=== PATIENT | female | born 1995 | race Caucasian/White ===

== ENCOUNTER 2017-11-08 21:16 | Emergency (ER) | payer OTHER, MEDICAID, SELFPAY ==
[2017-11-08 21:18] VITALS: BP 125/63; PULSE 80; RESP 18; TEMP 36.6; O2SAT 98; BMI 30.2
--- NOTE | 2017-11-08 22:23 | NURSING ---
PATIENT UNABLE TO PROVIDE A URINE SAMPLE AT THIS TIME.
[2017-11-08] MEDS: Acetaminophen 500 MG Tablet 1000 MG PO (23:04)
[2017-11-08] MEDS: proMETHazine 25 MG Tablet PO (23:05)
--- NOTE | 2017-11-08 23:26 | ED.VISSUMM ---
- ER Visit Summary Date of Service: 11/08/17 Chief Complaint: Back pain History of Present Illness: The patient is a 22 F increasing lower back pain over the past 2 days. States pain goes down both legs. No loss of bowel or bladder control. Patient is 7 weeks 5 days . . Using Tylenol, last dose at noon, however states she vomited up. Complains of nausea. Saw OB on Friday with the official ultrasound. History of similar when she was younger, requiring therapy. Currently on vitamins. Symptoms started after cleaning her car thinks she tweaked something. Was told she had herniated disc in the past. No surgical intervention. In addition states she had a UTI from a culture started on Macrobid 2 days ago. Is taking her medications. Denies fever. Physical Examination: General: Alert and oriented ?3, uncomfortable s HEENT: Normocephalic, atraumatic. Moist mucosa membranes Neck: supple, nontender. Cardiovascular: Regular rate and rhythm, no murmurs Respiratory: Normal breath sounds, symmetric, no distress Back: Lower lumbar tenderness. Straight leg test was negative however did elicit pain in her back. 2+ patellar reflex bilaterally. Abdomen: Soft, nontender, nondistended Extremities: Nontender, no edema, pulses intact ?4 Neuro: no focal neurological deficits. Test Results: [] Emergency Department Course and Treatment: Bedside ultrasound performed heart tone was 128. Patient history exam concerns for high sciatica symptoms for possible herniation with her history. She had no cauda equina symptoms. Discussed with patient parents at bedside and significant other, with her , safe treatment would be continuing Tylenol. Discussed increasing pain medicines will have more risk for her fetus. They understand. With her nausea symptoms she is given Phenergan and was able to keep down that in her Tylenol. She will call her physicians on Friday for outpatient follow-up for further treatment. All questions were answered. Patient currently on treatment for UTI from a culture result. Therefore UA was canceled. Treatment Plan: [] Disposition: Discharge Impression: 1. Sciatica 2. First trimester This note was generated with Neprisation software. It may contain incorrect words, spelling, and punctuation that were not noted in review of the chart prior to signing ED Disposition - Plan for ED Patient: Disposition: Home or Assisted Living Chief Complaint: Back Diagnosis: Sciatica, First trimester Instructions: ED Sciatica Prescriptions: proMETHazine tablet [Phenergan] 25 mg PO Q6H PRN PRN #10 tablet PRN Reason: Nausea Referrals: Ernst Gottlieb MD [Primary Care Provider] - 2 Days
--- NOTE | 2017-11-08 23:30 | ED.DCSUM_ITS ---
- ER Visit Summary Date of Service: 11/08/17 Chief Complaint: Back pain History of Present Illness: The patient is a 22 F increasing lower back pain over the past 2 days. States pain goes down both legs. No loss of bowel or bladder control. Patient is 7 weeks 5 days . . Using Tylenol, last dose at noon, however states she vomited up. Complains of nausea. Saw OB on Friday with the official ultrasound. History of similar when she was younger , requiring therapy. Currently on vitamins. Symptoms started after cleaning her car thinks she tweaked something. Was told she had herniated disc in the past. No surgical intervention. In addition states she had a UTI from a culture started on Macrobid 2 days ago. Is taking her medications. Denies fever. Physical Examination: General: Alert and oriented ?3, uncomfortable s HEENT: Normocephalic, atraumatic. Moist mucosa membranes Neck: supple, nontender. Cardiovascular: Regular rate and rhythm, no murmurs Respiratory: Normal breath sounds, symmetric, no distress Back: Lower lumbar tenderness. Straight leg test was negative however did elicit pain in her back. 2+ patellar reflex bilaterally. Abdomen: Soft, nontender, nondistended Extremities: Nontender, no edema, pulses intact ?4 Neuro: no focal neurological deficits. Test Results: [] Emergency Department Course and Treatment: Bedside ultrasound performed heart tone was 128. Patient history exam concerns for high sciatica symptoms for possible herniation with her history. She had no cauda equina symptoms. Discussed with patient parents at bedside and significant other, with her , safe treatment would be continuing Tylenol. Discussed increasing pain medicines will have more risk for her fetus. They understand. With her nausea symptoms she is given Phenergan and was able to keep down that in her Tylenol. She will call her physicians on Friday for outpatient follow-up for further treatment. All questions were answered. Patient currently on treatment for UTI from a culture result. Therefore UA was canceled. Treatment Plan: [] Disposition: Discharge Impression: 1. Sciatica 2. First trimester This note was generated with TickTickTicketsation software. It may contain incorrect words, spelling, and punctuation that were not noted in review of the chart prior to signing ED Disposition - Plan for ED Patient: Disposition: Home or Assisted Living Chief Complaint: Back Diagnosis: Sciatica, First trimester Instructions: ED Sciatica Prescriptions: proMETHazine tablet [Phenergan] 25 mg PO Q6H PRN PRN #10 tablet PRN Reason: Nausea Referrals: Ernst Gottlieb MD [Primary Care Provider] - 2 Days
[2017-11-08 23:38] VITALS: BP 124/70; PULSE 66; O2SAT 97
== END 2017-11-08 23:47 | disposition home or self-care (01) ==
PROVIDERS: Emergency Provider Emergency Medicine; Family Provider Pediatrics; PCP Pediatrics
DX: O99.89 Other specified diseases and conditions complicating pregnancy, childbirth and the puerperium (principal); M54.41 Lumbago with sciatica, right side; M54.42 Lumbago with sciatica, left side; O23.41 Unspecified infection of urinary tract in pregnancy, first trimester; Z3A.01 Less than 8 weeks gestation of pregnancy
CPT/HCPCS: 99283

== ENCOUNTER 2018-03-15 14:59 | Emergency (ER) | payer MEDICAID, SELFPAY ==
[2018-03-15 15:00] VITALS: BP 108/65; PULSE 105; RESP 16; TEMP 37.4; O2SAT 98; BMI 29.9
--- NOTE | 2018-03-15 15:31 | RAD_ITS ---
STUDY: X-RAY CHEST REASON FOR EXAM: Female, 22 years old. Cough and fever. TECHNIQUE: Frontal and lateral views of the chest. COMPARISON: None. FINDINGS: The lungs are clear and expanded. There is no demonstrated pleural abnormality. Normal size heart. Normal mediastinum and alphonse. Normal visualized pulmonary arteries. Normal visualized aortic arch and descending thoracic aorta. Normal visualized thoracic spine. Normal visualized ribs, clavicles, and shoulders. There is no demonstrated abnormality of the visualized soft tissue structures of the upper abdomen. RAD/Chest PA and Lateral IMPRESSION: Normal x-ray examination of the chest. Electronically Signed: Oliver Verma MD at 16:04 EDT , Service support ,
--- NOTE | 2018-03-15 16:12 | ED.VISSUMM ---
- ER Visit Summary Date of Service: 03/15/18 Chief Complaint: Shortness of breath cough and fever History of Present Illness: The patient is a 22 F who is 26 weeks . She states that beginning yesterday she has had rhinorrhea cough without sputum production. She notes nausea tributes to coughing. She states her temperature has been 99.9 at its maximum. She sees the [facility] at [facility]. Physical Examination: Afebrile vital signs are stable Gen: Well-nourished well-developed Head: Normocephalic atraumatic Eyes: Perrl EOMI ENT: TMs clear rhinorrhea and turbinate edema moist mucous membranes Neck: Supple no lymphadenopathy no JVD nontender CVS: Regular rate rhythm no murmurs normal S1-S2 Respiratory: No distress clear to auscultation bilaterally chest nontender Abdomen: Soft nontender nondistended normal bowel sounds no masses Back: Nontender Extremity: Nontender no edema Skin: Normal color no rash Neuro: alert orientated ?3 CN II-XII intact normal strength sensation reflexes gait cerebellar Psych: Normal affect normal mood Test Results: Chest x-ray negative. Emergency Department Course and Treatment: Received IV fluids. Tylenol and Zofran. Urinalysis shows ketones. No white cells. It is contaminated with some epithelial cells. Patient be discharged home with supportive care. I will write for some Phenergan. Impression: 1. Sinusitis 2. Third trimester 3. Dehydration This note was generated with Wee[employer] dictation software. It may contain incorrect words, spelling, and punctuation that were not noted in review of the chart prior to signing ED Disposition - Plan for ED Patient: Disposition: Home or Assisted Living Chief Complaint: Shortness of Breath Instructions: ED Sinusitis No Abx Prescriptions: proMETHazine tablet [Phenergan] 25 mg PO Q6H PRN PRN #10 tab PRN Reason: Nausea Referrals: Ginny Wiseman CNM [Certified Nurse [employer] Farmworker] - As Needed
[2018-03-15] MEDS: 0.9% Normal Saline 1,000 ML 999 ML IV (16:14)
[2018-03-15] MEDS: Acetaminophen 500 MG Tablet 1000 MG PO (16:14)
[2018-03-15] MEDS: Ondansetron 4 MG/2 ML Vial IV (16:15)
[2018-03-15 16:44] LABS: Red Blood Cells-Urine 0 SEEN /hpf (0-5)
[2018-03-15 16:45] LABS: Color, Urine Yellow (Yellow); Glucose, Dipstick Normal (Normal); Ketone-Dipstick 150 mg/dl (Negative); Leukocyte Esterase-Dipstick 25 /ul (Negative); Nitrite-Dipstick Negative (Negative); Occult Blood-Urine Negative /ul (Negative); Protein-Dipstick 30 mg/dl (Negative); Urine Bilirubin Dipstick 1 mg/dL (Negative); Urine Clarity Clear (Clear); Urine Urobilinogen 4 mg/dl (Normal)
[2018-03-15 16:55] LABS: White Blood Cells 0-5 SEEN /hpf (0-5)
[2018-03-15 16:56] LABS: Bacteria 2+ /hpf (None Seen); Mucous, Urine 3+ /hpf (<or=2+); Squamous Epithelial Cells - UA 10-25 SEEN /hpf (5-10)
[2018-03-15 17:13] VITALS: BP 123/88; PULSE 84; RESP 16; O2SAT 98
--- NOTE | 2018-03-15 17:13 | ED.RN ---
REVIEWED D/C INSTRUCTIONS, FOLLOW UP CARE, PRESCRIPTION, AND S/S THAT WOULD WARRANT A RETURN TO THE ED WITH PT. PT VERBALIZED AN UNDERSTANDING AND DENIES FURTHER QUESTIONS FOR THIS RN. PT SKIN P/W/D, RESP EVEN AND UNLABORED, PT A&O X 3, NO DISTRESS NOTED. PT AMBULATED OUT OF ED, GAIT STEADY.
== END 2018-03-15 17:14 | disposition home or self-care (01) ==
PROVIDERS: Emergency Provider Emergency Medicine
DX: O99.89 Other specified diseases and conditions complicating pregnancy, childbirth and the puerperium (principal); J32.9 Chronic sinusitis, unspecified; E86.0 Dehydration; Z3A.26 26 weeks gestation of pregnancy
CPT/HCPCS: 71046; 81001; 96361; 96374; 99283; J7030; A4216; J2405

== ENCOUNTER 2018-06-21 18:20 | Outpatient (CLI) | payer MEDICAID, SELFPAY ==
[2018-06-21 18:51] VITALS: BMI 34.0
[2018-06-21 19:13] LABS: ROM Internal Control Test YES-OK TO RESULT pt. (Internal QC); ROM Patient Test Negative (Negative)
--- NOTE | 2018-06-26 19:43 | OB.TRI.NOTE ---
History of Present Illness Date of Service: 06/21/18 Was patient seen by the physician?: No Reason For Visit: RULE OUT LABOR Date of Service: 06/21/18 Final CHUCK: 06/21/18 Gestational age: 40 Weeks and 5 Days Allergies No Known Allergies Allergy (Verified 06/21/18 18:53) Laboratory Studies: Laboratory Tests 06/21/18 Range/Units 18:45 Vag Amniotic Fld Detect Negative (Negative) Impression/Plan High risk primigravida at 40 weeks gestation false labor
== END 2018-06-21 20:50 | disposition home or self-care (01) ==
LOC: WPOUT 18:39 → WP 18:43
PROVIDERS: Referring Provider Obstetrics & Gynecology; Visit Provider Obstetrics & Gynecology
DX: O47.1 False labor at or after 37 completed weeks of gestation (principal); O09.93 Supervision of high risk pregnancy, unspecified, third trimester; Z3A.40 40 weeks gestation of pregnancy
CPT/HCPCS: 59025; 59050; 84112; 99218; G0378

== ENCOUNTER 2018-06-22 22:25 | Inpatient (IN) | payer MEDICAID, SELFPAY ==
[2018-06-21 18:51] VITALS: BMI 34.0
[2018-06-22 21:53] VITALS: BMI 33.6
[2018-06-22 22:19] LABS: ROM Internal Control Test YES-OK TO RESULT pt. (Internal QC); ROM Patient Test POSITIVE (Negative)
[2018-06-22] MEDS: Lactated Ringers 1,000 ML 50 ML IV (22:50)
[2018-06-22 23:20] LABS: Hematocrit 33.5 % (37-47); Hemoglobin 10.8 g/dl (12.0-15.0); Mean Corp Hgb Conc 32.2 g/gl (32-36); Mean Corpuscular Hgb 25.9 pg (27.0-32.0); Mean Corpuscular Volume 80.3 fL (81-99); Mean Platelet Vol. 12.7 fl (6.2-12.0); Platelet Count 215 K/mm3 (150-450); RBC Distribution Width CV 13.8 % (11.6-14.6); RBC Distribution Width SD 40.6 fl (35.1-43.9); Red Blood Count 4.17 M/mm3 (4.2-5.4); White Blood Count 14.9 K/mm3 (4.4-11.0)
[2018-06-22 23:22] LABS: Scan Indicated on CBC? Y/N NO
[2018-06-22] MEDS: Nalbuphine 10 MG/ML Ampul IV (23:34)
[2018-06-23] VITALS (11 sets, daily range): BP systolic 124–153; BP diastolic 43–92; PULSE 63–100; RESP 16–18; TEMP 37–37.4; O2SAT 95–98
[2018-06-23] MEDS: Lactated Ringers 1,000 ML 50 ML IV ×4 (00:05→17:25)
[2018-06-23] MEDS: fentaNYL-bupivacaine (epidural) 100 ML BAG EPIDURAL ×4 (00:45→14:54)
[2018-06-23] MEDS: Acetaminophen 500 MG Tablet 1000 MG PO ×2 (03:08→11:16)
--- NOTE | 2018-06-23 06:30 | HP.PCM_ITS ---
- Problem List (1) PROM with onset of labor within 24 hours of rupture Status: Acute Qualifiers: PROM gestational age: full term Qualified Code(s): O42.02 - Full-term premature rupture of membranes, onset of labor within 24 hours of rupture History Date of Admission: 06/22/18 Final CHUCK: 06/22/18 Final CHUCK Source: US <20 weeks Gestational age: 40 Weeks and 1 Days History of this : This is a 22 year-old, G [], P [], at 40 weeks gestational age. Allergies No Known Allergies Allergy (Verified 06/21/18 18:53) Home Medications: Home Medications Vit No.130/Iron/FA [ Vitamins] 1 each PO DAILY 03/15/18 Smoking Status: Former smoker Alcohol: None Substance Use Type: Alcohol Number of Fetus(es): 1 Heart Tracing: Baseline 125, moderate variability, + accels, no decels TOCO Analysis: Ctx q 2-6 minutes, palpate strong History Past Pregnancies: Past Pregnancies Delivery Date Name GA/Weeks Outcome Route Weight Gender Labor Length Anesthesia Delivery Location Provider FOB Labs: O+ Abs Neg, H/H = 14.6/44.7 -->11.9/36.4, Rubella NON-IMM, GBS POSITIVE, GC/CT = Neg/Neg, 1 hour GCT = 101, Urine Culture = Negative, Syphilis = Negative, HepBsAg = Negative, Urine Tox = Negative Expected Delivery Method: Spontaneous Vaginal Describe any other labor & delivery plans:: Epidural Number of Visits: 14 Review of Systems Constitutional: Denies: Chills, Fever, Weight Change HEENT: Denies: Head Aches, Sinus Congestion, Sinus Drainage Cardiovascular: Denies: Chest Pain, Palpitations Respiratory: Denies: Cough, Shortness of breath at rest, Sputum production Gastrointestinal: Denies: Abdominal Pain, Nausea, Vomiting Genitourinary: Denies: Dysuria Gynecological: Reports: Vaginal discharge - Scant clear fluid - +ROM plus Musculoskeletal: Denies: Joint Pain, Joint Tenderness Skin: Denies: Rash, Wounds Neurological: Denies: Numbness, Tingling, Focal weakness Psychiatric: Denies: Anxiety, Depression, Homicidal Ideations, Suicidal Ideations Hematologic/ Lymphatic: Denies: Easy Bruising, Easy Bleeding Physical Exam Vitals: See nursing notes for vital signs General: Alert, Oriented x3, No apparent distress HEENT: Atraumatic, Normocephalic. Negative for: Thyromegaly, Lymphadenopathy Cardiovascular: Regular rate, Regular Rhythm Lungs: Normal air movement Abdomen: Soft, Non Tender, Non-Distended Neurological: Deep Tendon Reflexes 2+/4 and Symmetrical, Neuro grossly intact LIGHT ARMORED RECONNAISSANCE OFFICER: Normal external genitalia. Negative for: Vulvar lesions Estimated gestational size: Appropriate for gestational size Presentation: Cephalic Cervix Dilation (cm): 1 - Exam on admission by RN Station: -2 Effacement (%): 85 Assessment/Plan All Active Problems PROM with onset of labor within 24 hours of rupture (Acute) This is a 22 year-old, G [1], P [0], at 40 weeks gestational age, PROM, Category I FHT. 1) Admit Patient, Dr. Platt OB back-up notified of admission 2) Start IV, draw CBC and T+S, start PCN abx for GBS prophylaxis 3) Nubain 10mg IV push x 1 now 4) Epidural on demand after 3cm 5) Encourage position changes and PO hydration 6) Reassess for cervical change PRN Marilee Allison RADIO FREQUENCY ENGINEER-CNM
--- NOTE | 2018-06-23 06:36 | PCM.PN.BLA ---
Progress Note Addendum: Patient labored well throughout the night. Made spontaneous progression to 4-5cm and then 8cm/100/0 @ 0445. Category I FHT still noted at this time. Isolated elevated temperature noted by nursing after patient received epidural. Patient noted to have very concentrated urine also. Fluid bolus and 1 g Tylenol given and temperature retaken in 1 hour; last temp was 98.3F. No evidence of maternal or tachycardia noted. Will continue to monitor patient for signs/symptoms of fever and infection. Anticipate reassessment for cervical change by 0700. If minimal or no change, anticipate placement of FSE and IUPC with plans to start IV pitocin for labor augmentation. Marilee MARQUEZ
--- NOTE | 2018-06-23 06:58 | PCM.PN.OB ---
Patient Problems: Active and Suspected Problems PROM with onset of labor within 24 hours of rupture (Acute) Subjective: Patient comfortable sitting up in bed with epidural. Denies any other issues at this time. Reports some occasional pelvic pressure sensations during contractions. Decision made for repeat SVE at this time. Objective: FHT baseline 130, moderate variability, + accels, no decels noted Ctx q 2-6 minutes, palpating mild to moderately strong SVE = 8/100/0 unchanged, +caput. - Physical Exam General: Alert, Oriented x3, Cooperative HEENT: Atraumatic, Normocephalic Lungs: Normal air movement Abdomen: Non Tender, Gravid, - - Baby LOT by Chuckie's with EFW = 8# Extremities: No edema, Capillary Refill Less than 3 Seconds Skin: No rashes, No breakdown Musculoskeletal: No Tenderness to Palpation of Joints or Extremities Neurological: Cranial nerves II-XII grossly intact Psych/Mental Status: Normal Affect, Appropriate Weight: 215 lb Body Mass Index (BMI) 33.6 Laboratory Tests Past 24 Hrs 06/22/18 06/22/18 06/22/18 21:35 23:00 23:00 WBC 14.9 H RBC 4.17 L Hgb 10.8 L Hct 33.5 L MCV 80.3 L MCH 25.9 L MCHC 32.2 RDW 13.8 RDW Differential 40.6 Plt Count 215 MPV 12.7 H Vag Amniotic Fld Detect POSITIVE H Blood Type O POSITIVE Antibody Screen NEGATIVE Medical Necessity - Tobacco Use Smoking Status: Former smoker Assessment/Plan All Active Problems PROM with onset of labor within 24 hours of rupture (Acute) 22 y/o @ 40+1weeks, Category I FHT, PROM x 14 hours, GBS Postiive with adequate treatment, Protracted Transition Stage of Labor P: 1) IUPC and FSE placed 2) If inadequate ctx noted, start IV Pitocin for labor augmentation 3) Anticipate 4) Oncoming provider Dr. Cuellar updated on patient status Marilee MARQUEZ
[2018-06-23] MEDS: Oxytocin 30 units/NS 500 ml 30 UNITS/500 ML IV.SOLN IV (08:00)
--- NOTE | 2018-06-23 11:55 | PCM.PN.BLA ---
Progress Note pt seen at bedside, VE performed- AL/100/0 with Caput noted. Pt with second fever of 100.9F- no foul discharge noted but patient is warm to touch on exam. Pt received 1000mg Tylenol approx 11:15am- has had 4 doses PCN for +GBS. will Order Gentamycin 5mg/kg x 1 dose. Will get CBC with diff. continue Pitocin. FHR category 1 at this time. will continue to labor.
[2018-06-23] MEDS: Ondansetron 4 MG/2 ML Vial IV (12:33)
[2018-06-23] MEDS: 0.9% Saline Lock 10 ML Syringe IV ×2 (12:40→15:11)
[2018-06-23 12:48] LABS: Absolute Lymphocyte Count 1.09 X10^3/ul (0.83-4.51); Absolute Neutrophil Count 12.1 X10^3/uL (2.0-7.7); Basophil# 0.01 X10^3/uL; Basophil% 0.1 % (0-1); Eosinophil# 0.02 X10^3/uL; Eosinophils% 0.1 % (0-5); Hematocrit 32.8 % (37-47); Hemoglobin 10.5 g/dl (12.0-15.0); Lymphocyte # 1.09 X10^3/ul (4.0); Lymphocyte % 7.3 % (19-41); Mean Corpuscular Hgb 25.8 pg (27.0-32.0); Mean Corpuscular Volume 80.6 fL (81-99); Mean Platelet Vol. 12.2 fl (6.2-12.0); Monocyte# 1.63 X10^3/uL; Neutrophil # 12.09 X10^3/uL (2.7-7.7); Neutrophil % 81.4 % (47-70); Platelet Count 193 K/mm3 (150-450); RBC Distribution Width CV 14.1 % (11.6-14.6); RBC Distribution Width SD 41.1 fl (35.1-43.9); Red Blood Count 4.07 M/mm3 (4.2-5.4); White Blood Count 14.9 K/mm3 (4.4-11.0)
[2018-06-23 12:54] LABS: POSITIVE COUNT NO; POSITIVE DIFFERENTIAL NO; POSITIVE MORPHOLOGY NO
[2018-06-23 13:04] LABS: Differential Comment SCANNED
--- NOTE | 2018-06-23 16:37 | PCM.PN.BLA ---
Progress Note patient seen at bedside- was FD at approx 3:30pm- some debate about anterior lip previously by nursing staff. pt is now pushing- at this time not pushing effectively- head feels OP position. Will continue to push at this time.
--- NOTE | 2018-06-23 18:01 | PCM.PN.BLA ---
Progress Note pt still pushing- good maternal effort- minimal descent- caput present. head +1 station. Will continue for another 30min and no further progress will proceed with primary cs for arrest of descent.
--- NOTE | 2018-06-23 18:29 | PCM.PN.BLA ---
Progress Note pt seen at bedside, Examined- with good maternal effort with pushing head still 0/+1 with significant caput. decision made at this time to proceed with primary cs for arrest of descent. pt and partner was counseled on risks of surgery including but not limited to bleeding, infection, injury to pelvic structures and trauma with delivery. Pt and partner verbalized understanding and OR team was notified.
[2018-06-23] MEDS: Cefazolin 2 GM in 0.9% Normal Saline 100 ML IV (19:00)
[2018-06-23] MEDS: Oxytocin 30 units/NS 500 ml 30 UNITS/500 ML IV.SOLN 167 UNITS IV (19:07)
[2018-06-23] MEDS: Methylergonovine 0.2 MG/ML Ampul IM (19:10)
--- NOTE | 2018-06-23 19:42 | PCM.IMED.CSR ---
R-Imkzfuq-Epzksflmr PostOp Date of Procedure: 06/23/18 Primary Surgeon/Physician: Elsie Nunn mine environmental engineer: Tessa Araya Pre-op Diagnosis: Arrrest of Descent Post-Op Diagnosis: Arrrest of Descent Surgery/Procedure Performed: Primary low transverse Section Description of Surgical Findings:: Operative note: pt presented in spontaneous labor and progressed to 8cm- at this time labor progress slowed from approximately 0445 until complete at approximately 1530 - Pt was complete and pushing for approximately three hours with arrest of descent and caput. Decision made for primary c/s. After informed consent was obtained the patient was taken the operating room- epidural anesthesia was dosed- She was then placed in the supine position. She was prepped and draped in the normal sterile fashion. Anesthesia was found to be adequate. At this time a Pfannenstiel skin incision was made with a knife was carried down to the underlying layer of the fascia. The fascial incision was then extended laterally using curved De La Cruz scissor. Attention was then turned to the superior aspect of the fascial edge was grasped with 2 straight [place] clamps tented up and the rectus muscle dissected off sharply using curved De La Cruz scissor. Attention was then turned to the inferior aspect where again Beatrice clamps were placed in the rectus muscles were tented up and the fascia was dissected off sharply using the curved De La Cruz scissor. Rectus muscles were then in the midline and peritoneum was entered bluntly. Gentle opposing traction was placed. At this time the vesicouterine peritoneum was identified. Bladder flap was created and taken down digitally. Scalpel was used to make a uterine incision in a low transverse fashion. The uterus was then entered bluntly gentle opposing traction was placed to extend this incision. with a gentle push up from vagina to disengage fetus the Infant's head was brought to the uterine incision was delivered atraumatically. Cord was clamped and cut after approximately 60seconds - was handed to the waiting nursery team. The Placenta was removed from the uterus. The uterus was then removed from the abdominal cavity. The uterus was cleared of all clots and debris using a lap. At this time the uterine incision was reapproximated using #1 Vicryl in a running locked fashion. A second imbricating layer was placed using 1-0 vicryl. Hemostasis was appreciated but uterus demonstrated atony at this time methergine was given. Posterior cul-de-sac was then cleared of all clots and debris. Uterus firm at this time. Uterus was placed back in the abdominal cavity. Gutters were cleared of all clots and debris. Uterine incision was reevaluated and noted to be of excellent hemostasis. Ben placed. At this time the peritoneum was grasped with Kellys reapproximated using #2 Vicryl suture in a running fashion. Fascia was then reapproximated using #1 Vicryl in a running fashion. Subcu layer was reapproximated with #2 0 plain gut suture in an interrupted fashion. Subcu layer was closed using 4-0 Monocryl in a subcu fashion. Dry sterile dressing was applied. Instrument lap needle count correct ?2. Anticipated normal postoperative course. Estimated Blood Loss: 800 Specimens Removed: placenta Drain: Dubon to straight drain Type of Anesthesia: Epidural - Admit VTE Documentation VTE Present on Admission: Yes VTE Mechan Device Prophylaxis: SCD's VTE Pharm Prophylaxis ordered?: Yes
[2018-06-23] MEDS: Lactated Ringers 1,000 ML 100 ML IV (20:09)
[2018-06-24] VITALS (18 sets, daily range): BP systolic 112–133; BP diastolic 52–78; PULSE 72–114; RESP 16–20; TEMP 35.9–37.8; O2SAT 95–100
[2018-06-24] MEDS: Ketorolac 30 MG/ML Syringe IV ×3 (00:39→12:21)
[2018-06-24] MEDS: Enoxaparin 40 MG/0.4 ML Syringe SC (06:03)
[2018-06-24] MEDS: Lactated Ringers 1,000 ML 100 ML IV (06:04)
[2018-06-24 06:29] LABS: Hematocrit 26.6 % (37-47); Hemoglobin 8.4 g/dl (12.0-15.0); Mean Corp Hgb Conc 31.6 g/gl (32-36); Mean Corpuscular Hgb 25.9 pg (27.0-32.0); Mean Corpuscular Volume 82.1 fL (81-99); Mean Platelet Vol. 12.5 fl (6.2-12.0); Platelet Count 157 K/mm3 (150-450); RBC Distribution Width CV 14.1 % (11.6-14.6); RBC Distribution Width SD 40.9 fl (35.1-43.9); Red Blood Count 3.24 M/mm3 (4.2-5.4); White Blood Count 11.7 K/mm3 (4.4-11.0)
[2018-06-24 06:35] LABS: Scan Indicated on CBC? Y/N NO
--- NOTE | 2018-06-24 08:09 | PCM.PN.OB ---
Patient Problems: Active and Suspected Problems PROM with onset of labor within 24 hours of rupture (Acute) Subjective: pt seen at bedside, doing well. pt reports good pain control. lochia mild. Ness in place. tolerating regular diet. Denies CP, SOB, dizziness. some incision site pain. - Physical Exam General: Alert, Oriented x3 Abdomen: Soft, - - appropriately tender. Fundus firm. Incision dressing dry and intact Extremities: No Calf Tenderness Vital Signs Temp Pulse Resp BP Pulse Ox 99.8 F H 77 17 133/59 H 97 06/24/18 06:23 06/24/18 06:58 06/24/18 06:58 06/24/18 04:00 06/24/18 06:58 Oxygen Delivery Method Room Air Weight: 97.522 kg Body Mass Index (BMI) 33.6 Intake and Output for Last 24 Hours 06/22/18 06/23/18 06/24/18 23:59 23:59 23:59 Intake Total 7594 / 7594 900 / 900 Output Total 1250 / 1250 850 / 850 Balance 6344 / 6344 50 / 50 Microbiology Past 72 Hours 06/23/18 20:40 Influenza Types A,B Direct FA (VERONICA) - Final Mucosa - Nasopharyngeal Laboratory Tests Past 24 Hrs 06/23/18 06/24/18 12:20 06:00 WBC 14.9 H 11.7 H RBC 4.07 L 3.24 L Hgb 10.5 L 8.4 L Hct 32.8 L 26.6 L MCV 80.6 L 82.1 MCH 25.8 L 25.9 L MCHC 32.0 31.6 L RDW 14.1 14.1 RDW Differential 41.1 40.9 Plt Count 193 157 MPV 12.2 H 12.5 H Immature Gran % (Auto) 0.100 Neut % (Auto) 81.4 H Lymph % (Auto) 7.3 L Robeson % (Auto) 11.0 H Eos % (Auto) 0.1 Baso % (Auto) 0.1 Absolute Neuts (auto) 12.1 H Absolute Lymphs (auto) 1.09 Total Counted Not Reportable Differential Comment SCANNED Medical Necessity - Tobacco Use Smoking Status: Former smoker Assessment/Plan All Active Problems PROM with onset of labor within 24 hours of rupture (Acute) POD#1 doing well s/p Primary cs for arrest of descent 1) Pain mgmt 2) ambulation 3) dc ness 4) montior VS- afebrile at this time 5) routine care
[2018-06-24] MEDS: 0.9% Saline Lock 10 ML Syringe IV ×2 (12:21→18:13)
[2018-06-24] MEDS: Naproxen 250 MG Tablet PO (18:22)
[2018-06-25] MEDS: oxyCODONE 5 MG Tablet PO ×3 (02:18→23:04)
[2018-06-25 02:21] VITALS: BP 124/55; PULSE 83; RESP 20; TEMP 36.1; O2SAT 98
[2018-06-25] MEDS: Acetaminophen 500 MG Tablet 1000 MG PO ×2 (05:57→19:12)
[2018-06-25] MEDS: Enoxaparin 40 MG/0.4 ML Syringe SC (06:07)
[2018-06-25] MEDS: Senna/Docusate Sodium 1 Tablet PO (07:53)
--- NOTE | 2018-06-25 08:55 | PCM.PN.OB ---
Patient Problems: Active and Suspected Problems PROM with onset of labor within 24 hours of rupture (Acute) Subjective: Pain well controlled, average lochia, positive flatus, no bowel movement yet. Tolerating regular diet and oral pain medication. No new complaints. Denies any fevers, chills, chest pain or shortness of breath - Physical Exam General: Cooperative, No apparent distress Abdomen: Soft, Non-Distended, Tender - Appropriately Extremities: Edema - Trace Skin: Incision - Bandage covered by silver bandage. No surrounding erythema. The bandages clean dry and intact Vital Signs Temp Pulse Resp BP Pulse Ox 97.0 F L 83 20 H 124/55 H 98 06/25/18 02:21 06/25/18 02:21 06/25/18 02:21 06/25/18 02:21 06/25/18 02:21 Oxygen Delivery Method Room Air Weight: 97.522 kg Body Mass Index (BMI) 33.6 Intake and Output for Last 24 Hours 06/23/18 06/24/18 06/25/18 23:59 23:59 23:59 Intake Total 7594 / 7594 1570 / 1570 Output Total 1250 / 1250 1850 / 1850 Balance 6344 / 6344 -280 / -280 Microbiology Past 72 Hours 06/23/18 20:40 Influenza Types A,B Direct FA (VERONICA) - Final Mucosa - Nasopharyngeal Medical Necessity - Tobacco Use Smoking Status: Former smoker Assessment/Plan All Active Problems PROM with onset of labor within 24 hours of rupture (Acute) Postoperative day #2 status post primary section. Patient is doing well. Discharge home today with routine instructions if okay with pediatrics. She is to follow-up in the office in 1 week or as needed. Patient was educated about signs and symptoms of infection.
[2018-06-25 14:45] VITALS: BP 112/51; PULSE 79; TEMP 36.8; O2SAT 98
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
[2018-06-25 18:00] VITALS: BP 122/65; PULSE 84; RESP 16; TEMP 36.6; O2SAT 97
[2018-06-25 22:00] VITALS: BP 128/63; PULSE 76; RESP 18; TEMP 36.3; O2SAT 99
[2018-06-26 02:00] VITALS: BP 112/66; PULSE 70; RESP 18; TEMP 36.4
[2018-06-26] MEDS: Enoxaparin 40 MG/0.4 ML Syringe SC (06:24)
--- NOTE | 2018-06-26 08:42 | PCM.DCCSEC ---
Discharge Diet: No Restrictions Discharge Activity: May not drive while taking narcotic pain medications., May Shower May resume sexual activity in: 4-6 weeks Weight Bearing Status: Full weight bearing Lifting Restrictions: 20 pounds Call your doctor if your incision/area has: Continuous Slow Oozing, Sudden Increased Bleeding, Increased Pain/ Swelling, Increased Redness, Foul Smelling Discharge Call your doctor if you observe: Fever of 101 or Higher, Coldness, Increased Pain, Change in Color, Inability to urinate, Inability to have a bowel movement, Using more than one pad per hour, Shortness of breath, Chest pain, Increased palpitations (irregular heartbeat), Calf discomfort, Uncontrolled pain Suture Line Care: Avoid Pulling/Pushing Change Dressing in (Days):: 4 Cleanse incision/area with: Keep Dressing Clean & Dry Additional Instructions: If you experience any of the following, contact your healthcare provider. Bleeding that soaks a pad every hour for 2 hours Fever 100.4 or higher Unrelieved incision or abdominal pain Swelling, redness, discharge or bleeding from your incision or episiotomy site Your incision begins to separate Problems urinating (including inability to urinate or burning while urinating). Visual changes Severe headache Flu-like symptoms Pain or redness in one of both of your breasts Pain, warmth, tenderness or swelling in your legs, especially the calf area Frequent nausea and vomiting Symptoms of depression or anxiety If you experience any of the following, call 911 or go to the nearest Emergency Room. Chest pain Problems breathing Seizure activity Partial or complete paralysis of a body part, slurred speech, weakness or drooping of the face, or a sudden inability to walk or hold your balance Allergies/Adverse Reactions: Allergies No Known Allergies Allergy (Verified 06/21/18 18:53) Medications to take at Discharge Vit No.130/Iron/FA [ Vitamins] 1 each PO DAILY 03/15/18 Follow-Up: Call to make an appointment with your doctor for an incision check in 1-2 weeks. You will also need a 6 week post- follow up appointment. Test results from this visit will be discussed in further detail at your follow-up appointment, if applicable. Please Follow Up With: Elsie Nunn MD Primary Care Physician: Care Physician,No Primary [Primary Care Provider] -
--- NOTE | 2018-06-26 08:45 | DCINST_ITS ---
Discharge Diet: No Restrictions Discharge Activity: May not drive while taking narcotic pain medications., May Shower May resume sexual activity in: 4-6 weeks Weight Bearing Status: Full weight bearing Lifting Restrictions: 20 pounds Call your doctor if your incision/area has: Continuous Slow Oozing, Sudden Increased Bleeding, Increased Pain/ Swelling, Increased Redness, Foul Smelling Discharge Call your doctor if you observe: Fever of 101 or Higher, Coldness, Increased Pain, Change in Color, Inability to urinate, Inability to have a bowel movement, Using more than one pad per hour, Shortness of breath, Chest pain, Increased palpitations (irregular heartbeat), Calf discomfort, Uncontrolled pain Suture Line Care: Avoid Pulling/Pushing Change Dressing in (Days):: 4 Cleanse incision/area with: Keep Dressing Clean & Dry Additional Instructions: If you experience any of the following, contact your healthcare provider. * Bleeding that soaks a pad every hour for 2 hours * Fever 100.4 or higher * Unrelieved incision or abdominal pain * Swelling, redness, discharge or bleeding from your incision or episiotomy site * Your incision begins to separate * Problems urinating (including inability to urinate or burning while urinating). * Visual changes * Severe headache * Flu-like symptoms * Pain or redness in one of both of your breasts * Pain, warmth, tenderness or swelling in your legs, especially the calf area * Frequent nausea and vomiting * Symptoms of depression or anxiety If you experience any of the following, call 911 or go to the nearest Emergency Room. * Chest pain * Problems breathing * Seizure activity * Partial or complete paralysis of a body part, slurred speech, weakness or drooping of the face, or a sudden inability to walk or hold your balance Allergies/Adverse Reactions: Allergies No Known Allergies Allergy (Verified 06/21/18 18:53) Medications to take at Discharge Vit No.130/Iron/FA [ Vitamins] 1 each PO DAILY 03/15/18 Follow-Up: Call to make an appointment with your doctor for an incision check in 1-2 weeks. You will also need a 6 week post- follow up appointment. Test results from this visit will be discussed in further detail at your follow- up appointment, if applicable. Please Follow Up With: Elsie Nunn MD Primary Care Physician: Care Physician,No Primary [Primary Care Provider] -
--- NOTE | 2018-06-26 08:47 | PCM.DC.SUM ---
Discharge Date and Diagnosis - Problem List Patient Problems: Active and Suspected Problems PROM with onset of labor within 24 hours of rupture (Acute) Date of Admission: 06/22/18 Date of Discharge: 06/26/18 - Primary Discharge Diagnosis Active and Suspected Problems PROM with onset of labor within 24 hours of rupture (Acute) Hospital Course and Treatment Operations: - - Section Summary of Care Provided: The patient is a 22 year old F [] Patient Problems: Active and Suspected Problems PROM with onset of labor within 24 hours of rupture (Acute) - Physical Exam General: Alert, Oriented x3, Cooperative HEENT: Atraumatic, Normocephalic Lungs: Clear to auscultation, Normal air movement, No rhonchi, No wheeze Cardiovascular: Regular rate, Regular Rhythm, No murmurs Abdomen: Bowel Sounds Present, Soft, Non Tender, - - Fundus firm 2 below. Silver dressing intact and dry. No drainage. Extremities: No edema Psych/Mental Status: Normal Affect, Appropriate Vital Signs Temp Pulse Resp BP Pulse Ox 97.5 F L 70 18 112/66 99 06/26/18 02:00 06/26/18 02:00 06/26/18 02:00 06/26/18 02:00 06/25/18 22:00 Oxygen Delivery Method Room Air Weight: 215 lb Body Mass Index (BMI) 33.6 Intake and Output for Last 24 Hours 06/24/18 06/25/18 06/26/18 23:59 23:59 23:59 Intake Total 1570 / 1570 Output Total 1850 / 1850 Balance -280 / -280 Microbiology Past 72 Hours 06/23/18 20:40 Influenza Types A,B Direct FA (VERONICA) - Final Mucosa - Nasopharyngeal Discharge Diet: No Restrictions Discharge Activity: May not drive while taking narcotic pain medications., May Shower May resume sexual activity in: 4-6 weeks Weight Bearing Status: Full weight bearing Call your doctor if your incision/area has: Continuous Slow Oozing, Sudden Increased Bleeding, Increased Pain/ Swelling, Increased Redness, Foul Smelling Discharge Call your doctor if you observe: Fever of 101 or Higher, Coldness, Increased Pain, Change in Color, Inability to urinate, Inability to have a bowel movement, Using more than one pad per hour, Shortness of breath, Chest pain, Increased palpitations (irregular heartbeat), Calf discomfort, Uncontrolled pain Suture Line Care: Avoid Pulling/Pushing Change Dressing in (Days):: 4 Cleanse incision/area with: Keep Dressing Clean & Dry Home Medications: Medications to take at Discharge Vit No.130/Iron/FA [ Vitamins] 1 each PO DAILY 03/15/18 Primary Care Physician: Care Physician,No Primary [Primary Care Provider] - Please Follow Up With: Elsie Nunn MD Patient Instructions: After a , Discharge Instructions for Section (), at Home Disposition: Home Patient Condition:: Good Medical Necessity - Tobacco Use Smoking Status: Former smoker Meaningful Use Info Meaningful Use Diagnoses (Choose all that apply): None applicable
--- NOTE | 2018-06-26 08:52 | PCM.PROGNOTE ---
Patient Problems: Active and Suspected Problems PROM with onset of labor within 24 hours of rupture (Acute) Subjective: Doing well per patient and nursing staff. Ambulating and taking PO without difficulty. Voiding and passing flatus. Denies any headache, CP, SOB, increased vaginal bleeding or clots, no leg pain. Pain controlled. without difficulty. Planning D/C home today. - Physical Exam General: Alert, Oriented x3, Cooperative HEENT: Atraumatic, Normocephalic Lungs: Clear to auscultation, Normal air movement, No rhonchi, No wheeze Cardiovascular: Regular rate, Regular Rhythm, No murmurs Abdomen: Bowel Sounds Present, Soft, Non Tender, - - Fundus firm 2 below U. Silver dressing dry and intact, no drainage. Extremities: No edema, - - Morales's negative Psych/Mental Status: Normal Affect, Appropriate Vital Signs Temp Pulse Resp BP Pulse Ox 97.5 F L 70 18 112/66 99 06/26/18 02:00 06/26/18 02:00 06/26/18 02:00 06/26/18 02:00 06/25/18 22:00 Oxygen Delivery Method Room Air Weight: 215 lb Body Mass Index (BMI) 33.6 Intake and Output for Last 24 Hours 06/24/18 06/25/18 06/26/18 23:59 23:59 23:59 Intake Total 1570 / 1570 Output Total 1850 / 1850 Balance -280 / -280 Microbiology Past 72 Hours 06/23/18 20:40 Influenza Types A,B Direct FA (VERONICA) - Final Mucosa - Nasopharyngeal Medical Necessity - Tobacco Use Smoking Status: Former smoker Assessment/Plan All Active Problems PROM with onset of labor within 24 hours of rupture (Acute) A: POD #3 P: 1) Routine PP instructions given and instructions. 2) Routine postop care 3) D/C home today 4) Follow up in 1-2 weeks for incision check.
[2018-06-26 09:25] VITALS: BP 123/75; PULSE 79; RESP 16; TEMP 36.5
--- NOTE | 2018-06-26 11:30 | CASEMGMT ---
Social Work Labor and Delivery Unit Met with mother of baby (MOB) and father of baby (FOB) today. MOB up in room, moving around and greeted this engineering technical writer with a smile. Provided MOB with resources list for [facility], maternal home visiting programs in [facility], [facility] applications and contact numbers fr [facility], as well as depression packet with local mental health resources and online support programs. MOB accepting of information given and reports no issues with home going. [facility]G referral submitted via the [facility] secure's website today. No other services requested or indicated. -PRABHA Toledo, CEMENT BREAKER
--- OUTSIDE RECORDS SUMMARY | 2018-08-04 17:13 | XMS RPT_ITS ---
:1995 Author Organization OHIP Care Team Providers Name Role Phone FarrahRoderick Attending Unavailable Ernst Gottlieb Primary Care Unavailable Regis Khan Attending Unavailable Primay Care Physicia, No Primary Care Unavailable Jess Lund Attending Unavailable Jess Lund Referring Unavailable Primay Care Physicia, No Primary Care Unavailable Primay Care Physicia, No Primary Care Unavailable Elsie Nunn Attending Unavailable Elsie Nunn Admitting Unavailable Elsie Nunn Referring Unavailable MCKAYLA MONREAL (DEPLOYMENT SPECIALIST) Attending Unavailable MCKAYLA MONREAL (DEPLOYMENT SPECIALIST) Attending Unavailable MCKAYLA MONREAL (DEPLOYMENT SPECIALIST) Referring Unavailable ELSIE BATEMAN Attending Unavailable KARRIE MARTINEZ) Attending Unavailable NEYHART ARCHULETA, ELSIE Referring Unavailable MIKE, ANKIT (CNM) Attending Unavailable NEYHART ARCHULETA, ELSIE Referring Unavailable GARCÍA, ROOSEVELT A Attending Unavailable NEYHART ARCHULETA, ELSIE Referring Unavailable MIKE, ANKIT (CNM) Referring Unavailable WISEMAN, GINNY (CNM) Attending Unavailable GARCÍA, ROOSEVELT A Attending Unavailable WISEMAN, GINNY (CNM) Referring Unavailable GARCÍA, ROOSEVELT A Attending Unavailable MIKE, ANKIT (CNM) Referring Unavailable MIKE, ANKIT (CNM) Attending Unavailable WISEMAN, GINNY (CNM) Referring Unavailable WISEMAN, GINNY (CNM) Attending Unavailable WISEMAN, GINNY (CNM) Referring Unavailable JESS LUND Attending Unavailable MIKE, ANKIT (CNM) Attending Unavailable MIKE, ANKIT (CNM) Attending Unavailable MIKE, ANKIT (CNM) Attending Unavailable FLORY HERNANDEZ Attending Unavailable MIKE, ANKIT (CNM) Attending Unavailable MIKE, ANKIT (CNM) Attending Unavailable MIKE, ANKIT (CNM) Attending Unavailable MIKE, ANKIT (CNM) Attending Unavailable NEYHART ARCHULETA, ELSIE Attending Unavailable NEYHART ARCHULETA, ELSIE Referring Unavailable NEYHART ARCHULETA, ELSIE Attending Unavailable NEYHART ARCHULETA, ELSIE Referring Unavailable PROBLEMS PROBLEMS DATE TYPE CONDITION / CODE ATTENDING STATUS SOURCE 06/26/2018 Unknown O82 - Encounter for Neyhart-McInto Active [facility] delivery [facility] without indication / Hospital O82(ICD-10) Repository 03/18/2018 Active 26 weeks gestation NA Active [facility] of / Clinic Main Z3A.26(ICD-10) [place] Repository 03/27/2018 Unknown R06.02 - Regis Jarrell Active [facility] of breath / Community R06.02(ICD-10) Hospital Repository 12/08/2017 Active 12 weeks gestation NA Active [facility] of / Clinic Main Z3A.12(ICD-10) [place] Repository 12/08/2017 Active Encounter for NA Active [facility] screening, Clinic Main unspecified / [facility] Z36.9(ICD-10) Repository 12/05/2017 Admitting Unknown / NA Active [facility] Medical diagnosis UNK(Unknown) Center [place] Repository 11/06/2017 Active Other abnormal NA Active [facility] findings on Clinic Main microbiological [place] examination of urine Repository / R82.79(ICD-10) 11/17/2017 Active Encounter for NA Active [facility] supervision of Clinic Main normal first [place] , first Repository trimester / Z34.01(ICD-10) 05/19/2018 Unknown M54.9 - Dorsalgia, Le, Roderick Active [facility] unspecified / Community M54.9(ICD-10) Hospital Repository 09/17/2017 Active Unknown / MIRZA, MCKAYLA Active [facility] UNK(Unknown) (DEPLOYMENT SPECIALIST) Clinic Main [place] Repository PROCEDURES PROCEDURES No Procedure Records FoundRESULTS RESULTS PROGRESS Observed: 07/10/2018 Status: COMPLETED Source: [place] 9:34 AM [facility] REPOSITORY HNO ID: [id number] Author: Elsie Archuleta Service: (none) Author Type: Physician Type: Progress Notes Filed: 07/10/2018 9:57 AM Note Text: SUBJECTIVE: 22 year old female presents for 2 week post-op exam. Reports incision site improving- still with some drainage. Denies fever. Pt admits to PP depression- denies SI or HI. Reports does have help at home. Pt requesting medication at this time. OBJECTIVE: Incision: mild erythema and induration- improved since last visit. Scant drainage on right side of incision- no wound dehiscence noted. Abdomen: Soft, Non-tender and No palpable masses PLAN: RTO for 6 week check zoloft 50mg daily started- risks and common SE reviewed Counseling recommended - given card to counseling center - pt will call if symptoms get worse. I have reviewed and updated past medical and surgical history, medications and allergies. Elsie Nunn MD PROGRESS Observed: 07/06/2018 Status: COMPLETED Source: [place] 1:33 PM [facility] REPOSITORY HNO ID: [id number] Author: Elsie Archuleta Service: (none) Author Type: Physician Type: Progress Notes Filed: 07/06/2018 2:30 PM Note Text: Gideon Ball is a 22 year old female who presents for Nexplanon insertion. No LMP recorded. Also with complaints of C/S site drainage since Friday. No fevers. VITALS: There were no vitals taken for this visit. test: negative Nexplanon lot #: [id number] Exp date: 07/2020 UNIVERSAL PROTOCOL / SAFETY CHECKLIST Procedure to be performed: Nexplanon insertion Sign in Communication: Completed Time Out: Team Confirms the Correct Patient, Correct Procedure, Correct Site and Site Marking, Correct Position (if applicable), Prep and Dry Time (if applicable). Time: Affirmation of Time Out: YES Sign Out Discussion: Completed TECHNIQUE: Patient placed in supine position with left) bent at the elbow and placed over the head. Skin cleansed with betadine. 2.5mL of 1% lidocaine with 1:100,000 epi injected subQ along insertion site. Nexplanon marie inserted under sterile technique. The marie was palpable under the skin after insertion and the notch visible on the trochar after insertion. Steristrips and sterile pressure dressing applied. AANDP: Nexplanon inserted without complications. Patient user card was filled out and given to the patient. The patient was instructed to remove the dressing after 24 hours. Advised to use backup contraception for 7 days. Follow up in 5 days- C/S incision check- KEFLEX started Elsie Nunn MD SUBJECTIVE: 22 year old female presents for 2 week post-op exam. OBJECTIVE: Incision: Draining scan amt of purulent drainage, reddened induration on inferior aspect. Abdomen: Soft and Non-tender PLAN: Keflex ordered RTO Friday07/10/18 for wound check I have reviewed and updated past medical and surgical history, medications and allergies. Elsie Nunn MD DISCHARGE SUMMARY Observed: 06/26/2018 Status: F Source: [place] 8:52 AM [facility] REPOSITORY [facility] Medical Records Department [address] [place] [address] Discharge Summary 06/26/18 0847 MR#: [id number] Acct: [id number] Name: LIZZYGIDEON Morales Rep #: [id number] : 1995 22 From: Ginny Wiseman CNM PCP: Care Physician, No Primary Status: ADM IN Y [facility] Discharge Date and Diagnosis - Problem List Patient Problems: Active and Suspected Problems PROM with onset of labor within 24 hours of rupture (Acute) Date of Admission: 06/22/18 Date of Discharge: 06/26/18 - Primary Discharge Diagnosis Active and Suspected Problems PROM with onset of labor within 24 hours of rupture (Acute) Hospital Course and Treatment Operations: - - Section Summary of Care Provided: The patient is a 22 year old F [] Patient Problems: Active and Suspected Problems PROM with onset of labor within 24 hours of rupture (Acute) - Physical Exam General: Alert, Oriented x3, Cooperative HEENT: Atraumatic, Normocephalic Lungs: Clear to auscultation, Normal air movement, No rhonchi, No wheeze Cardiovascular: Regular rate, Regular Rhythm, No murmurs Abdomen: Bowel Sounds Present, Soft, Non Tender, - - Fundus firm 2 below. Silver dressing intact and dry. No drainage. Extremities: No edema Psych/Mental Status: Normal Affect, Appropriate Vital Signs Temp Pulse Resp BP Pulse Ox 97.5 F L 70 18 112/66 99 06/26/18 02:00 06/26/18 02:00 06/26/18 02:00 06/26/18 02:00 06/25/18 22:00 Oxygen Delivery Method Room Air Weight: 215 lb Body Mass Index (BMI) 33.6 Intake and Output for Last 24 Hours Intake Total 1570 / 1570 Output Total 1850 / 1850 Balance -280 / -280 Microbiology Past 72 Hours 06/23/18 20:40 Influenza Types A,B Direct FA (VERONICA) - Final Mucosa - Nasopharyngeal Discharge Diet: No Restrictions Discharge Activity: May not drive while taking narcotic pain medications., May Shower May resume sexual activity in: 4-6 weeks Weight Bearing Status: Full weight bearing Call your doctor if your incision/area has: Continuous Slow Oozing, Sudden Increased Bleeding, Increased Pain/ Swelling, Increased Redness, Foul Smelling Discharge Call your doctor if you observe: Fever of 101 or Higher, Coldness, Increased Pain, Change in Color, Inability to urinate, Inability to have a bowel movement, Using more than one pad per hour, Shortness of breath, Chest pain, Increased palpitations (irregular heartbeat), Calf discomfort, Uncontrolled pain Suture Line Care: Avoid Pulling/Pushing Change Dressing in (Days):: 4 Cleanse incision/area with: Keep Dressing Clean AND Dry Home Medications: Medications to take at Discharge Vit No.130/Iron/FA [ Vitamins] 1 each PO DAILY 03/15/18 Primary Care Physician: Care Physician,No Primary [Primary Care Provider] - Please Follow Up With: Elsie Nunn MD Patient Instructions: After a , Discharge Instructions for Section (), at Home Disposition: Home Patient Condition:: Good Medical Necessity - Tobacco Use Smoking Status: Former smoker Meaningful Use Info Meaningful Use Diagnoses (Choose all that apply): None applicable 06/26/1852 <Electronically signed by Ginny Wiseman CNM> Date Ginny Wiseman CNM Cosigner Signature (if applicable): Date CC: RICH Wiseman; No Primary Care Physician Signed DISCHARGE INSTRUCTION Observed: 06/26/2018 Status: F Source: [place] 8:45 AM [facility] REPOSITORY [facility] Medical Records Department [address] [place] [address] Instructions for Home/Discharge Instructions 06/26/1842 MR#: [id number] Acct: [id number] Name: GIDEON BALL Rep #: [id number] : 1995 22 From: Ginny Wiseman CNM PCP: Care Physician, No Primary Status: ADM IN Discharge Diet: No Restrictions Discharge Activity: May not drive while taking narcotic pain medications., May Shower May resume sexual activity in: 4-6 weeks Weight Bearing Status: Full weight bearing Lifting Restrictions: 20 pounds Call your doctor if your incision/area has: Continuous Slow Oozing, Sudden Increased Bleeding, Increased Pain/ Swelling, Increased Redness, Foul Smelling Discharge Call your doctor if you observe: Fever of 101 or Higher, Coldness, Increased Pain, Change in Color, Inability to urinate, Inability to have a bowel movement, Using more than one pad per hour, Shortness of breath, Chest pain, Increased palpitations (irregular heartbeat), Calf discomfort, Uncontrolled pain Suture Line Care: Avoid Pulling/Pushing Change Dressing in (Days):: 4 Cleanse incision/area with: Keep Dressing Clean AND Dry Additional Instructions: If you experience any of the following, contact your healthcare provider. * Bleeding that soaks a pad every hour for 2 hours * Fever 100.4 or higher * Unrelieved incision or abdominal pain * Swelling, redness, discharge or bleeding from your incision or episiotomy site * Your incision begins to separate * Problems urinating (including inability to urinate or burning while urinating). * Visual changes * Severe headache * Flu-like symptoms * Pain or redness in one of both of your breasts * Pain, warmth, tenderness or swelling in your legs, especially the calf area * Frequent nausea and vomiting * Symptoms of depression or anxiety If you experience any of the following, call 911 or go to the nearest Emergency Room. * Chest pain * Problems breathing * Seizure activity * Partial or complete paralysis of a body part, slurred speech, weakness or drooping of the face, or a sudden inability to walk or hold your balance Allergies/Adverse Reactions: Allergies No Known Allergies Allergy (Verified 06/21/18 18:53) Medications to take at Discharge Vit No.130/Iron/FA [ Vitamins] 1 each PO DAILY 03/15/18 Follow-Up: Call to make an appointment with your doctor for an incision check in 1-2 weeks. You will also need a 6 week post- follow up appointment. Test results from this visit will be discussed in further detail at your follow-up appointment, if applicable. Please Follow Up With: Elsie Nunn MD Primary Care Physician: Care Physician,No Primary [Primary Care Provider] - 06/26/18 0845 <Electronically signed by Ginny Wiseman CNM> Date Ginny Wiseman CNM CC: No Primary Care Physician PROGRESS Observed: 06/24/2018 Status: COMPLETED Source: [place] 2:16 PM [facility] REPOSITORY O ID: [id number] Author: Shantel Wilburn LPN Service: (none) Author Type: (none) Type: Progress Notes Filed: 06/24/2018 2:18 PM Note Text: Pt delivered via C/S at [facility] on 06/23/[address] Archuleta and EZRA. See OB Outcome note. Shantel Adelso HENRY CBC-COMPLETE BLOOD CNT Collected: 06/24/2018 Status: F Source: [place] NO DIFF 6:00 AM [facility] REPOSITORY Order Comment: Comments: Day #1 Reason for Laboratory Test TYPE CODE TESTS RESULT OUT OF RANGE REFERENCE UNITS LAB L100.1000 4.4-11.0 K/mm3 High WBC 11.7 LAB L100.1200 4.2-5.4 M/mm3 Low RBC 3.24 LAB L100.1300 12.0-15.0 g/dl Low HGB 8.4 LAB L100.1400 37-47 % Low HCT 26.6 LAB L100.1500 81-99 fL Normal MCV 82.1 LAB L100.1600 27.0-32.0 pg Low MCH 25.9 LAB L100.1700 32-36 g/gl Low MCHC 31.6 LAB L100.1810 11.6-14.6 % Normal RDW CV 14.1 LAB L100.1820 35.1-43.9 fl Normal RDW SD 40.9 LAB L100.1900 150-450 K/mm3 Normal PLT 157 LAB L100.2000 6.2-12.0 fl High MPV 12.5 Performed By: #### L100.0500 #### [facility] [place], [address] HOSP Observed: 06/24/2018 Status: COMPLETED Source: [place] 12:00 AM [facility] REPOSITORY Patient Update (WOOB) GIDEON BALL ([id number]) 1995 F [facility] Date Time Provider Department 06/24/18 NEELSIE KIMBROUGH During your visit today, we recorded the following information about you: Shantel Adelso HENRY 06/24/2018 2:18 PM Signed Pt delivered via C/S at [facility] on 06/23/[address] Archuleta and EZRA. See OB Outcome note. Shantel Adelso HENRY Allergies As of Date: 06/24/2018 Noted Allergy Reaction environmental [Other] 12/23/2006 NICKEL 05/13/2017 2 - Rash Date Reviewed: 06/22/2018 Reviewed by: Ankit RandolphAshley Allison - Fully Assessed Prescriptions as of 06/24/2018 Sig: RANITIDINE 150 MG TABLET TAKE 1 TABLET BY MOUTH TWICE * BREAST PUMP As directed PROMETHAZINE 25 MG TAB (PHENE* Take 25 mg by mouth every 6 h* ACETAMINOPHEN 325 MG TABLET Take 500 mg by mouth every 6 * CYCLOBENZAPRINE 5 MG TABLET Take 1 tablet by mouth three * VITAMIN,CALCIUM,MINE* Take 1 tablet by mouth. Problem List As Of Date 06/24/2018 Noted Resolved Closed fracture of one or more phalanges of makayla*INVALID FOR*07/22/2012 Irritated//Inflamed Seborrheic Keratosis [L82.0]INVALID FOR* Viral warts, unspecified [B07.9] INVALID FOR*07/22/2012 Melanocytic nevus of L upper extremity: L shoul*INVALID FOR* Acne [L70.9] INVALID FOR* Left-sided weakness [R53.1] INVALID FOR* Unplanned [Z34.90] INVALID FOR* More... Nausea/vomiting in [O21.9] INVALID FOR* More... History of alcohol abuse [Z87.898] INVALID FOR* More... Maternal tobacco use in first trimester [O99.33*INVALID FOR* More... Family history of congenital heart defect [Z82.*INVALID FOR* More... Patient requested diagnostic testing [Z01.89] INVALID FOR* More... Urine culture positive [R82.79] INVALID FOR* More... Rubella non-immune status, antepartum [O99.89, *INVALID FOR* More... Positive GBS test [B95.1] INVALID FOR* Encounter Status:Closed by SHANTEL WILBURN LPN on 06/24/18 Observed: 06/23/2018 Status: F Source: [place] INFLUENZA A+B (RAPID 8:40 PM [facility]) REPOSITORY FLU A/B Rapid Negative test results should be confirmed by culture. Order Rapid Viral Culture for Influenzae A+B ([id number]) if clinically indicated. Influenza Ag, Direct Presumptive NEGATIVE for Influenza A/B Antigen (See Note) Performed By: #### M101.0101 #### [facility] [place], [address] CBC W/DIFF, AUTOMATED Collected: 06/23/2018 Status: F Source: [place] 12:20 PM [facility] REPOSITORY TYPE CODE TESTS RESULT OUT OF RANGE REFERENCE UNITS LAB L100.1000 4.4-11.0 K/mm3 High WBC 14.9 LAB L100.1200 4.2-5.4 M/mm3 Low RBC 4.07 LAB L100.1300 12.0-15.0 g/dl Low HGB 10.5 LAB L100.1400 37-47 % Low HCT 32.8 LAB L100.1500 81-99 fL Low MCV 80.6 LAB L100.1600 27.0-32.0 pg Low MCH 25.8 LAB L100.1700 32-36 g/gl Normal MCHC 32.0 LAB L100.1810 11.6-14.6 % Normal RDW CV 14.1 LAB L100.1820 35.1-43.9 fl Normal RDW SD 41.1 LAB L100.1900 150-450 K/mm3 Normal PLT 193 LAB L100.2000 6.2-12.0 fl High MPV 12.2 LAB L100.2100 47-70 % High NEUT% 81.4 LAB L100.2200 19-41 % Low LY% 7.3 LAB L100.2300 0-10 % High MONO% 11.0 LAB L100.2400 0-5 % Normal EO% 0.1 LAB L100.2500 0-1 % Normal BASO% 0.1 LAB L100.2550 0.0-0.9 % Normal IM GRAN % 0.100 Result Comment: IG% - Immature Granulocytes (promyelocytes, myelocytes and metamyelocytes) > 1% indicates that a LEFT SHIFT is Present. LAB L100.2620 2.0-7.7 X10 3/uL High Absolute Neut 12.1 LAB L100.2720 0.83-4.51 X10 3/ul Normal Absolute Lymph 1.09 LAB L100.4500 Normal SMEAR COMMENT SCANNED Performed By: #### L100.0100 #### [facility] [address] [place], [address] HISTORY AND PHYSICAL Observed: 06/23/2018 Status: F Source: [place] EXAM 6:36 AM [facility] REPOSITORY [facility] Medical Records Department [address] [place] [address] History and Physical 06/23/18 0625 MR#: [id number] Acct: [id number] Name: GIDEON BALL Rep #: [id number] : 1995 22 From: Ankit Allison CNM PCP: Care Physician, No Primary Status: ADM IN Y Location: [place] [id number] - Problem List (1) PROM with onset of labor within 24 hours of rupture Status: Acute Qualifiers: PROM gestational age: full term Qualified Code(s): O42.02 - Full-term premature rupture of membranes, onset of labor within 24 hours of rupture History Date of Admission: 06/22/18 Final CHUCK: 06/22/18 Final CHUCK Source: US <20 weeks Gestational age: 40 Weeks and 1 Days History of this : This is a 22 year-old, G [], P [], at 40 weeks gestational age. Allergies No Known Allergies Allergy (Verified 06/21/18 18:53) Home Medications: Home Medications Vit No.130/Iron/FA [ Vitamins] 1 each PO DAILY 03/15/18 Smoking Status: Former smoker Alcohol: None Substance Use Type: Alcohol Number of Fetus(es): 1 Heart Tracing: Baseline 125, moderate variability, + accels, no decels TOCO Analysis: Ctx q 2-6 minutes, palpate strong History Past Pregnancies: Past Pregnancies Delivery Name GA/Weeks Outcome Route WeiInfant GeLabor LenAnesthesiDelivery Provider FOB Date [facility] Location Labs: O+ Abs Neg, H/H = 14.6/44.7 -->11.9/36.4, Rubella NON-IMM, GBS POSITIVE, GC/CT = Neg/Neg, 1 hour GCT = 101, Urine Culture = Negative, Syphilis = Negative, HepBsAg = Negative, Urine Tox = Negative Expected Delivery Method: Spontaneous Vaginal Describe any other labor AND delivery plans:: Epidural Number of Visits: 14 Review of Systems Constitutional: Denies: Chills, Fever, Weight Change HEENT: Denies: Head Aches, Sinus Congestion, Sinus Drainage Cardiovascular: Denies: Chest Pain, Palpitations Respiratory: Denies: Cough, Shortness of breath at rest, Sputum production Gastrointestinal: Denies: Abdominal Pain, Nausea, Vomiting Genitourinary: Denies: Dysuria Gynecological: Reports: Vaginal discharge - Scant clear fluid - +ROM plus Musculoskeletal: Denies: Joint Pain, Joint Tenderness Skin: Denies: Rash, Wounds Neurological: Denies: Numbness, Tingling, Focal weakness Psychiatric: Denies: Anxiety, Depression, Homicidal Ideations, Suicidal Ideations Hematologic/ Lymphatic: Denies: Easy Bruising, Easy Bleeding Physical Exam Vitals: See nursing notes for vital signs General: Alert, Oriented x3, No apparent distress HEENT: Atraumatic, Normocephalic. Negative for: Thyromegaly, Lymphadenopathy Cardiovascular: Regular rate, Regular Rhythm Lungs: Normal air movement Abdomen: Soft, Non Tender, Non-Distended Neurological: Deep Tendon Reflexes 2+/4 and Symmetrical, Neuro grossly intact CLINICAL PHARMACY COORDINATOR: Normal external genitalia. Negative for: Vulvar lesions Estimated gestational size: Appropriate for gestational size Presentation: Cephalic Cervix Dilation (cm): 1 - Exam on admission by RN Station: -2 Effacement (%): 85 Assessment/Plan All Active Problems PROM with onset of labor within 24 hours of rupture (Acute) This is a 22 year-old, G [1], P [0], at 40 weeks gestational age, PROM, Category I FHT. 1) Admit Patient, Dr. Platt OB back-up notified of admission 2) Start IV, draw CBC and T+S, start PCN abx for GBS prophylaxis 3) Nubain 10mg IV push x 1 now 4) Epidural on demand after 3cm 5) Encourage position changes and PO hydration 6) Reassess for cervical change PRN Ankit Allison APRN-RICH 06/23/18 0336 <Electronically signed by Ankit Allison CNM> Date Ankit Allison SANDROJoanna Cosigner Signature: Date (if applicable) CC: RICH Allison; No Primary Care Physician Signed CBC-COMPLETE BLOOD CNT Collected: 06/22/2018 Status: F Source: [place] NO DIFF 11:00 PM [facility] REPOSITORY TYPE CODE TESTS RESULT OUT OF RANGE REFERENCE UNITS LAB L100.1000 4.4-11.0 K/mm3 High WBC 14.9 LAB L100.1200 4.2-5.4 M/mm3 Low RBC 4.17 LAB L100.1300 12.0-15.0 g/dl Low HGB 10.8 LAB L100.1400 37-47 % Low HCT 33.5 LAB L100.1500 81-99 fL Low MCV 80.3 LAB L100.1600 27.0-32.0 pg Low MCH 25.9 LAB L100.1700 32-36 g/gl Normal MCHC 32.2 LAB L100.1810 11.6-14.6 % Normal RDW CV 13.8 LAB L100.1820 35.1-43.9 fl Normal RDW SD 40.6 LAB L100.1900 150-450 K/mm3 Normal PLT 215 LAB L100.2000 6.2-12.0 fl High MPV 12.7 Performed By: #### L100.0500 #### [facility] [address] [place], [address] TYPE AND SCREEN Collected: 06/22/2018 Status: F Source: [place] 11:00 PM [facility] REPOSITORY Order Comment: Reason for Type AND Screen/Red Cells: TYPE CODE TESTS RESULT OUT OF RANGE REFERENCE UNITS LAB B10.0800 O Normal BLOOD TYPE GEL POSITIVE LAB B100.4000 Normal Antibody NEGATIVE Screen Performed By: #### B101.7450 #### [facility] [address] [facility] [place], [address] (ROM) RUPTURE OF Collected: 06/22/2018 Status: F Source: [facility] 9:35 PM [facility] REPOSITORY TYPE CODE TESTS RESULT OUT OF REFERENCE UNITS RANGE LAB L205.1310 Negative High ROM POSITIVE Result Comment: Amniotic fluid present indicates rupture of Membranes. RESULTS CALLED TO [facility] 06/22/18 2219 Lorraine Mahoney. REPORT READ BACK BY SAME . Performed By: #### L205.1000 #### [facility] [address] [facility] [place], [address] (ROM) RUPTURE OF Collected: 06/21/2018 Status: F Source: [facility] 6:45 PM [facility] REPOSITORY TYPE CODE TESTS RESULT OUT OF RANGE REFERENCE UNITS LAB L205.1310 Negative Normal ROM Negative Result Comment: Amniotic fluid not present indicates No Rupture of Membranes at time of specimen collection. Performed By: #### L205.1000 #### [facility] [address] [place] [address]. [place], [address] GC/CHLAMYDIA AMPLIF Collected: 05/28/2018 Status: F Source: [place] 12:05 PM [facility] REPOSITORY TYPE CODE TESTS RESULT OUT OF REFERENCE UNITS RANGE LAB GCCTSR GC/Chlam Amp Vaginal Source LAB GCAMPL GC Negative Amplification for Neisseria gonorrhoeae by amplification. LAB CLAMPL Chlamydia Negative Amplif for Chlamydia trachomatis by amplification. Performed By: #### GCCT #### [facility] [place] [address] GROUP B STREP PCR Collected: 05/28/2018 Status: F Source: [place] 12:05 PM [facility] REPOSITORY TYPE CODE TESTS RESULT OUT OF RANGE REFERENCE UNITS LAB GBPCRT Positive for Abnormal Group B Alert GROUP B Streptococcus by STREP PCR PCR. If susceptibility testing is needed and was not requested with initial test order, call lab ([phone]) within 5 days to initiate workup. Performed By: #### GBPCR #### [facility] [place] [id number] PROGRESS Observed: 05/21/2018 Status: COMPLETED Source: [place] 11:10 [facility] REPOSITORY HNO ID: [id number] Author: Jacklyn Mason Service: (none) Author Type: Hull And De[employer] Remover Type: Progress Notes Filed: 05/21/2018 12:08 PM Note Text: Patient identified by name and date of . Gideon Ball presents today for a vaccination of Tdap. Patient denies an allergy to latex: yes Patient denies a severe (life-threatening) allergy to a previous dose of Tdap, DTP, DTaP, DT or Td vaccine. Yes Patient denies history of epilepsy or neurological problems: Yes Patient is afebrile and denies being moderately or severely ill: Yes Patient denies history of Guillain-Tuc[place] Syndrome (a severe paralytic illness): Yes Tdap Adacel injection was given without incident. See immunizations for details of immunizations administered today. VIS sheet provided: Yes Provider Ankit Allison CNM was present in office at time of injection. Jacklyn Mason MA PROGRESS Observed: 04/15/2018 Status: COMPLETED Source: [place] 9:49 AM [facility] REPOSITORY HNO ID: [id number] Author: Antonella Leary Ma Service: (none) Author Type: (none) Type: Progress Notes Filed: 04/15/2018 12:23 PM Note Text: 22 year old female here for INACTIVATED INFLUENZA VACCINE. 2371-7872 Season Patient is identified by name and date of : Yes [] CONTRAINDICATIONS color enhanced section Age less than 6 months? No Allergy to eggs, chicken, chicken feathers, or chicken dander? No Allergy to thimerosal (a preservative) or formaldehyde, gelatin? No History of severe reaction to any vaccine component or a previous dose of influenza vaccination? No History of Guillain-Tucson Syndrome within 6 weeks after a previous influenza vaccine? No Patient is not moderately or severely ill? No Current temperature greater or equal to 100.4F? No History of Bone Marrow Transplant prior 6 months or solid organ transplant in the past 3 months ? No History of fainting after a prior injection or medical procedure? No- ? If patient has fainted in the past, the CDC recommends sitting or lying down for 15 minutes after the vaccination. [] VERIFICATION color enhanced section Was the answer Yes for any of the above contraindications? No contraindications present. Acceptable to proceed with vaccine. Patient/guardian agrees the above answers are true to the best of their knowledge? Yes Flu vaccine information sheet given? Yes See immunization activity in [facility] for details of immunizations adminstered today. Patient age: [age] year old For The 3513-8053 Flu Season 6-35 months old: Fluzone 0.25 ml - IM (Preservative Free) 3 years of age: Fluzone 0.5 ml - IM (Preservative Free) 3 years and older: Fluzone 0.5 ml- IM-(with Preservatives) 65+ years old: 2-49 years old Fluzone High-Dose 0.5 ml - IM (Preservative Free) FLUMIST- intranasal REMEMBER: If patient is less than 9 years of age and this is the first vaccine of Influenza to be received in any flu season, they should receive a second dose in one months time. EMERGENCY DEPARTMENT Observed: 03/23/2018 Status: F Source: [place] SUMMARY 8:[address] [facility] Medical Records Department [address] [place] [address] Emergency Department Summary 03/15/18 1612 MR#: [id number] Acct: [id number] Name: GIDEON BALL Rep #: [id number] : 1995 22 From: Regis Khan DO PCP: Care Physician, No Primary Status: DEP ER - ER Visit Summary Date of Service: 03/15/18 Chief Complaint: Shortness of breath cough and fever History of Present Illness: The patient is a 22 F who is 26 weeks . She states that beginning yesterday she has had rhinorrhea cough without sputum production. She notes nausea tributes to coughing. She states her temperature has been 99.9 at its maximum. She sees the women's group at [facility]. Physical Examination: Afebrile vital signs are stable Gen: Well-nourished well-developed Head: Normocephalic atraumatic Eyes: Perrl EOMI ENT: TMs clear rhinorrhea and turbinate edema moist mucous membranes Neck: Supple no lymphadenopathy no JVD nontender CVS: Regular rate rhythm no murmurs normal S1-S2 Respiratory: No distress clear to auscultation bilaterally chest nontender Abdomen: Soft nontender nondistended normal bowel sounds no masses Back: Nontender Extremity: Nontender no edema Skin: Normal color no rash Neuro: alert orientated 3 CN II-XII intact normal strength sensation reflexes gait cerebellar Psych: Normal affect normal mood Test Results: Chest x-ray negative. Emergency Department Course and Treatment: Received IV fluids. Tylenol and Zofran. Urinalysis shows ketones. No white cells. It is contaminated with some epithelial cells. Patient be discharged home with supportive care. I will write for some Phenergan. Impression: 1. Sinusitis 2. Third trimester 3. Dehydration This note was generated with [employer] dictation software. It may contain incorrect words, spelling, and punctuation that were not noted in review of the chart prior to signing ED Disposition - Plan for ED Patient: Disposition: Home or Assisted Living Chief Complaint: Shortness of Breath Instructions: ED Sinusitis No Abx Prescriptions: proMETHazine tablet [Phenergan] 25 mg PO Q6H PRN PRN #10 tab PRN Reason: Nausea Referrals: Ginny Wiseman CNM [Certified Nurse Contact Lens Flashing Puncher] - As Needed What to do if you have Problems For any increased pain, shortness of breath, bleeding, nausea or vomiting, chest pain, or any unexpected problems, contact your Primary Care Provider. Call [facility] ([phone]) or report to the closest Emergency Room. Call 911 if necessary. 03/23/18 0804 <Electronically signed by Regis Khan DO> Date Regis Khan DO Cosigner Signature (If Indicated): Date CC: No Primary Care Physician CBC AND DIFFERENTIAL Collected: 03/18/2018 Status: F Source: [place] 10:20 AM [facility] [place] REPOSITORY TYPE CODE TESTS RESULT OUT OF REFERENCE UNITS RANGE LAB WBC 3.70-11.00 k/uL WBC 7.68 LAB RBC 3.90-5.20 m/uL RBC 3.92 LAB HGB 11.5-15.5 g/dL Hemoglobin 11.9 LAB HCT 36.0-46.0 % Hematocrit 36.4 LAB MCV 80.0-100.0 fL MCV 92.9 LAB MCH 26.0-34.0 pG MCH 30.4 LAB MCHC 30.5-36.0 g/dL MCHC 32.7 LAB RDWCV 11.5-15.0 % RDW-CV 13.2 LAB PLTCT 150-400 k/uL Platelet Count 181 LAB MPV 9.0-12.7 fL MPV High 12.9 LAB ANEUT % Neut% 72.3 LAB AANEUT 1.45-7.50 k/uL Abs Neut 5.55 LAB ALYMP % Lymph% 15.8 LAB AALYMP 1.00-4.00 k/uL Abs Lymph 1.21 LAB AMONO % Bureau% 7.8 LAB AAMONO <0.87 k/uL Abs Bureau 0.60 LAB AEOS % Eosin% 4.0 LAB AAEOS <0.46 k/uL Abs Eosin 0.31 LAB ABASO % Baso% 0.1 LAB AABASO <0.11 k/uL Abs Baso <0.03 LAB AUNRBC 0 /100 WBC NRBCs 0.0 LAB ABNRBC <0.01 k/uL Absolute nRBC <0.01 LAB DTYP DTYPE Auto Diff Performed By: #### CBCDIF #### [facility] [address] [place], [place] [address] 50G, 1HR GEST. Collected: 03/18/2018 Status: F Source: [place] GSCN 10:20 AM [facility] REPOSITORY TYPE CODE TESTS RESULT OUT OF REFERENCE UNITS RANGE LAB GLUP 74-134 mg/dL Glucose 101 Screen, Preg Result Comment: [place] [employer] and Gynec[employer] ([place]) guidelines state a gestational diabetes mellitus positive screen is made, in women not previously diagnosed with overt diabetes, when the 1 hr plasma glucose level is equal to or above 140 mg/dL. The [facility] Hvac Design Mechanical Engineer and [facility] [place] recommends a 135 mg/dL cutoff. Performed By: #### GLTGST #### [facility] [address] [place], [place] [address] Observed: 03/18/2018 Status: F Source: [place] URINE CULTURE 9:30 AM [facility] [place] REPOSITORY Sp. Request/Comment: - Specimen received in preservative Culture Result - <10,000 CFU/ml Lactose negative gram negative bacilli --> ABNORMAL ALERT Insignificant colony count. No further workup. --> ABNORMAL ALERT <10,000 CFU/ml Normal urogenital teresa Performed By: #### URCUL #### [facility] [address] [place], [place] [address] URINALYSIS, COMPLETE Collected: 03/15/2018 Status: F Source: [place] 4:34 PM [facility] REPOSITORY Order Comment: Order Date: 03/15/18 CRITICAL VALUE VERIFIED. CALLED TO LEDY 03/15/18 1050 Patricia Swanson. RESULTS READ BACK BY LEDY . How was Urine Obtained? CLEAN CATCH TYPE CODE TESTS RESULT OUT OF RANGE REFERENCE UNITS LAB L400.3000 Yellow COLOR Normal Yellow LAB L400.3050 Clear Normal CLARITY Clear LAB L400.3200 Normal mg/dl Normal GLUCOSE, UR Normal LAB L400.3300 Negative mg/dL High BILIRUBIN URINE 1 Result Comment: COLOR OF URINE MAY AFFECT DIPSTICK RESULTS. LAB L400.3400 Negative mg/dl High KETONE UR 150 Result Comment: CRITICAL VALUE *H LAB L400.3465 1.002-1.030 Normal SP.GR. DIPSTX 1.010 LAB L400.3550 5.0 - 8.0 pH Normal UR 7.0 LAB L400.3600 Negative mg/dl High 30 PROT DIPSTX LAB L400.3700 Normal mg/dl High 4 UROBILI LAB L400.3750 Negative Normal NITRITE UR Negative LAB L400.3780 Negative /ul Normal OCCULT Negative BLOOD-UR LAB L400.3800 Negative /ul High 25 LEUK ESTERASE LAB L400.4050 0-5 /hpf Normal WBC 0-5 SEEN LAB L400.4100 0-5 /hpf 0 Normal RBC-UA SEEN LAB L400.4150 5-10 /hpf Normal SQUAM EPI 10-25 SEEN LAB L400.4300 None Seen /hpf 2+ Normal BACTERIA LAB L400.4350 <or=2+ /hpf 3+ Normal MUCUS, URINE Performed By: #### L400.0001 #### [facility] [address] [facility] [place], [address] CHEST PA AND LATERAL Observed: 03/15/2018 Status: F Source: [place] 3:32 PM [facility] REPOSITORY [facility] Imaging Services [address] [place] [address] Chest PA and Lateral MR#: [id number] Acct: [id number] Name: GIDEON BALL Morales Rep #: [id number] : 1995 F 22 From: Oliver Verma MD PCP: Ernst Gottlieb MD Status: PRE ER Study: Chest PA and Lateral Date of Exam: 03/15/18 Exam# [id number] Ordering Dr: Regis Khan DO STUDY: X-RAY CHEST REASON FOR EXAM: Female, 22 years old. Cough and fever. TECHNIQUE: Frontal and lateral views of the chest. COMPARISON: None. FINDINGS: The lungs are clear and expanded. There is no demonstrated pleural abnormality. Normal size heart. Normal mediastinum and alphonse. Normal visualized pulmonary arteries. Normal visualized aortic arch and descending thoracic aorta. Normal visualized thoracic spine. Normal visualized ribs, clavicles, and shoulders. There is no demonstrated abnormality of the visualized soft tissue structures of the upper abdomen. RAD/Chest PA and Lateral IMPRESSION: Normal x-ray examination of the chest. Electronically Signed: Oliver Verma MD at 16:04 EDT , Service support , CC: Regis Khan DO; Ernst Gottlieb MD Publications Production Supervisor: Signed PROGRESS Observed: 02/16/2018 Status: COMPLETED Source: [place] 10:38 AM [facility] REPOSITORY HNO ID: [id number] Author: Roosevelt García Service: (none) Author Type: Physician Type: Progress Notes Filed: 02/16/2018 10:41 AM Note Text: A kirk intrauterine has been noted. The heart rate is regular without dysrhythmias and falls within the normal range for gestational age. Estimated Date of Delivery: 06/22/18 EGA = 22w0d The heart, profile, nose and lip have been visualized and appear normal There is no evidence of hydrops. The amniotic fluid volume is in the normal range. The placenta is fundal. The limitations of ultrasound in detecting malformations and chromosomal anomalies has been addressed. RECOMMENDATIONS: - Follow up ultrasound as clinically indicated PROGRESS Observed: 01/27/2018 Status: COMPLETED Source: [place] 9:37 AM [facility] REPOSITORY HNO ID: [id number] Author: Roosevelt García Service: (none) Author Type: Physician Type: Progress Notes Filed: 01/27/2018 9:39 AM Note Text: A kirk? fetus in utero with symmetric measurements Adequate growth (AGA). Estimated Date of Delivery: 06/22/18 EGA = 18w3d The heart and facial profile are not visualized The rest of the anatomy appears normal. There are no evident malformations and /or effusions. No genetic markers are noted. The amniotic fluid volume is within normal limits. The sensitivity of ultrasound in the detection of malformations overall is approximately 35%. RECOMMENDATIONS: - Follow up ultrasound after 2 weeks to visualize the face, profile, and heart SEQUENT SCRN SECOND Collected: 01/20/2018 Status: F Source: [facility] PATIENTS ONLY 10:36 AM [facility] [place] REPOSITORY TYPE CODE TESTS RESULT OUT OF REFERENCE UNITS RANGE LAB SE1PAP MoM 0.91 SE1 RIKKI A LAB SE2AFP MoM 0.97 SE2 AFP LAB SE2HCG MoM 0.67 SE2 hCG LAB SE2UE3 MoM 1.81 SE2 Unconj uE3 LAB SE2INH MoM 1.11 SE2 Dimrc Inhibin A LAB SE1HCG MoM 0.85 SE1 hCG LAB SE2INT Screen Negative SE2 Interp Screen Negative LAB SE2SDN SE2 Scrn Rsk <1:31717 Dn Synd LAB SE2ADN SE2 Age Rsk 1:1100 Dn Snyd LAB SE2STS SE2 Scr Rsk <1:89790 Trsmy 13 LAB SE2STR SE2 Scr Rsk <1:60830 Trsmy18 LAB SE2SON SE2 Scr Rsk 1:8100 ONTD LAB SE2RS View Seq Scrn results in Second Trim Scanned Documents link when available. LAB SEQLRV SEQ Staff Reviewed by Review Carrie Parker, Ph.D. Performed By: #### SEQL2 #### [facility] [address] [place], [place] [address] PROGRESS Observed: 12/08/2017 Status: COMPLETED Source: [place] 9:55 AM [facility] [place] REPOSITORY HNO ID: [id number] Author: Roosevelt García Service: (none) Author Type: Physician Type: Progress Notes Filed: 12/08/2017 9:56 AM Note Text: A single intrauterine gestational sac is noted with a regular outline. There is no decidual hemorrhage. The yolk sac is visualized and shows normal shape and echogenicity. A living single fetus is noted. The heart rate is within normal range. The CRL corresponds to the gestational age. Estimated Date of Delivery: 06/22/18 EGA = 12w0d Negative NT screen for Trisomy 21. The sensitivity of nuchal translucency measurement for Trisomy 21 is ~60%. The anatomy appears normal in the areas visualized. RECOMMENDATIONS: - The patient requested the sequential screening. The test has been ordered - Ultrasound examination at 18 to 20 weeks SEQUENT SCRN FIRST Collected: 12/08/2017 Status: F Source: [place] [facility] PATIENTS ONLY 9:54 AM [facility] REPOSITORY TYPE CODE TESTS RESULT OUT OF REFERENCE UNITS RANGE LAB SE1PAP MoM 0.95 SE1 RIKKI A LAB SE1HCG MoM 0.87 SE1 hCG LAB SE1INT Final result pending second Final trimester SE1 result pending sample Interp second trimester sample LAB SE1SDN SE1 Scrn <1:95389 Rsk Dn Synd LAB SE1ADN 1:830 SE1 Age Rsk Dn Synd LAB SE1STR SE1 Scr <1:77011 Rsk Trsmy18 LAB SE1ATR SE1 Age 1:2500 Rsk Trsmy18 LAB SE1RS View Seq Scrn results in First Trim Scanned Documents link when available. LAB SEQLRV SEQ Staff Reviewed by Review Tc Cloud MD, PhD ([id number]) Performed By: #### SEQL1 #### [facility] [address] [place], [place] [address] ED DOC Observed: 12/06/2017 Status: UNK Source: [facility] 1:02 AM [employer] This is a preliminary report only, as the practitioner review and authentication has not occurred. ED DOC Observed: 12/06/2017 Status: UNK Source: [facility] 1:02 AM [employer] REPOSITORY PHYSICIAN ASSESSMENT RECORDS : FlexChartData Event Time: 12/05/2017 23:35 Status: Signed [facility] Gdieon Ball [[id number]] Mid-Level Chart (V2b) 1995 Chart created at 12/05/2017 23:24 by Jj Goldstein Chart closed at 12/06/2017 00:33 Entry in Emergency Department at 12/05/2017 21:41, departure at 12/06/2017 01:02 Patient Name: Gideon Ball Record Number: [id number] Date: 12/05/2017 23:24 Entered Department at: 12/05/2017 21:41 Patient Seen at: 12/05/2017 23:17 Historian: Patient PCP: *None,. Chief Complaint:Epigastric pain and vomiting x4 days. Unable to keep anything down. 11 weeks . Nursing triage/initial assessment reviewed and confirmed and Initial Vital Signs reviewed. Temperature: 98.7 F (37.1 C). Pulse: 69. Respiratory Rate: 18. Blood-pressure: 133/68. Oxygen Saturation: 99%. History of Present Illness: Patients a 22-year-old female who presents today with some epigastric discomfort. Shes had this ongoing now for about a week and a half but worsening today. Shes had a lot of vomiting anything down. No fever. She is approximately 11 weeks but has no lower abdominal pain and no vaginal bleeding. She is followed by a clinic in [facility] and the patient has had an [facility] PATIENT NAME: GIDEON BALL [facility] [address] MEDICAL REC #: [id number] [place] [address] EMERGENCY DEPARTMENT CHART EMERGENCY DEPARTMENT PHYSICIAN ultrasound there already confirming intrauterine . She otherwise has no other complaints. Her main concern was that shes not able to keep anything down today. HPI Elements: Onset: 1.5 Weeks ago Associated symptoms: see HPI. Review of Systems. Constitutional: negative for Fever Eyes: negative for Eye Pain Ear/Nose/Throat: negative for Sore Throat Cardio-Vascular: negative for Chest Pain Respiratory: negative for Hemoptysis GI: positive for Abd. Pain, Diarrhea, Nausea and Vomiting : negative for Hematuria Musculo-Skeletal: negative for Back Pain Neurological: negative for Headache Hem/Endo: negative for Bleeding Immunology: negative for Joint Pain Past History, Medications, Allergies, Social History and Family History reviewed in nurses note. Medications: Reviewed RN Note. VITAMIN B6 50MG TABLET - PO BID, vitamins DAILY, VERIFIED WITH PT 12/05/2017 Allergies: Reviewed RN Note No Known Allergies Social History: Reviewed RN Note. Family History: Reviewed RN Note Physical Examination: General: Alert; alert, nontoxic HEENT: Normal ENT inspection. Eyes: Lids Normal; . Oropharynx / Throat: Normal Pharynx. Neck: No Lymphadenopathy, No Meningismus and Supple Respiratory: No Resp Distress and Normal Breath Sounds Cardio-Vascular: No murmur, No rub and RRR Abdomen: Soft; mild discomfort noted in the epigastric region. No lower abdominal pain Back: No CVA tenderness, No Midline Tenderness and Non-tender Extremity: No edema Neurological: Alert, Oriented X3 and No Gross Weakness Skin: No rash, No [facility] PATIENT NAME: GIDEON BALL [facility] [address] MEDICAL REC #: [id number] [place] [address] EMERGENCY DEPARTMENT CHART EMERGENCY DEPARTMENT PHYSICIAN Petechiae, Warm and Dry Psychological: Mood/Affect Normal and Normal Memory/Judgment BMP, information as of 12/05/2017, 11:41 pm 136 --------+--------+--------andlt; 80 Anion Gap = 10 3.9 BUN/CREA: 18; CALCIUM TOTAL: 10.3 Mg/Dl LIPASE, information as of 12/05/2017, 11:41 pm LIPASE: 186 U/L CBC W/DIFF, information as of 12/05/2017, 11:41 pm 86.6 / 15.3 / 14.4* andgt;------andlt; 230 / 45.1 / N:73.9 BASO ABS: 0.10 K/Cu Mm; BASOPHIL %: 0.4 %; EOS ABS: 0.20 K/Cu Mm; EOSINOPHIL %: 1.5 %; IMMATR GRAN ABS: 0.00 K/Cu Mm; IMMATURE GRAN %: 0.3 %; LYMPH %: 17.5 %; LYMPH ABS: 2.50 K/Cu Mm; MCHC: 33.9 Gm/Dl; MONO ABS: 0.90 K/Cu Mm; MONOCYTE %: 6.4 %; MPV: 11.9; NEUTROPHIL ABS: 10.70 K/Cu Mm; NRBC: 0.0 %; RBC: 5.21 M/Cu Mm; RDW: 14.3 LIVER, information as of 12/05/2017, 11:18 pm A/G RATIO: 1.0; ALBUMIN: 4.3 Gm/Dl; ALK PHOS: 114 U/L; BILI DIRECT: 0.18 Mg/Dl; BILI TOTAL: 0.6 Mg/Dl; GLOBULIN: 4.4 Gm/Dl; SGOT (AST): 14 U/L; SGPT (ALT): 29 Iu/L; TP: 8.7 Gm/Dl Medical Decision Making Patients a 22-year-old female that presents today with some epigastric discomfort. She also had vomiting. She is approximately 11 weeks . She has no vaginal bleeding or any lower abdominal pain. The patient was medicated here with Phenergan and fluids and she is feeling better. Labs as detailed above. She is a 14,000 leukocytosis or a suspect that this is D margination as shes been vomiting throughout today. She is feeling better and tolerating by mouth fluids. Im going to start her on some Zantac as well. 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 [facility] PATIENT NAME: GIDEON BALL [facility] [address] [address] MEDICAL REC #: [id number] [place] [address] EMERGENCY DEPARTMENT CHART EMERGENCY DEPARTMENT PHYSICIAN Additional Information: Discussed Results, Diagnosis and Follow-Up with Patient. Prescription given (Phenergan, Zantac). Clinical Impression: 1. acute vomiting during 2. acute epigastric discomfort secondary to vomiting Disposition: Discharged *Home. Condition: Good Direct patient care supervision and electronic documentation review by Lawrence Pérez on 12/08/2017 09:07. : Discharge Report Event Time: 12/06/2017 00:34 ===DISCHARGE REPORT=== : FlexChartData Event Time: 12/05/2017 23:35 : Discharge Report Event Time: 12/06/2017 00:34 Status: Draft Reasons to Return to the ER: You must return to the ER for any new, worsening or changing symptoms, or if you feel more ill or sick in any way. This is the most important thing to remember. Follow-up: The care you received in the ER was given on an emergency basis only, and it is often not possible to completely treat or diagnose a problem in a single ER visit. You must see your follow-up doctor for a recheck within a week unless you receive instructions with a different timeframe for follow-up. Please follow all your discharge instructions. [facility] PATIENT NAME: GIDEON BALL [address] [facility] [address] MEDICAL REC #: [id number] [place] [address] EMERGENCY DEPARTMENT CHART EMERGENCY DEPARTMENT PHYSICIAN Medications: Unless the ER doctor tells you differently, you should take all your regular medications and any new medications prescribed today. Because it is not possible for the ER doctor to review all of your medication side effects or interactions, you must review possible side effects and interactions with your pharmacist when you get your prescriptions filled. EKG and Radiology Results: A cuff runner or radiologist will review any EKG or radiology results provided by the ER doctor. We will contact you if the results in the final EKG or radiology reports require a change in treatment. Culture Results: Cultures may have been ordered during your ER visit. We will contact you if the culture results require a change in treatment. Referrals: Most referrals to specialists come from the on-call list You should make your regular doctor aware of any referrals before you schedule the appointment so that they are aware and can make suggestions DIAGNOSIS: acute vomiting during , acute epigastric discomfort secondary to vomiting INSTRUCTIONS: if any new or worsening symptoms or fever please return for further evaluation. Most cases of nausea, vomiting or diarrhea are caused by viruses. This type of infection is usually called a gastroenteritis, or stomach flu, and can also cause fever, cramping, bloating and headaches. An antibiotic may be prescribed, but only if the doctor thinks a bacteria is causing your symptoms. The most [facility] PATIENT NAME: GIDEON BALL [address] [facility] [address] MEDICAL REC #: [id number] [place] [address] EMERGENCY DEPARTMENT CHART EMERGENCY DEPARTMENT PHYSICIAN common complication is dehydration but the major concern is that the nausea, vomiting or diarrhea may be early warning signs of more serious problems that cannot be discovered during the ER evaluation. While you are sick you should try and rest, drink plenty of fluids, and avoid alcohol, tobacco, greasy or fried foods, milk or dairy products, or other foods that worsen your nausea, vomiting or diarrhea. Bmvr-vqo-gawbcij medications for diarrhea (like Immodium, Pepto-Bismol or Kaopectate) are usually safe to use unless you see blood in your diarrhea. Ibuprofen (if you are not ) or acetaminophen may be used for aches, pains and fever. You should avoid aspirin unless you are taking this medication for another reason. You must use all of your regular medications plus all the medications that were given to you today. UNLESS THE ER DOCTOR GIVES YOU OTHER INSTRUCTIONS, YOU MUST SEE YOUR FOLLOW-UP DOCTOR WITHIN 2 TO 3 DAYS FOR RECHECK. YOU MUST RETURN TO THE ER RIGHT AWAY FOR ANY OF THE FOLLOWING:Increasing painChange in the location of the painNew or increasing fever or chillsNew or increasing difficulty urinatingNew or increasing abdominal swelling or bloating Blood appears in the stool, vomit or urineIncreasing nausea, vomiting or diarrheaSigns of dehydration (dry mouth, excessive thirst, decreased urination, increasing weakness or dizziness) Early appendix infection is always a possibility and you must return if the pain moves to the lower right side of your abdomen REFERRAL Your regular doctor(s) Please call the above number to schedule a follow-up appointment. at [facility] 2-3 days MEDICATIONS [facility] PATIENT NAME: GIDEON BALL [address] [facility] [address] MEDICAL REC #: [id number] [place] [address] EMERGENCY DEPARTMENT CHART EMERGENCY DEPARTMENT PHYSICIAN We have given you these prescriptions that you must fill and start taking: Phenergan 12.5 mg tablet, count:12, Dose = 1, count:12, 3 days, count:12,every 6 hours, count:12, Number of Refills = 0, count:12 Zantac 150 mg tablet, count:14, Dose = 1, count:14, 7 days, count:14,twice a day, count:14, Number of Refills = 0, count:14 COMMENTS: Patient Satisfaction: Within the first few days after your visit, you will receive an email and/or phone call regarding your visit. We value your feedback, and would appreciate it if you would take the time to complete this short survey. If you receive a call, it will be between 6p and 8p. My signature below indicates that I have received and understand the oral instructions regarding my medical problem. I also acknowledge receipt of this written instruction sheet including a list of major tests and procedures ordered during my visit. I will arrange for follow-up care as indicated by these instructions and referrals. This signed original will be kept in my medical record. Your signature below indicates consent for Case Management to contact [facility] providers in an effort to meet your ongoing healthcare needs. This will allow forcontinuity of care once you leave the Emergency Department. This exchange of informationwill include, but not be limited to, disclosure of your patient information and possible release of records. 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 MEDICAL REC #: [id number] [place] [address] EMERGENCY DEPARTMENT CHART EMERGENCY DEPARTMENT PHYSICIAN Registration Date: 21:12/05/2017 Address: [address] Address: [place] [address] REGISTRATION ED Number: [id number] Marital Status: S Financial Class: [facility] TRIAGE Priority: 3 - Urgent Complaint: Epigastric Pain Complaint: Vomiting Stated Complaint: Epigastric pain and vomiting x4 days. Unable to keep anything down. 11 weeks . Arrival Date: 12/05/2017 21:41 Triage Date: 12/05/2017 21:48 Mode of Arrival: *Privately Owned Vehicle Transfer From: * Home WC: N Language: [place] Transport: Ambulatory/Walk In BED C26 In: 12/05/2017 22:16:14 12/05/2017 22:16:14 AG C26 (Removed From) Out: 12/06/2017 01:02:55 12/06/2017 01:02:55 SMWA PROVIDERS MITCH GONCALVES Provider Contact: 12/05/2017 22:27:35 SMWA End: ROBIN Goldstein Provider Contact: 12/05/2017 [facility] PATIENT NAME: LIZZYGIDEON Morales [address] [facility] [address] MEDICAL REC #: [id number] [place] [address] EMERGENCY DEPARTMENT CHART EMERGENCY DEPARTMENT PHYSICIAN 23:07:48 JRD End: MD Lawrence Pérez Provider Contact: 12/05/2017 23:17:16 BAM End: TRIAGE HISTORY ALLERGIES Allergic To: No Known Allergies 12/05/2017 21:51 JIF CURRENT MEDS Name: VITAMIN B6 50MG TABLET - PO BID 12/05/2017 22:51 SMWA Name: vitamins DAILY 12/05/2017 22:51 SMWA Name: VERIFIED WITH PT 12/05/2017 12/05/2017 22:51 SMWA ILLNESS Illness: *None 12/05/2017 21:51 JIF PAST SURGERY HIST Surgery: None 12/05/2017 21:51 JIF PAST SOCIAL HIST Social History: Communicates without difficulty 12/05/2017 21:51 JIF Social History: Lives with family or significant other 12/05/2017 21:51 JIF Social History: Alcohol - None 12/05/2017 21:51 JIF Social History: Smoker-None 12/05/2017 21:51 JIF Social History: Recreational Drugs - None 12/05/2017 21:51 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 MEDICAL REC #: [id number] [place] [address] EMERGENCY DEPARTMENT CHART EMERGENCY DEPARTMENT PHYSICIAN IMMUNIZATIONS Immunization: Flu Vaccine-no 12/05/2017 21:51 JIF NURSING ASSESSMENT ASSESSMENT NOTES 12/05/2017 22:40 Pt presents to the ED with c/c of upper abd pain /epigastric pain. Pt states for the past week she has not been able to keep anything down. Pt does conform that she is 11wks . Pt states that she has been having n/v/d. Bowel sounds are present. Pt is Aandamp;Ox4. Denies any SOB or chest pain 12/05/2017 22:42 SMWA TREATMENT 12/05/2017 22:39 Hourly Rounding - Rounding 12/05/2017 22:40 SMWA Elimination/Toileting N Pain 6 Position Comfortable Y Safe Environment Y Fall Risk Change N 12/05/2017 22:39 Patient Interaction - Call light placed within reach. 12/05/2017 22:40 SMWA 12/05/2017 22:39 Patient Interaction - Introduce self to Patient. 12/05/2017 22:40 SMWA 12/05/2017 22:39 Patient Interaction - Name Band on Pt 12/05/2017 22:40 SMWA 12/05/2017 22:39 Primary DOC Guide - A. 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 MEDICAL REC #: [id number] [place] [address] EMERGENCY DEPARTMENT CHART EMERGENCY DEPARTMENT PHYSICIAN processing plant No TB Screening All Negative Latex Allergy Screen All Negative Travel History - Traveled outside of the state in the last 30 days No Travel History - Had contact with a person who has traveled outside the state in the last 30 days No 12/05/2017 22:40 Primary DOC Guide - B. Fall Risk Assessment (Age andlt;65) 12/05/2017 22:40 SMWA History of Falling in last 3 months? No (0) Confusion or Disorientation? No (0) Intoxicated or Sedated? No (0) Impaired Gait? No (0) Mobility Assist Device Used? No (0) Altered Elimination? No (0) Fall Risk Score 1-2 Points = Low Risk. 3-4 Points = Moderate Risk. 5 or more points = High Risk. 0 Fall Score Greater andgt;= 3? No 12/05/2017 22:40 Primary DOC Guide - D. Psychosocial Assessment 12/05/2017 22:40 SMWA Over the Last 2 weeks, how often have you had little interest or pleasure in doing things (0) Not at All Is Psychosocial Assessment Score 3 or more? If score is 3 or more please consult ED Navigator! No Total Psychosocial Assessment Score 0 Over the last 2 weeks, how often have you been feeling down, depressed or hopeless (0) Not at All 12/05/2017 22:40 Primary DOC Guide - E. Family Violence Assessment 12/05/2017 22:40 SMWA Within the past year, has anyone ever pushed, shoved, slapped, choked, hit, punched or kicked you: No Within the past year, has anyone ever pressured or forced you to have sexual activities when you did not want to: No Do you feel safe and well cared for: Yes Is there a partner from a previous or current relationship that is making you feel unsafe now: No MEDICATIONS [facility] PATIENT NAME: GIDEON BALL [address] [facility] [address] MEDICAL REC #: [id number] [place] [address] EMERGENCY DEPARTMENT CHART EMERGENCY DEPARTMENT PHYSICIAN IV I AND O VITALS VS-ROUTINE Time: 12/05/2017 21:48 B/P: 133/68 - Left Upper Arm - Sitting - Machine Pulse: 69 - Card Mounter Resp: 18 Sa02: 99 Room Air Temp: 98.70 F - Oral 12/05/2017 21:51 JIF VS-Pain Time: 12/05/2017 21:48 Pain Level: 3 12/05/2017 21:51 JIF VS-GCS Time: 12/05/2017 21:48 Visual: 4 Verbal: 5 Motor: 6 GCS Total: 15 12/05/2017 21:51 JIF VS-HT/WT Time: 12/05/2017 21:48 Weight: 195 lbs Stated 12/05/2017 21:51 JIF VS-Visual Time: 12/05/2017 21:48 12/05/2017 21:51 JIF VS-FHT Time: 12/05/2017 21:48 12/05/2017 21:51 JIF VS-Notes Time: 12/05/2017 21:48 map 92 12/05/2017 21:51 JIF VS-ROUTINE Time: 12/05/2017 22:38 B/P: 128/73 - Right Upper Arm - Lying - Machine Pulse: 59 - Monitor Resp: 24 Sa02: 98 Room Air 12/05/2017 22:39 SMWA VS-Pain Time: 12/05/2017 22:38 Pain Level: 6 12/05/2017 22:39 SMWA VS-GCS Time: 12/05/2017 22:38 Visual: 4 Verbal: 5 Motor: 6 GCS Total: 15 12/05/2017 22:39 SMWA VS-HT/WT Time: 12/05/2017 22:38 12/05/2017 22:39 SMWA VS-Visual Time: 12/05/2017 22:38 12/05/2017 22:39 SMWA VS-FHT Time: 12/05/2017 22:38 12/05/2017 22:39 SMWA VS-Notes Time: 12/05/2017 22:38 MAP 95 12/05/2017 22:39 SMWA VS-ROUTINE Time: 12/06/2017 01:02 B/P: 126/61 - Right Upper Arm - Lying - Machine Pulse: 74 - Monitor Resp: 20 Sa02: 95 Room Air 12/06/2017 01:02 SMWA VS-Pain Time: 12/06/2017 01:02 Pain Level: 0 12/06/2017 01:02 SMWA [facility] PATIENT NAME: GDIEON BALL Morales [address] MEDICAL REC #: [id number] [place] [address] EMERGENCY DEPARTMENT CHART EMERGENCY DEPARTMENT PHYSICIAN VS-GCS Time: 12/06/2017 01:02 Visual: 4 Verbal: 5 Motor: 6 GCS Total: 15 12/06/2017 01:02 SMWA VS-HT/WT Time: 12/06/2017 01:02 12/06/2017 01:02 SMWA VS-Visual Time: 12/06/2017 01:02 12/06/2017 01:02 SMWA VS-FHT Time: 12/06/2017 01:02 12/06/2017 01:02 SMWA VS-Notes Time: 12/06/2017 01:02 MAP 86 12/06/2017 01:02 SMWA ORDERS Discharge patient 12/06/2017 00:46 N/A Ordered: 12/06/2017 00:33 By . Other Reviewed: 12/06/2017 00:46 By . Other PO fluids 12/06/2017 00:24 N/A Ordered: 12/06/2017 00:22 By Jj Goldstein Completed Time: 12/06/2017 00:24 By Jj Goldstein Noted Time: 12/06/2017 00:24 SMWA SOFTWARE SECURITY CONSULTANT ORDER: GFRP 12/06/2017 00:06 None Ordered: 12/06/2017 00:06 Completed Time: 12/06/2017 00:06 Results Time: 12/05/2017 00:05 Pepcid (IV)(20mg/2ml) DOSE: 20 mg IV 12/05/2017 23:51 N/A Ordered: 12/05/2017 23:30 By Jj Goldstein Completed Time: 12/05/2017 23:51 By Jj Goldstein Noted Time: 12/05/2017 23:32 SMWA Phenergan (IVPB)(12.5mg/50ml NS) DOSE: 12.5 mg IV 12/05/2017 23:51 N/A Ordered: 12/05/2017 23:17 By Jj Goldstein Completed Time: 12/05/2017 23:51 By Jj Goldstein Noted Time: 12/05/2017 23:32 SMWA IV NS bolus 1L over 30 min 12/06/2017 00:24 N/A Ordered: 12/05/2017 23:17 By Jj Goldstein [facility] PATIENT NAME: GIDEON BALL [facility] [address] MEDICAL REC #: [id number] [place] [address] EMERGENCY DEPARTMENT CHART EMERGENCY DEPARTMENT PHYSICIAN Completed Time: 12/06/2017 00:24 By Jj Goldstein Noted Time: 12/05/2017 23:32 SMWA Liver profile 12/06/2017 00:14 N/A Ordered: 12/05/2017 23:17 By Jj Goldstein Completed Time: 12/06/2017 00:14 By Jj Goldstein Noted Time: 12/05/2017 23:44 SMWA Results Time: 12/06/2017 00:14 CBC with diff 12/05/2017 23:58 N/A Ordered: 12/05/2017 23:17 By Jj Goldstein Completed Time: 12/05/2017 23:58 By Jj Goldstein Noted Time: 12/05/2017 23:44 SMWA Results Time: 12/05/2017 23:58 IV NS drip 100cc/hr 12/05/2017 23:32 N/A Ordered: 12/05/2017 23:17 By Jj Goldstein Noted Time: 12/05/2017 23:32 SMWA BMP 12/06/2017 00:06 N/A Ordered: 12/05/2017 23:17 By Jj Goldstein Completed Time: 12/06/2017 00:06 By Jj Goldstein Noted Time: 12/05/2017 23:44 SMWA Results Time: 12/05/2017 00:05 Lipase 12/06/2017 00:06 N/A Ordered: 12/05/2017 23:17 By Jj Goldstein Completed Time: 12/06/2017 00:06 By Jj Goldstein Noted Time: 12/05/2017 23:44 SMWA Results Time: 12/05/2017 00:05 DISCHARGE Diagnosis: acute vomiting during , acute epigastric discomfort secondary to vomiting 12/06/2017 00:34 Disposition: Time: 12/06/2017 00:33 Discharge Time: 12/06/2017 01:02 Type: Discharge Condition: Stable for admission/discharge/transfer [facility] PATIENT NAME: GIDEON BALL [address] [facility] [address] MEDICAL REC #: [id number] [place] [address] EMERGENCY DEPARTMENT CHART EMERGENCY DEPARTMENT PHYSICIAN after emergency evaluation/treatment Category: *NOT APPLICABLE Referral: 12/06/2017 00:34 Admit Physician: . Other PRESCRIPTIONS Phenergan 12.5 mg tablet 12/06/2017 00:34 SI q6h Nausea/ vomiting for 3 days Dispense: 12 / Refills: Zantac 150 mg tablet 12/06/2017 00:34 SI twice a day for 7 days Dispense: 14 / Refills: CHARGES SIGNATURE Lawrence CRAIG RNPCC AG JJ RITCHIE RN PADDY Goldstein DEPLOYMENT SPECIALIST JRD MITCH WADE SMWA [facility] PATIENT NAME: GIDEON BALL [address] [facility] [address] MEDICAL REC #: [id number] [place] [address] EMERGENCY DEPARTMENT CHART EMERGENCY DEPARTMENT PHYSICIAN BMP Collected: 12/05/2017 Status: F Source: [facility] 11:41 PM [facility] REPOSITORY Order Comment: Mead: TYPE CODE TESTS RESULT OUT OF RANGE REFERENCE UNITS LAB L500.13540 136-145 MMOL/L Normal NA 136 LAB L500.11355 3.5-5.1 MMOL/L Normal K 3.9 LAB L500.95359 98-107 MMOL/L Normal CL 103 LAB L500.46978 21-32 MMOL/L Normal CO2 23 LAB L500.78980 5-16 MMOL/L Normal AGAP 10 LAB L500.97253 70-100 MG/DL Normal GLU 80 Result Comment: 70-100- Normal Fasting; 100-125 Impaired Fasting; greater than 126 on more than one result- Diabetes. ADA guidelines. Results may be falsely elevated after the administration of Sulfapyridine. Results may be falsely depressed after the administration of Sulfasalazine. LAB L500.95379 7-26 MG/DL Normal BUN 11 LAB L500.66075 0.510-0.950 MG/DL Normal CREAT 0.602 Result Comment: Patients receiving either N-Acetylcysteine (NAC) or Metamizole prior to venipuncture, may have falsely depressed results. LAB L500.53839 15-24 Normal BUN/CREA 18 LAB L500.60984 8.5-10.1 MG/DL High CALCIUM TOTAL 10.3 Performed By: #### L500.96283, L500.44055, L500.82461 #### [facility] [address] [place] [address] GFR EST Collected: 12/05/2017 Status: F Source: [facility] 11:41 [facility] REPOSITORY Order Comment: Mead: M TYPE CODE TESTS RESULT OUT OF RANGE REFERENCE UNITS LAB L500.58740 ML/MIN Normal IF non-AFR Greater than AMER 60 LAB L500.28078 ML/MIN Normal IF Greater than AMER 60 Performed By: #### L500.93406, L500.91326, L500.33148 #### [facility] [address] [place] [address] LIPASE Collected: 12/05/2017 Status: F Source: [facility] 11:41 [facility] REPOSITORY Order Comment: Mead: M TYPE CODE TESTS RESULT OUT OF RANGE REFERENCE UNITS LAB L500.70624 73-393 U/L Normal LIPASE 186 Performed By: #### L500.22519, L500.80460, L500.95846 #### [facility] [address] [place] [address] CBC W/DIFF Collected: 12/05/2017 Status: F Source: [facility] 11:41 [facility] REPOSITORY Order Comment: Mead: M TYPE CODE TESTS RESULT OUT OF RANGE REFERENCE UNITS LAB L200.33247 4.5-11.0 K/CU MM High WBC 14.4 LAB L200.12899 3.90-5.30 M/CU MM RBC Normal 5.21 LAB L200.78316 11.5-15.5 G/DL HGB Normal 15.3 LAB L200.02650 35.0-47.0 % HCT Normal 45.1 LAB L200.02817 80.0-99.0 fl MCV Normal 86.6 LAB L200.68257 32.0-36.0 GM/DL MCHC Normal 33.9 LAB L200.28986 11-14.5 RDW Normal 14.3 LAB L200.54723 9.4-12.4 MPV Normal 11.9 LAB L200.18403 150-450 K/CU MM PLT Normal 230 LAB L200.24592 45-75 % NEUTROPHILS Normal % 73.9 LAB L200.46116 Less than 2 % IMMATURE Normal GRAN % 0.3 LAB L200.30718 20-40 % Low LYMPH % 17.5 LAB L200.47011 2-10 % MONOCYTE % Normal 6.4 LAB L200.69190 0-5 % EOSINOPHIL Normal % 1.5 LAB L200.70968 0-2 % BASOPHIL % Normal 0.4 LAB L200.84603 2.0-8.3 K/CU MM High NEUTROPHIL ABS 10.70 LAB L200.64119 Less than 2 K/CU MM IMMATR GRAN Normal ABS 0.00 LAB L200.16068 0.9-4.4 K/CU MM LYMPH ABS Normal 2.50 LAB L200.20801 0.1-1.1 K/CU MM MONO ABS Normal 0.90 LAB L200.11466 0-0.5 K/CU MM EOS ABS Normal 0.20 LAB L200.71001 0-0.2 K/CU MM BASO ABS Normal 0.10 LAB L200.35224 Less than 1 % NRBC Normal 0.0 Performed By: #### L200.33604 #### [facility] [address] [place] [address] LIVER Collected: 12/05/2017 Status: F Source: [facility] 11:41 PM [facility] REPOSITORY Order Comment: Mead: TYPE CODE TESTS RESULT OUT OF RANGE REFERENCE UNITS LAB L500.59573 6.0-8.5 GM/DL High TP 8.7 LAB L500.74734 3.2-5.0 GM/DL Normal ALBUMIN 4.3 LAB L500.65897 2.2-4.2 GM/DL High GLOBULIN 4.4 LAB L500.37016 0.8-2.0 Normal A/G RATIO 1.0 LAB L500.54458 0.2-1.0 MG/DL Normal BILI TOTAL 0.6 LAB L500.35545 0.00-0.20 MG/DL Normal BILI DIRECT 0.18 LAB L500.88335 8-34 U/L Normal SGOT (AST) 14 Result Comment: RESULTS MAY BE FALSELY DEPRESSED AFTER THE ADMINISTRATION OF SULFASALAZINE AND/OR SULFAPYRIDINE. LAB L500.13174 13-61 IU/L Normal SGPT (ALT) 29 Result Comment: RESULTS MAY BE FALSELY DEPRESSED AFTER THE ADMINISTRATION OF SULFASALAZINE AND/OR SULFAPYRIDINE. LAB L500.03795 45-117 U/L Normal ALK PHOS 114 Performed By: #### L500.99915 #### [facility] [place] [address] CBC Collected: 11/17/2017 Status: F Source: [facility] 3:10 PM [facility] REPOSITORY TYPE CODE TESTS RESULT OUT OF REFERENCE UNITS RANGE LAB WBC 3.70-11.00 k/uL WBC 10.97 LAB RBC 3.90-5.20 m/uL RBC 4.95 LAB HGB 11.5-15.5 g/dL Hemoglobin 14.6 LAB HCT 36.0-46.0 % Hematocrit 44.7 LAB MCV 80.0-100.0 fL MCV 90.3 LAB MCH 26.0-34.0 pG MCH 29.5 LAB MCHC 30.5-36.0 g/dL MCHC 32.7 LAB RDWCV 11.5-15.0 % RDW-CV 14.4 LAB PLTCT 150-400 k/uL Platelet Count 245 LAB MPV 9.0-12.7 fL MPV 12.3 LAB ABSNUC <0.01 k/uL Absolute nRBC <0.01 Performed By: #### CBC, SYPHGX, HBSAG, HIV12C, RUBIGG #### [place] [address] SYPHILIS IGG WITH Collected: 11/17/2017 Status: F Source: [facility] 3:10 PM [facility] REPOSITORY TYPE CODE TESTS RESULT OUT OF REFERENCE UNITS RANGE LAB SYPHQL Nonreactive Syphilis IgG, Nonreactive Qual Result Comment: In conjunction with this result, the immune status of the patient should be evaluated based on their clinical status, related risk factors, and other diagnostic test results. LAB SYPHLG AI Syphilis IgG <0.2 Result Comment: Antibody index is interpreted as follows: Non reactive SPECIMENS <=0.8 Weak reactive SPECIMENS 0.9 to 5.9 Reactive SPECIMENS >=6.0 Performed By: #### CBC, SYPHGX, HBSAG, HIV12C, RUBIGG #### [place] [id number] [place] [address] HEPATITIS B SURF. AG Collected: 11/17/2017 Status: F Source: [facility] 3:10 PM [facility] REPOSITORY TYPE CODE TESTS RESULT OUT OF REFERENCE UNITS RANGE LAB HBSAG Negative Hepatitis B Negative Surf. Ag Performed By: #### CBC, SYPHGX, HBSAG, HIV12C, RUBIGG #### [place] [id number] HIV 12 COMBO (AG/AB) Collected: 11/17/2017 Status: F Source: [facility] 3:10 PM [facility] REPOSITORY TYPE CODE TESTS RESULT OUT OF REFERENCE UNITS RANGE LAB HVAGAB Non Reactive HIV Non Reactive 12 Ag/Ab Result Comment: (NOTE) HIV Information: [place] Rev. Code 3701.243(E): This information has been disclosed to you from confidential records protected from disclosure by state law. You shall make no further disclosure of this information without the specific, written, and informed release of the individual to whom it pertains, or as otherwise permitted by state law. A general authorization for the release of medical or other information is not sufficient for the purpose of the release of HIV test results or diagnoses. Performed By: #### CBC, SYPHGX, HBSAG, HIV12C, RUBIGG #### [place] [address] RUBELLA IGG ANTIBODY Collected: 11/17/2017 Status: F Source: [facility] 3:10 PM [facility] REPOSITORY TYPE CODE TESTS RESULT OUT OF REFERENCE UNITS RANGE LAB RUBGQL Negative Rubella IgG Negative Ab, Qual Result Comment: Sample is considered negative for IgG antibodies to rubella virus. A negative result presumes that immunity has not been acquired. If exposure to rubella virus is suspected despite a neg ative finding, a second specimen should be collected and tested one to two weeksn later. Seroconversion from a negative specimen to a positive specimen is evidence of either recent infection, response to vaccination, or administration of immunoglobulins. LAB RUBQNT Index Value Rubella IgG Ab 0.41 Result Comment: Index values are interpreted as follows: Negative specimens <0.90 Equivocol specimens 0.90 to 0.99 Positive specimens >0.99 The magnitude of the measured result is not indicative of the amount of antibody present. Performed By: #### CBC, SYPHGX, HBSAG, HIV12C, RUBIGG #### [facility] [address] [place], [place] [address] TYPE AND SCR,PRENATL Collected: 11/17/2017 Status: F Source: [facility] 3:10 PM [facility] REPOSITORY TYPE CODE TESTS RESULT OUT OF REFERENCE UNITS RANGE LAB %ABR O ABO/RH(D) POSITIVE LAB % Antibody NEG Screen Performed By: #### TSPN #### [facility] [address] [place], [place] [address] Observed: 11/17/2017 Status: F Source: [facility] URINE CULTURE 3:10 PM [facility] REPOSITORY Sp. Request/Comment: - Specimen received in preservative Culture Result - <10,000 CFU/ml Gram negative bacilli --> ABNORMAL ALERT Insignificant colony count. No further workup. --> ABNORMAL ALERT <10,000 CFU/ml Normal urogenital teresa Performed By: #### URCUL #### [facility] [address] [place], [place] [address] PROGRESS Observed: 11/11/2017 Status: COMPLETED Source: [facility] 7:49 AM [facility] REPOSITORY HNO ID: [id number] Author: Karrie Martinez (Pa) Service: (none) Author Type: Physician Diesel Engine Mechanic Apprentice Type: Progress Notes Filed: 11/11/2017 8:26 AM Note Text: Chief Complaint Patient presents with: ED Follow-up HPI Gideon Ball is a 22 year old female who presents here today for Acute onset of Low back pain.. Patient was cleaning out her car on 11/06/17 and thinks she may have twisted wrong. That day had pain with just movement but then over the weekend pain worsened. Went to ER where they recommended tylenol for pain. Has had n/t into both legs. Pain radiates into legs as well. Hx of similar back pain. MRI in 2012 showed DDD. Past medical history, appointments, medications, allergies reviewed. Previous Medical History PAST MEDICAL HISTORY Diagnosis Date - Acne 02/20/2011 - Asthma childhood asthma - Fracture of metatarsal of right foot, closed fall fo 2008 resolved, right great toe - Irritated//Inflamed Seborrheic Keratosis 09/18/2010 - Melanocytic nevus of L upper extremity: L shoulder 09/18/2010 Previous Surgical History PAST SURGICAL HISTORY Procedure Laterality Date - NONE Family History FAMILY HISTORY Problem Relation Age of Onset - Alcohol/Drug Brother - Alcohol/Drug Sister - Genitourinary () Mother Kidney stones - Alcohol/Drug Mother - hepatitis c [OTHER] Mother - Alcohol/Drug Father - Heart Paternal Grandfather , CABG triple - Hypertension Paternal Grandfather - Coronary Artery Disease Paternal Grandmother stroke-68, carotid arteries - Hypertension Paternal Grandmother - Diabetes Maternal Grandfather - Breast Cancer Maternal Grandmother Patient Allergies ALLERGIES Allergen Reactions - Nickel Rash - Environmental [Othe* Current Medications Current Outpatient Prescriptions on File Prior to Visit: Mfrzzvfz-Bg-Yyu-Fe-FA ( VITAMIN) tab Take 1 tablet by mouth. etonogestrel (NEXPLANON) subdermal implant 68 mg 1 Each by SUBDERMAL route one time only for 1 dose. FEXOFENADINE HCL (PAMELLA ORAL) Take by mouth. diphenhydrAMINE (BENADRYL) 25 mg tablet Take 50 mg by mouth every 6 hours as needed for Itching/Rash or Cold/Allergy Symptoms. ibuprofen (MOTRIN) 200 mg tablet Take 200 mg by mouth every 6 hours as needed for Pain. No current facility-administered medications on file prior to visit. Social History Social History Marital status: Single Spouse name: Years of education: 14 Number of children: Occupational History Occupation Employer Comment unemployed Social History Main Topics Smoking status: Former Smoker Packs/day: 0.00 Years: 2.00 Smokeless status: Never Used Comment: quit due to Alcohol use: No Drug use: No Sexual activity: Yes Partners with: Male control/protection: Condom Review of Symptoms REVIEW OF SYSTEMS SEE HPI EXAM: BP 124/70 (BP Site: Left Arm, BP Position: Sitting, BP Cuff Size: Large Adult) Pulse 64 Wt 90 kg (198 lb 8 oz) LMP 09/06/2017 (Exact Date) BMI 32.04 kg/m2 General Appearance: Mild-moderate pain.. Musculoskeletal: Pain with palp of low back. SLR positive b/l for pain and n/t radiating into leg. Decreased ROM with flexion and extension. Full lateral flexion b/l Peripheral Pulses: Normal. Neurologic: Reflexes normal and symmetric. Sensation intact. Health Maintenance List ONE PNEUMOVAX PRIOR TO AGE 65 due on 11/09/2015 INFLUENZA(Season Ended) due on 03/28/2018 GC (GONORRHEA) SCREENING (18-24) due on 09/17/2018 CHLAMYDIA SCREENING (18-24) due on 09/17/2018 TETANUS due on 03/05/2020 PAP EVERY 3 YEARS (21-30 YEAR OLDS) due on 09/17/2020 HPV VACCINE Completed ASSESSMENT/PLAN: 1. Acute midline low back pain with bilateral sciatica - ICD9: 724.2, 724.3, ICD10: M54.42, M54.41 Sciatica Weighed pros and cons of medications and imaging Will Start low dose flexeril prn and consult to Physical Therapy Continue tylenol Follow up in 1 week as needed. - CYCLOBENZAPRINE 5 MG TABLET - CONSULT TO PHYSICAL THERAPY CRYSTAL PELAEZ CNOV Observed: 11/11/2017 Status: COMPLETED Source: [place] 7:40 AM [facility] REPOSITORY Office Visit (FAMPWS) LIZZYGIDEON ([id number]) 1995 [facility] Date Time Provider Department 11/11/17 7:40 AM KARRIE MARTINEZ) FAMPWS During your visit today, we recorded the following information about you: Pulse Blood pressure Weight 64/minute 124/70 90 kg CRYSTAL PELAEZ 11/11/2017 8:26 AM Signed Chief Complaint Patient presents with: ED Follow-up HPI Gideon Nielsen Lizzy is a 22 year old female who presents here today for Acute onset of Low back pain.. Patient was cleaning out her car on 11/06/17 and thinks she may have twisted wrong. That day had pain with just movement but then over the weekend pain worsened. Went to ER where they recommended tylenol for pain. Has had n/t into both legs. Pain radiates into legs as well. Hx of similar back pain. MRI in 2012 showed DDD. Past medical history, appointments, medications, allergies reviewed. Previous Medical History PAST MEDICAL HISTORY Diagnosis Date - Acne 02/20/2011 - Asthma childhood asthma - Fracture of metatarsal of right foot, closed fall fo 2009 resolved, right great toe - Irritated//Inflamed Seborrheic Keratosis 09/18/2010 - Melanocytic nevus of L upper extremity: L shoulder 09/18/2010 Previous Surgical History PAST SURGICAL HISTORY Procedure Laterality Date - NONE Family History FAMILY HISTORY Problem Relation Age of Onset - Alcohol/Drug Brother - Alcohol/Drug Sister - Genitourinary () Mother Kidney stones - Alcohol/Drug Mother - hepatitis c [OTHER] Mother - Alcohol/Drug Father - Heart Paternal Grandfather , CABG triple - Hypertension Paternal Grandfather - Coronary Artery Disease Paternal Grandmother stroke-68, carotid arteries - Hypertension Paternal Grandmother - Diabetes Maternal Grandfather - Breast Cancer Maternal Grandmother Patient Allergies ALLERGIES Allergen Reactions - Nickel Rash - Environmental [Othe* Current Medications Current Outpatient Prescriptions on File Prior to Visit: Njgstzly-Qs-Czx-Fe-FA ( VITAMIN) tab Take 1 tablet by mouth. etonogestrel (NEXPLANON) subdermal implant 68 mg 1 Each by SUBDERMAL route one time only for 1 dose. FEXOFENADINE HCL (PAMELLA ORAL) Take by mouth. diphenhydrAMINE (BENADRYL) 25 mg tablet Take 50 mg by mouth every 6 hours as needed for Itching/Rash or Cold/Allergy Symptoms. ibuprofen (MOTRIN) 200 mg tablet Take 200 mg by mouth every 6 hours as needed for Pain. No current facility-administered medications on file prior to visit. Social History Social History Marital status: Single Spouse name: Years of education: 14 Number of children: Occupational History Occupation Employer Comment unemployed Social History Main Topics Smoking status: Former Smoker Packs/day: 0.00 Years: 2.00 Smokeless status: Never Used Comment: quit due to Alcohol use: No Drug use: No Sexual activity: Yes Partners with: Male control/protection: Condom Review of Symptoms REVIEW OF SYSTEMS SEE HPI EXAM: BP 124/70 (BP Site: Left Arm, BP Position: Sitting, BP Cuff Size: Large Adult) Pulse 64 Wt 90 kg (198 lb 8 oz) LMP 09/06/2017 (Exact Date) BMI 32.04 kg/m2 General Appearance: Mild-moderate pain.. Musculoskeletal: Pain with palp of low back. SLR positive b/l for pain and n/t radiating into leg. Decreased ROM with flexion and extension. Full lateral flexion b/l Peripheral Pulses: Normal. Neurologic: Reflexes normal and symmetric. Sensation intact. Health Maintenance List ONE PNEUMOVAX PRIOR TO AGE 65 due on 11/09/2015 INFLUENZA(Season Ended) due on 03/28/2018 GC (GONORRHEA) SCREENING (18-24) due on 09/17/2018 CHLAMYDIA SCREENING (18-24) due on 09/17/2018 TETANUS due on 03/05/2020 PAP EVERY 3 YEARS (21-30 YEAR OLDS) due on 09/17/2020 HPV VACCINE Completed ASSESSMENT/PLAN: 1. Acute midline low back pain with bilateral sciatica - ICD9: 724.2, 724.3, ICD10: M54.42, M54.41 Sciatica Weighed pros and cons of medications and imaging Will Start low dose flexeril prn and consult to Physical Therapy Continue tylenol Follow up in 1 week as needed. - CYCLOBENZAPRINE 5 MG TABLET - CONSULT TO PHYSICAL THERAPY CRYSTAL PELAEZ Referring Provider: SELF [200] Allergies As of Date: 11/11/2017 Noted Allergy Reaction NICKEL 05/13/2017 2 - Rash environmental [Other] 12/23/2006 Date Reviewed: 11/11/2017 Reviewed by: Calli Gaona MA - Fully Assessed Reason for Visit: ED Follow-up [821] Primary Visit Diagnosis:Acute midline low back pain with bilateral sciatica [M54.42, M54.41] Order(s):cyclobenzaprine (FLEXERIL) 5 mg tabletTake 1 tablet by mouth three times daily as needed for Muscle Spasm.Disp: 30 tabletRfl: 0 CONSULT TO PHYSICAL THERAPY [9032] Order #: [id number]: 1 Prescriptions as of 11/11/2017 Sig: PROMETHAZINE 25 MG TAB (PHENE* Take 25 mg by mouth every 6 h* ACETAMINOPHEN 325 MG TABLET Take 500 mg by mouth every 6 * CYCLOBENZAPRINE 5 MG TABLET Take 1 tablet by mouth three * VITAMIN,CALCIUM,MINE* Take 1 tablet by mouth. ETONOGESTREL 68 MG SUBDERMAL * 1 Each by SUBDERMAL route one* PAMELLA ORAL Take by mouth. DIPHENHYDRAMINE 25 MG TABLET Take 50 mg by mouth every 6 h* IBUPROFEN 200 MG TABLET Take 200 mg by mouth every 6 * Medication notes this encounter IBUPROFEN 200 MG TABLET >> Calli Gaona MA 11/11/2017 7:42 AM >> THOMAS GAONA MAKATHIE Walden Nov 11, 2017 7:42 AM No longer taking Problem List As Of Date 11/11/2017 Noted Resolved Closed fracture of one or more phalanges of makayla*INVALID FOR*07/22/2012 Irritated//Inflamed Seborrheic Keratosis [L82.0]INVALID FOR* Viral warts, unspecified [B07.9] INVALID FOR*07/22/2012 Melanocytic nevus of L upper extremity: L shoul*INVALID FOR* Acne [L70.9] INVALID FOR* Left-sided weakness [R53.1] INVALID FOR* Unplanned [Z34.90] INVALID FOR* More... Nausea/vomiting in [O21.9] INVALID FOR* More... History of alcohol abuse [Z87.898] INVALID FOR* More... Maternal tobacco use in first trimester [O99.33*INVALID FOR* More... Family history of congenital heart defect [Z82.*INVALID FOR* More... Patient requested diagnostic testing [Z01.89] INVALID FOR* More... Urine culture positive [R82.79] INVALID FOR* More... Prescriptions ordered this encounter Disp Refills Start End CYCLOBENZAPRINE 5 MG TABLET 30 t* 0 11/11/2017 Route: ORAL Sig: Take 1 tablet by mouth three times daily as needed for Muscle Spasm. Disposition: Return if symptoms worsen or fail to improve. Follow-up and Disposition History Recorded Encounter Status:Closed by KARRIE MARTINEZ on 11/11/17 EMERGENCY DEPARTMENT Observed: 2017 Status: F Source: [place] SUMMARY 11:33 PM [facility] REPOSITORY [facility] Medical Records Department [address] [place] [address] Emergency Department Summary 11/08/17 2326 MR#: [id number] Acct: [id number] Name: GIDEON BALL Rep #: [id number] : 1995 22 From: Roderick Larsen PCP: Ernst Gottlieb MD Status: REG ER - ER Visit Summary Date of Service: 11/08/17 Chief Complaint: Back pain History of Present Illness: The patient is a 22 F increasing lower back pain over the past 2 days. States pain goes down both legs. No loss of bowel or bladder control. Patient is 7 weeks 5 days . . Using Tylenol, last dose at noon, however states she vomited up. Complains of nausea. Saw OB on Friday with the official ultrasound. History of similar when she was younger, requiring therapy. Currently on vitamins. Symptoms started after cleaning her car thinks she tweaked something. Was told she had herniated disc in the past. No surgical intervention. In addition states she had a UTI from a culture started on Macrobid 2 days ago. Is taking her medications. Denies fever. Physical Examination: General: Alert and oriented 3, uncomfortable s HEENT: Normocephalic, atraumatic. Moist mucosa membranes Neck: supple, nontender. Cardiovascular: Regular rate and rhythm, no murmurs Respiratory: Normal breath sounds, symmetric, no distress Back: Lower lumbar tenderness. Straight leg test was negative however did elicit pain in her back. 2+ patellar reflex bilaterally. Abdomen: Soft, nontender, nondistended Extremities: Nontender, no edema, pulses intact 4 Neuro: no focal neurological deficits. Test Results: [] Emergency Department Course and Treatment: Bedside ultrasound performed heart tone was 128. Patient history exam concerns for high sciatica symptoms for possible herniation with her history. She had no cauda equina symptoms. Discussed with patient parents at bedside and significant other, with her , safe treatment would be continuing Tylenol. Discussed increasing pain medicines will have more risk for her fetus. They understand. With her nausea symptoms she is given Phenergan and was able to keep down that in her Tylenol. She will call her physicians on Friday for outpatient follow-up for further treatment. All questions were answered. Patient currently on treatment for UTI from a culture result. Therefore UA was canceled. Treatment Plan: [] Disposition: Discharge Impression: 1. Sciatica 2. First trimester This note was generated with [employer] software. It may contain incorrect words, spelling, and punctuation that were not noted in review of the chart prior to signing ED Disposition - Plan for ED Patient: Disposition: Home or Assisted Living Chief Complaint: Back Diagnosis: Sciatica, First trimester Instructions: ED Sciatica Prescriptions: proMETHazine tablet [Phenergan] 25 mg PO Q6H PRN PRN #10 tablet PRN Reason: Nausea Referrals: Ernst Gottlieb MD [Primary Care Provider] - 2 Days What to do if you have Problems For any increased pain, shortness of breath, bleeding, nausea or vomiting, chest pain, or any unexpected problems, contact your Primary Care Provider. Call Doctors Registry ([phone]) or report to the closest Emergency Room. Call 911 if necessary. 11/08/17 2333 <Electronically signed by Roderick Larsen> Date Roderick Larsen Cosigner Signature (If Indicated): Date CC: Ernst Gottlieb MD TOXICOLOGY SCREEN,UR Collected: 11/03/2017 Status: F Source: [place] 2:50 PM [facility] REPOSITORY TYPE CODE TESTS RESULT OUT OF REFERENCE UNITS RANGE LAB UPCP2 Negative Negative Phencyclidin e, Urine Result Comment: Cutoff threshold at 25 ng/mL. LAB UBENZ2 Negative Benzodiazepines, Ur Negative Result Comment: Cutoff threshold at 200 ng/mL. LAB UCOC2 Negative Cocaine, Negative Urine Result Comment: Cutoff threshold at 300 ng/mL. LAB UAMPH2 Negative Amphetamines, Urine Negative Result Comment: Cutoff threshold at 1000 ng/mL. LAB UTHC2 Negative Cannabinoids, Urine Negative Result Comment: Cutoff threshold at 50 ng/mL. LAB UOPI2 Negative Opiates, Negative Urine Result Comment: Cutoff threshold at 300 ng/mL. LAB UBARB2 Negative Barbiturates, Urine Negative Result Comment: Cutoff threshold at 200 ng/mL. LAB UETOH <11 mg/dL <11 Ethanol, Urine LAB UOXYC Negative Oxycodone, Negative Urine Result Comment: Cutoff threshold at 100 ng/mL. Comment: Immunoassay screen only. Cross reactivity with other substances can occur with immunoassay screening. Detection of any drug(s) in this urine toxicology panel is presumptive only. These tests are for med ical purposes only and should not be used for compliance monitoring, legal, or forensic use. In clinical settings, confirmatory testing is at the practitioner's discretion [1]. If clinically indicated, confirmation by high specificity, quantitative methodology may be requested on the same speci men through Client Services ([phone]) if contacted within 48 hours of initial testing. [1]Substance Abuse and Mental Health Services Administration (2012). Clinical Drug Testing in Primary Care Technical Assistance Publication Series 32. Department of Health and Human Services, [place], p.10. These tests were developed and their performance characteristics determined by [facility]'s Mike Pratt [facility] Pathology and Laboratory Medicine [place] ([facility]). They have not been cleared or a pproved by the FDA. [facility] is regulated under CLIA as qualified to perform high complexity testing. These tests are used for clinical purposes. They should not be regarded as investigational or for research. Performed By: #### [email or web address] #### [facility] Open [email or web address] [address] [place] [id number] Observed: 11/03/2017 Status: F Source: [place] URINE CULTURE 2:50 PM [facility] REPOSITORY Culture Result - >=100,000 CFU/ml Escherichia coli --> ABNORMAL ALERT 50,000 - <100,000 CFU/ml Normal urogenital teresa ORGANISM: Escherichia coli METHOD: Minimum inhibitory concentration(Vitek) Antibiotic Interp VERONICA Status Ampicillin RESISTANT >=32 F Gentamicin SUSCEPTIBLE <=1 F Trimeth sulfameth SUSCEPTIBLE <=20 F Cefazolin SUSCEPTIBLE <=4 F CLSI breakpoints for therapy of uncomplicated UTI's due to E.coli, K.pneumoniae, and P.mirabilis were applied and may be used to predict the activity of oral agents(cefaclor, cefdinir, cefpodoxime, cefp rozil, cefuroxime, cephalexin, loracarbef). Ciprofloxacin SUSCEPTIBLE <=0.25 F Nitrofurantoin SUSCEPTIBLE <=16 F Cefepime SUSCEPTIBLE <=1 F Piperacillin/Tazobac SUSCEPTIBLE <=4 F Ampicillin Sulbact RESISTANT >=32 F Ceftriaxone SUSCEPTIBLE <=1 F Meropenem SUSCEPTIBLE <=0.25 F Ertapenem SUSCEPTIBLE <=0.5 F Performed By: #### URCUL #### [facility] [address] [place], [place] [address] PROGRESS Observed: 11/03/2017 Status: COMPLETED Source: [place] 10:22 AM [facility] REPOSITORY HNO ID: [id number] Author: Elsie Archuleta Service: (none) Author Type: Physician Type: Progress Notes Filed: 11/03/2017 10:51 AM Note Text: INITIAL OB ASSESSMENT OB Provider: Elsie Archuleta MD HPI: Gideon Ball is a 21 year old female here to establish Obstetrical Care. Patient's last menstrual period was 09/06/2017 (exact date). from OB Dating Form. Cycle length: 30 days Complaints: nausea without vomiting was unplanned but accepted. Obstetric History T0 L0 SAB0 TAB0 Ectopic0 Multiple0 Live Births0 Prior : never History of 4th degree laceration: No Patient's Risk Screening for delivery: History of abnormal pap: No Prior treatment for cervical dysplasia: none. History of STDs: None Tobacco use: Yes Caffeine use: No Drug use: No Alcohol use: No Multivitamin with Folic acid: Yes Occupation: not working Orthodoxy or heritage: No Would refuse blood transfusion if medically necessary: No No weight on file for this encounter. Patient BMI over 30? No Marital Status:Single Partner: Name: Alin Junior Age: 19 Occupation: Gender: male History of STDs: None PAST MEDICAL HISTORY Diagnosis Date - Acne 02/20/2011 - Asthma childhood asthma - Fracture of metatarsal of right foot, closed fall fo 2009 resolved, right great toe - Irritated//Inflamed Seborrheic Keratosis 09/18/2010 - Melanocytic nevus of L upper extremity: L shoulder 09/18/2010 PAST SURGICAL HISTORY Procedure Laterality Date - NONE Current Outpatient Prescriptions on File Prior to Visit: Kdseiicq-Sj-Kaa-Fe-FA ( VITAMIN) tab Take 1 tablet by mouth. etonogestrel (NEXPLANON) subdermal implant 68 mg 1 Each by SUBDERMAL route one time only for 1 dose. FEXOFENADINE HCL (PAMELLA ORAL) Take by mouth. diphenhydrAMINE (BENADRYL) 25 mg tablet Take 50 mg by mouth every 6 hours as needed for Itching/Rash or Cold/Allergy Symptoms. ibuprofen (MOTRIN) 200 mg tablet Take 200 mg by mouth every 6 hours as needed for Pain. No current facility-administered medications on file prior to visit. Review of Systems: GENERAL: Negative for: Fever or Chills HEENT: Negative for: Headache, Impaired Vision, Ringing in Ears, Nosebleeds NECK: Negative for: Swelling, Pain, Stiffness RESPIRATORY: Negative for: Cough, Shortness of breath, Wheezing GASTROINTESTINAL: Negative for: Heartburn, Constipation, Diarrhea, Blood in stool, Vomiting. ++ nausea MUSCULOSKELETAL: Negative for: Muscle or joint pain, stiffness, Joint swelling NEUROLOGIC/PSYCHIATRIC: Negative for: Weakness, Paralysis, Numbness, Tingling, Tremor, Anxiety, Depression, Memory loss SKIN: some rashes on occsaion- nickel allergey GENITOURINARY: Negative for: vaginal itching, vaginal discharge, hematuria or dysuria PHYSICAL EXAM: LMP 09/06/2017 GENERAL: pleasant female in no apparent distress DERMATOLOGY: Normal, without lesions, non-icteric and non-hirsute NECK: Supple, full range of motion, no adenopathy and thyroid normal BREAST: soft, non-tender, symmetric, no dominant mass, normal nipple-areolar complex, no lymphadenopathy and no nipple discharge ABDOMEN: soft, non-tender and no masses NEURO: alert and oriented x3,exam grossly non-focal PELVIS: External genitalia normal without lesions. Perineal body intact. Cervix closed. Uterus 7 week size. No adnexal masses or tenderness. Clinical Pelvimetry: Pelvimetry clinically assessed as adequate Limited OB ultrasound exam: single intrauterine and positive cardiac activity ASSESSMENT: 21 year old at 7.0 wks gestational age PLAN: 1) Patient oriented to practice. Discussed nutrition, folic acid supplementation, dietary guidelines, exercise, smoking, alcohol, caffeine, and drug use. Discussed routine OB labs including STD/HIV. Discussed aneuploidy screening options including serum screening and nuchal translucency. 2) NT ordered 3) pap and GC/Chlamydia were just done in 08/2017 Follow up in 4 weeks or sooner prn. Elsie Nunn MD CNNURSE Observed: 11/03/2017 Status: COMPLETED Source: [place] 9:30 AM [facility] REPOSITORY Nurse Visit (WOOB) GIDEON BALL Morales ([id number]) 1995 F [place] Date Time Provider Department 11/03/17 9:30 AM NURSE [facility] BEATA PATHAK During your visit today, we recorded the following information about you: Last Period 09/06/17 Artur Guerrero RN 11/03/2017 10:01 AM Signed SEQUENTIAL SCREENINGS The [facility] offers sequential screenings for women who are interested in screenings for chromosomal abnormalities and certain defects during a . The sequential screen combines ultrasound and blood tests to determine the risk of chromosomal abnormalities, including Down's Syndrome (Trisomy 21) and Trisomy 18, as well as open neural tube defects including spina bifida. Ultrasound examination is performed between 11 weeks and 13 weeks gestational age. Blood tests are drawn after the ultrasound and again later in the between 15 and 21 weeks gestational age. Please let your physician know if you are interested in this testing. It will require an appointment with our power technician. This is not an ultrasound performed by a physician in our office during a routine visit. SIGNS AND SYMPTOMS OF LABOR 1. Contractions every 10 minutes or more often 2. Clear, pink, or brownish fluid (water) leaking from vagina 3. Feeling that baby is pushing down, pressure 4. Low, dull backache 5. Cramps that feel like a period 6. Cramps with or without diarrhea If you notice any of the above symptoms, contact our office at [phone] and ask to speak with a nurse. After hours, you can call doctors registry at [phone] OR call [facility] at [phone] and ask to have the doctor retail parts professional paged. If you consider this an emergency, dial [phone] or go to your nearest emergency department. Cord-Blood Banking Up until recently, the umbilical cord--along with the blood that remained in it after a baby was born and the cord cut--was simply discarded by the hospital. Then, in the late 1980s, researchers discovered that cord blood possessed unusual properties that made it useful in the treatment of patients with some cancers and other illnesses. While the actual process of collecting cord blood is straightforward, many parents are not even aware that this option now exists, much less familiar with all the issues involved. The case for saving your baby's cord blood The blood running back and forth between your baby and the placenta is full of immature cells called stem cells. Unlike embryonic stem cells, which have the ability to develop into any type of body cell, cord-blood stem cells already are locked into a certain, vital function: making all the different components of the blood, such as platelets, white blood cells, and red blood cells-serving, in effect, like bone marrow. When transfused into a patient whose own blood cells have faulty genetic coding or have been destroyed by chemotherapy or other cancer treatments, the cord-blood cells can implant themselves in the bone marrow and generate legions of new, healthy cells. These days, cord-blood transplants most commonly are used in cancer patients when a donor can't be found for a bone-marrow transplant. The treatment is particularly effective in young patients-the [facility] Cord Blood Bank reports a 70 percent success rate in children, but only 20 to 40 percent in adults. Researchers envision improving those odds and see many future applications as well, such as curing sickle cell disease and other blood-related genetic illnesses. So there is a possibility that your child, or someone else, may need these super-healthy and versatile cells one day. The drawbacks Aside from not knowing about this medical option, the main reason most people do not save their baby's stem cells is cost. In a private blood bank, the initial costs run from $275 to $1,500. Most also charge a yearly storage fee of $50 to $95. The advantage of using a private bank is that your sample is saved for only you to use. An alternative to private banking Public cord-blood jesus are an alternative. These cost no money to use, but your sample is not specifically saved for you. Another person with a more immediate need may use it. If the time should come that you need stem cells, yours may still be available, or you may use donations from other people without charge. You also can direct your sample to go to a relative with an immediate need if the blood type matches. Anyone else needing to use stem cells from a public bank who has not been a donor must pay for it, sometimes tens of thousands of dollars. Will my family benefit from saving stem cells? Right now, situations in which stem cells would be helpful are quite rare. As mentioned earlier, stem-cell transplants are most commonly used for rare genetic conditions and for some types of cancer, including leukemia and lymphoma. And even with these present uses, many questions remain. In cancer treatment, for example, some researchers are concerned about the wisdom of transplanting back into the child the same cells that already showed a propensity to become malignant. Doctors also aren't sure if the number of cells taken at the time of would be enough to treat a full-grown 16-year-old. It is also not completely clear how active the cells would be after years of being stored. The treatment is so new and rare, we just don't have the data yet to resolve these important issues. What do the experts say? The [employer] encourages philanthropic blood banking in public jesus, but only for families with a current or potential need. Blood-bank proponents encourage any kind of banking, pointing out that research is getting closer and closer to many diverse, live-saving applications. How do I decide? Each family must weigh the pros and cons for themselves. Some families say that any cost is worth their peace of mind. Others say that in the face of uncertainty about the effectiveness of the treatment, they will use their resources elsewhere. Some choose the middle ground of donating publicly, knowing that their sample might benefit another family, if not themselves. For more information, ask your doctor or nurse, and be sure to check out our article on the technical aspects of cord-blood banking. Technical Aspects of Cord-Blood Banking If you are interested in storing your baby's umbilical-cord blood because of its possible use in emerging medical treatments, you must make arrangements with a blood bank before your child is born. The collection procedure is quite simple: After delivery of the baby, the umbilical cord is clamped and cut in the usual way. The blood that remains in the umbilical-cord vessels is then collected in sterile containers. The blood may be removed from the cord with a large needle or allowed to flow freely, depending on the company's collection system. The containers may look like large test tubes or like the plastic bags used in a blood bank. It does not cause the mother or the baby any pain to collect the blood, and no blood is taken that the baby needs at the moment. The nurse, sales account representative, or physician will then label the samples, check them over with you, and package them for a special pickup arranged with a commercial carrier. When the blood arrives at the blood-bank facility, it is processed and the parents are notified. It is then kept in an advanced storage system for years. How do I know that my sample is safe? Power outages and bankruptcies potentially could threaten any organization, but so far none have been reported. It is to be hoped that the scientists in these jesus would arrange for safe transfer to another facility if the need arose. YOU MUST MAKE ARRANGEMENTS AHEAD OF TIME! Public cord-blood jesus--DONATION: [employer] [phone] [facility]'s Placental Blood Program, [facility] Umbilical Cord Blood Bank, Private cord-blood jesus--SAVING FOR YOUR OWN USE: [employer], (I think this is the least expensive) [employer] [phone] [employer], ([phone]) [employer] [place] [facility], [phone] Cells, [phone] [place] [facility], Cord Blood Registry, ([phone]) [employer], An Internet search may provide you with additional listings. Referring Provider: SELF [200] Allergies As of Date: 11/03/2017 Noted Allergy Reaction NICKEL 05/13/2017 2 - Rash environmental [Other] 12/23/2006 Date Reviewed: 11/03/2017 Reviewed by: Artur Guerrero RN - Fully Assessed Reason for Visit: Care [86] Cmt: Pre-New OB Primary Visit Diagnosis:Supervision of normal first , antepartum [Z34.00] Other Visit Diagnoses:Unplanned [Z34.90] Nausea/vomiting in [O21.9] History of alcohol abuse [Z87.898] Maternal tobacco use in first trimester [O99.331] Family history of congenital heart defect [Z82.79] Patient requested diagnostic testing [Z01.89] Order(s):NOEMI PT ED SPOOLING MACHINE OPERATOR [[id number]] Order #: [id number]: 1 FUTURE NOEMI PT ED ANESTHESIA [[id number]] Order #: [id number]: 1 FUTURE NOEMI PT ED SPOOLING MACHINE OPERATOR [] Order #: [id number]: 1 FUTURE NOEMI WHAT TO EXPECT DURING YOUR HOSPITAL STAY [] Order #: [id number]: 1 FUTURE NOEMI PT ED SPOOLING MACHINE OPERATOR [] Order #: [id number]: 1 FUTURE NOEMI PT ED SPOOLING MACHINE OPERATOR [] Order #: [id number]: 1 FUTURE NOEMI PT ED SPOOLING MACHINE OPERATOR [] Order #: [id number]: 1 FUTURE NOEMI PT ED SPOOLING MACHINE OPERATOR [] Order #: [id number]. #:[id number]: 1 NOEMI PT ED ANESTHESIA [[id number]] Order #: [id number]. #:[id number]: 1 NOEMI PT ED SPOOLING MACHINE OPERATOR [] Order #: [id number]. #:[id number]: 1 NOEMI WHAT TO EXPECT DURING YOUR HOSPITAL STAY [] Order #: [id number]. #:[id number]: 1 NOEMI PT ED SPOOLING MACHINE OPERATOR [] Order #: [id number]. #:[id number]: 1 NOEMI PT ED SPOOLING MACHINE OPERATOR [] Order #: [id number]. #:[id number]: 1 NOEMI PT ED SPOOLING MACHINE OPERATOR [] Order #: [id number]. #:[id number]: 1 Prescriptions as of 11/03/2017 Sig: VITAMIN,CALCIUM,MINE* Take 1 tablet by mouth. DIPHENHYDRAMINE 25 MG TABLET Take 50 mg by mouth every 6 h* ETONOGESTREL 68 MG SUBDERMAL * 1 Each by SUBDERMAL route one* PAMELLA ORAL Take by mouth. IBUPROFEN 200 MG TABLET Take 200 mg by mouth every 6 * Medication notes this encounter ETONOGESTREL 68 MG SUBDERMAL IMPLANT >> Artur Guerrero RN 11/03/2017 9:44 AM >> ARTUR GUERRERO RN FriNov 03, 2017 9:44 AM removed by PPH 10/11/2017 PAMELLA ORAL >> Artur Guerrero RN 11/03/2017 9:45 AM >> ARTUR GUERRERO RN FriNov 03, 2017 9:45 AM Pt no longer using Problem List As Of Date 11/03/2017 Noted Resolved Closed fracture of one or more phalanges of makayla*INVALID FOR*07/22/2012 Irritated//Inflamed Seborrheic Keratosis [L82.0]INVALID FOR* Viral warts, unspecified [B07.9] INVALID FOR*07/22/2012 Melanocytic nevus of L upper extremity: L shoul*INVALID FOR* Acne [L70.9] INVALID FOR* Left-sided weakness [R53.1] INVALID FOR* Unplanned [Z34.90] INVALID FOR* More... Nausea/vomiting in [O21.9] INVALID FOR* More... History of alcohol abuse [Z87.898] INVALID FOR* More... Maternal tobacco use in first trimester [O99.33*INVALID FOR* More... Family history of congenital heart defect [Z82.*INVALID FOR* More... Patient requested diagnostic testing [Z01.89] INVALID FOR* More... Other instructions from your clinician: SEQUENTIAL SCREENINGS The [facility] offers sequential screenings for women who are interested in screenings for chromosomal abnormalities and certain defects during a . The sequential screen combines ultrasound and blood tests to determine the risk of chromosomal abnormalities, including Down's Syndrome (Trisomy 21) and Trisomy 18, as well as open neural tube defects including spina bifida. Ultrasound examination is performed between 11 weeks and 13 weeks gestational age. Blood tests are drawn after the ultrasound and again later in the between 15 and 21 weeks gestational age. Please let your physician know if you are interested in this testing. It will require an appointment with our power technician. This is not an ultrasound performed by a physician in our office during a routine visit. SIGNS AND SYMPTOMS OF LABOR 1. Contractions every 10 minutes or more often 2. Clear, pink, or brownish fluid (water) leaking from vagina 3. Feeling that baby is pushing down, pressure 4. Low, dull backache 5. Cramps that feel like a period 6. Cramps with or without diarrhea If you notice any of the above symptoms, contact our office at [phone] and ask to speak with a nurse. After hours, you can call doctors registry at [phone] OR call [facility] at [phone] and ask to have the doctor retail parts professional paged. If you consider this an emergency, dial [phone]--1 or go to your nearest emergency department. Cord-Blood Banking Up until recently, the umbilical cord--along with the blood that remained in it after a baby was born and the cord cut--was simply discarded by the hospital. Then, in the late , researchers discovered that cord blood possessed unusual properties that made it useful in the treatment of patients with some cancers and other illnesses. While the actual process of collecting cord blood is straightforward, many parents are not even aware that this option now exists, much less familiar with all the issues involved. The case for saving your baby's cord blood The blood running back and forth between your baby and the placenta is full of immature cells called stem cells. Unlike embryonic stem cells, which have the ability to develop into any type of body cell, cord-blood stem cells already are locked into a certain, vital function: making all the different components of the blood, such as platelets, white blood cells, and red blood cells-serving, in effect, like bone marrow. When transfused into a patient whose own blood cells have faulty genetic coding or have been destroyed by chemotherapy or other cancer treatments, the cord-blood cells can implant themselves in the bone marrow and generate legions of new, healthy cells. These days, cord-blood transplants most commonly are used in cancer patients when a donor can't be found for a bone-marrow transplant. The treatment is particularly effective in young patients- the [facility] Cord Blood Bank reports a 70 percent success rate in children, but only 20 to 40 percent in adults. Researchers envision improving those odds and see many future applications as well, such as curing sickle cell disease and other blood-related genetic illnesses. So there is a possibility that your child, or someone else, may need these super-healthy and versatile cells one day. The drawbacks Aside from not knowing about this medical option, the main reason most people do not save their baby's stem cells is cost. In a private blood bank, the initial costs run from $275 to $1,500. Most also charge a yearly storage fee of $50 to $95. The advantage of using a private bank is that your sample is saved for only you to use. An alternative to private banking Public cord-blood jesus are an alternative. These cost no money to use, but your sample is not specifically saved for you. Another person with a more immediate need may use it. If the time should come that you need stem cells, yours may still be available, or you may use donations from other people without charge. You also can direct your sample to go to a relative with an immediate need if the blood type matches. Anyone else needing to use stem cells from a public bank who has not been a donor must pay for it, sometimes tens of thousands of dollars. Will my family benefit from saving stem cells? Right now, situations in which stem cells would be helpful are quite rare. As mentioned earlier, stem-cell transplants are most commonly used for rare genetic conditions and for some types of cancer, including leukemia and lymphoma. And even with these present uses, many questions remain. In cancer treatment, for example, some researchers are concerned about the wisdom of transplanting back into the child the same cells that already showed a propensity to become malignant. Doctors also aren't sure if the number of cells taken at the time of would be enough to treat a full-grown 16-year-old. It is also not completely clear how active the cells would be after years of being stored. The treatment is so new and rare, we just don't have the data yet to resolve these important issues. What do the experts say? The [employer] encourages philanthropic blood banking in public jesus, but only for families with a current or potential need. Blood-bank proponents encourage any kind of banking, pointing out that research is getting closer and closer to many diverse, live-saving applications. How do I decide? Each family must weigh the pros and cons for themselves. Some families say that any cost is worth their peace of mind. Others say that in the face of uncertainty about the effectiveness of the treatment, they will use their resources elsewhere. Some choose the middle ground of donating publicly, knowing that their sample might benefit another family, if not themselves. For more information, ask your doctor or nurse, and be sure to check out our article on the technical aspects of cord-blood banking. Technical Aspects of Cord-Blood Banking If you are interested in storing your baby's umbilical- cord blood because of its possible use in emerging medical treatments, you must make arrangements with a blood bank before your child is born. The collection procedure is quite simple: After delivery of the baby, the umbilical cord is clamped and cut in the usual way. The blood that remains in the umbilical-cord vessels is then collected in sterile containers. The blood may be removed from the cord with a large needle or allowed to flow freely, depending on the company's collection system. The containers may look like large test tubes or like the plastic bags used in a blood bank. It does not cause the mother or the baby any pain to collect the blood, and no blood is taken that the baby needs at the moment. The nurse, sales account representative, or physician will then label the samples, check them over with you, and package them for a special pickup arranged with a commercial carrier. When the blood arrives at the blood- bank facility, it is processed and the parents are notified. It is then kept in an advanced storage system for years. How do I know that my sample is safe? Power outages and bankruptcies potentially could threaten any organization, but so far none have been reported. It is to be hoped that the scientists in these jesus would arrange for safe transfer to another facility if the need arose. YOU MUST MAKE ARRANGEMENTS AHEAD OF TIME! Public cord-blood jesus--DONATION: [employer] [phone] [facility]'s Placental Blood Program, [facility] Umbilical Cord Blood Bank, Private cord-blood jesus--SAVING FOR YOUR OWN USE: [employer], (I think this is the least expensive) [employer] [phone] [employer], ([phone]) [employer] [place] [facility], [phone]-CORD Cells, [phone] [place] [facility], Cord Blood Registry, (165) [facility], An Internet search may provide you with additional listings. Disposition: Return for New OB with Dr Archuleta. Follow-up and Disposition History Recorded Letter Text Dear Gideon Ball: How to activate your [facility] [employer] Account 1. Visit the [employer] Signup page at [email or web address] 2. Identify yourself using your one-time use activation code: [email or web address] 3. Follow the on-screen prompts to choose your own secure username and password The following information will be necessary to access your account for the first time: Information needed for sign-up: Your custom activation code used one-time only for the initial account set-up. Your date of The last 4 digits of your social security number What to do next: Fill in the requested information on the Identify Yourself Form at [email or web address] , click Next. Create your login and password, choose a [employer] ID and password that will be easy for you to use, but impossible for anyone else to guess. Pick a security question that will assist you in the event you forget your password the next time you log-on. If you have difficulty activating your account, please call our [employer] helpline at [phone] or toll free at . We hope you enjoy using [employer]! Kindest Regards, [facility] [employer] Team Encounter Status:Closed by ARTUR GUERRERO RN on 11/03/17 PROGRESS Observed: 09/29/2017 Status: COMPLETED Source: [place] 2:08 PM [facility] REPOSITORY HNO ID: [id number] Author: Shantel Wheatley Psr Service: (none) Author Type: (none) Type: Progress Notes Filed: 09/29/2017 2:08 PM Note Text: pap logged, letter sent. Shantel Wheatley Psr PROGRESS Observed: 09/26/2017 Status: COMPLETED Source: [place] 2:08 PM [facility] REPOSITORY HNO ID: [id number] Author: Mckayla Monreal Service: (none) Author Type: Nurse Practitioner Type: Progress Notes Filed: 09/26/2017 2:34 PM Note Text: Gideon Ball is a 21 year old female who presents for Nexplanon insertion. Patient's last menstrual period was 09/06/2017. VITALS: LMP 09/06/2017 test: negative Nexplanon lot #: [id number] Exp date: 11/2019 UNIVERSAL PROTOCOL / SAFETY CHECKLIST Procedure to be performed: Nexplanon insertion Sign in Communication: Completed Time Out: Team Confirms the Correct Patient, Correct Procedure, Correct Site and Site Marking, Correct Position (if applicable), Prep and Dry Time (if applicable). Time: 1415 Affirmation of Time Out: YES Sign Out Discussion: Completed TECHNIQUE: Patient placed in supine position with left) bent at the elbow and placed over the head. Skin cleansed with betadine. 2mL of 1% lidocaine with 1:100,000 epi injected subQ along insertion site. Nexplanon marie inserted under sterile technique. The marie was palpable under the skin after insertion and the notch visible on the trochar after insertion. Steristrips and sterile pressure dressing applied. AANDP: Nexplanon inserted without complications. Patient user card was filled out and given to the patient. The patient was instructed to remove the dressing after 24 hours. Advised to use backup contraception for 7 days. Follow up in 1 year MCKAYLA MONREAL CNP CNOV Observed: 09/26/2017 Status: COMPLETED Source: [place] 2:00 PM [facility] REPOSITORY Office Visit (WOOB) GIDEON BALL ([id number]) 1995 F MONIKA Date Time Provider Department 09/26/17 2:00 PM MCKAYLA MONREAL) WOOB During your visit today, we recorded the following information about you: Blood pressure Weight 112/64 87.5 kg MCKAYLA MONREAL CNP 09/26/2017 2:34 PM Signed Gideon Ball is a 21 year old female who presents for Nexplanon insertion. Patient's last menstrual period was 09/06/2017. VITALS: LMP 09/06/2017 test: negative Nexplanon lot #: [id number] Exp date: 11/2019 UNIVERSAL PROTOCOL / SAFETY CHECKLIST Procedure to be performed: Nexplanon insertion Sign in Communication: Completed Time Out: Team Confirms the Correct Patient, Correct Procedure, Correct Site and Site Marking, Correct Position (if applicable), Prep and Dry Time (if applicable). Time: 1415 Affirmation of Time Out: YES Sign Out Discussion: Completed TECHNIQUE: Patient placed in supine position with left) bent at the elbow and placed over the head. Skin cleansed with betadine. 2mL of 1% lidocaine with 1:100,000 epi injected subQ along insertion site. Nexplanon marie inserted under sterile technique. The marie was palpable under the skin after insertion and the notch visible on the trochar after insertion. Steristrips and sterile pressure dressing applied. AANDamp;P: Nexplanon inserted without complications. Patient user card was filled out and given to the patient. The patient was instructed to remove the dressing after 24 hours. Advised to use backup contraception for 7 days. Follow up in 1 year ROBIN GONZALEZ Ma 09/26/2017 2:08 PM Signed NEXPLANON PATIENT EDUCATION You may remove dressing in 24 hours. Expect some bruising around insertion site. You may take over the counter pain medication (i.e. Tylenol, motrin, advil, etc) if you have discomfort. Call your provider with excessive bruising or pain. Continue to use condoms for STD prevention. You should use backup contraception for 7 days to prevent . Referring Provider: MCKAYLA MONREAL (ROBIN) [[id number]] Allergies As of Date: 09/26/2017 Noted Allergy Reaction NICKEL 05/13/2017 2 - Rash environmental [Other] 12/23/2006 Date Reviewed: 09/26/2017 Reviewed by: Mckayla Brody) Mirza - Fully Assessed Reason for Visit: Contraception [26] Primary Visit Diagnosis:Insertion of implantable subdermal contraceptive [Z30.017] Order(s):HCG QUAL UR B/O [[id number]] Order #: [id number] NEXPLANON INSERTION [[id number]] Order #: [id number] etonogestrel (NEXPLANON) subdermal implant 68 mg1 Each by SUBDERMAL route one time only for 1 dose.Disp: 1 EachRfl: 0 Prescriptions as of 09/26/2017 Sig: PAMELLA ORAL Take by mouth. ETONOGESTREL 68 MG SUBDERMAL * 1 Each by SUBDERMAL route one* DIPHENHYDRAMINE 25 MG TABLET Take 50 mg by mouth every 6 h* IBUPROFEN 200 MG TABLET Take 200 mg by mouth every 6 * Problem List As Of Date 09/26/2017 Noted Resolved Closed fracture of one or more phalanges of makayla*INVALID FOR*07/22/2012 Irritated//Inflamed Seborrheic Keratosis [L82.0]INVALID FOR* Viral warts, unspecified [B07.9] INVALID FOR*07/22/2012 Melanocytic nevus of L upper extremity: L shoul*INVALID FOR* Acne [L70.9] INVALID FOR* Left-sided weakness [R53.1] INVALID FOR* Other instructions from your clinician: NEXPLANON PATIENT EDUCATION You may remove dressing in 24 hours. Expect some bruising around insertion site. You may take over the counter pain medication (i.e. Tylenol, motrin, advil, etc) if you have discomfort. Call your provider with excessive bruising or pain. Continue to use condoms for STD prevention. You should use backup contraception for 7 days to prevent . Prescriptions ordered this encounter Disp Refills Start End ETONOGESTREL 68 MG SUBDERMAL IMPLANT 1 Ea* 0 09/26/2017 09/26/2017 Class: Back Office Route: SDRM Si Each by SUBDERMAL route one time only for 1 dose. Encounter Status:Closed by MCKAYLA MONREAL on 09/26/17 PROGRESS Observed: 09/17/2017 Status: COMPLETED Source: [place] 9:22 AM [facility] O ID: [id number] Author: Lavonne Marquez Ma Service: (none) Author Type: (none) Type: Progress Notes Filed: 09/17/2017 1:22 PM Note Text: Patient identified by name and date of . Gideon Ball is here for her HPV 9 vaccination, injection # three of the series. Patient ?No Gardasil injection was given without incident. See immunizations for details of immunizations administered today. VIS sheet provided: Yes Patient advised to follow up in Series completed Provider Mckayla Monreal CNP was present in office at time of injection. GC/CHLAMYDIA AMPLIF Collected: 09/17/2017 Status: F Source: [place] 9:06 AM [facility] REPOSITORY TYPE CODE TESTS RESULT OUT OF REFERENCE UNITS RANGE LAB GCCTSR GC/Chlam Amp [facility] Source LAB GCAMPL GC Negative Amplification for Neisseria gonorrhoeae by amplification. LAB CLAMPL Chlamydia Negative Amplif for Chlamydia trachomatis by amplification. Performed By: #### GCCT #### [facility] [address] [place], [place] [address] CYTOLOGY Observed: 09/17/2017 Status: F Source: [place] 9:06 AM [facility] REPOSITORY Specimen originated from [facility] Specimen #: [id number] Submitting Physician: MCKAYLA MONREAL SPECIMEN SUBMITTED A: CERVICAL, SCREENING, FLUID FINAL DIAGNOSIS A. CERVICAL, SCREENING, FLUID Satisfactory for interpretation. Negative for intraepithelial lesion or malignancy. This specimen has been analyzed by the ThinPrep Imaging System, an automated imaging and review system, which assists the laboratory in evaluating cells on ThinPrep Pap tests. Following automated imaging, selected saldviar from every slide are reviewed by a toolmaker helper. PATRICIA ORTEGA M.D. (Electronic Signature) CLINICAL DATA ROUTINE EXAM, HPV Testing: Yes, Reflex HPV for ASCUS Date of Last Menstrual Period: 09/06/17 Additional Testing: Reflex HPV testing for ASCUS STAINS A: CERVICAL, SCREENING, FLUID THIN PREP CLINICAL PHARMACY COORDINATOR Date of Report: 09/29/2017 Date of Procedure: 09/17/2017 Date of Receipt: 09/18/2017 Submitted by: MCKAYLA MONREAL Location: [facility] Diagnostic interpretation performed at [facility], [address], [facility] [address]. The Pap Smear is a screening test for cervical cancer. False negative results occur with all screening tests, emphasizing the need for rescreening at recommended intervals, and clinical correlation. CNOV Observed: 09/17/2017 Status: COMPLETED Source: [place] 8:45 AM [facility] REPOSITORY Office Visit (WOOB) LIZZYGIDEON Morales ([id number]) 1995 F MONIKA Date Time Provider Department 09/17/17 8:45 AM MCKAYLA MONREAL (ROBIN) WOOB During your visit today, we recorded the following information about you: Blood pressure Weight Height Last Period 120/78 86.7 kg 1.676 m 09/06/17 MCKAYLA MONREAL CNP 09/17/2017 1:22 PM Signed Gideon Nielsen Lizzy is a 21 year old No obstetric history on file. who presents for her annual gynecologic exam without complaints. Menses: cycles every 25-28 days and 4-5 days of flow. Contraception: condoms HPV vaccine: Yes 2 doses Last pap smear: never Sexually active: Yes Patient concerns for STD exposure: No. @OB(ANDlt;SYNTAXANDgt; error)@ PAST MEDICAL HISTORY Diagnosis Date - Acne 02/20/2011 - Fracture of metatarsal of right foot, closed fall fo 2008 resolved, right great toe - Irritated//Inflamed Seborrheic Keratosis 09/18/2010 - Melanocytic nevus of L upper extremity: L shoulder 09/18/2010 PAST SURGICAL HISTORY Procedure Laterality Date - NONE FAMILY HISTORY Problem Relation Age of Onset - Alcohol/Drug Brother - Alcohol/Drug Sister - Genitourinary () Mother Kidney stones - Alcohol/Drug Mother - hepatitis c [OTHER] Mother - Alcohol/Drug Father - Heart Paternal Grandfather , CABG triple - Hypertension Paternal Grandfather - Coronary Artery Disease Paternal Grandmother stroke-68, carotid arteries - Hypertension Paternal Grandmother - Diabetes Maternal Grandfather - Breast Cancer Maternal Grandmother SOCIAL HISTORY Social History Substance Use Topics - Smoking status: Current Every Day Smoker Packs/day: 0.50 - Smokeless tobacco: Never Used - Alcohol use No REVIEW OF SYSTEMS Abdomen: No bloating, early satiety, indigestion, or increased flatulence. No abdominal pain, nausea, vomiting, diarrhea, or constipation. Bladder: No dysuria, gross hematuria, urinary frequency, urinary urgency, or incontinence. Breast: No breast lumps, nipple d/c, overlying skin changes, redness or skin retraction. Allergies and current medication updated:Yes EXAM: There were no vitals taken for this visit. GENERAL: pleasant, female in no apparent distress HEENT: Normocephalic, atraumatic, mucus membranes moist and no lesions NECK: Supple, full range of motion, no adenopathy and thyroid normal DERMATOLOGY: Normal, without lesions, non-icteric and non-hirsute BREAST: soft, non-tender, symmetric, no dominant mass, normal nipple-areolar complex, no lymphadenopathy and no nipple discharge CHEST: Normal inspiratory effort ABDOMEN: soft, non-tender and no masses PELVIC: external genitalia normal, normal Bartholin's glands, urethra, Cayuga's glands, no vulvar lesions, no cervical lesions, good vaginal support, physiologic discharge present, normal appearing perineal body and perianal region, well estrogenized BIMANUAL: uterus normal size, shape and consistency, no adnexal masses, non-tender and no cervical motion tenderness NEURO: alert and oriented x3,exam grossly non-focal EXTREMITIES: normal ASSESSMENT/PLAN: 1) Health maintenance: Nutrition, exercise, and routine health maintenance exams reviewed. HPV vaccine Has recieved two doses. 2) Contraception: condoms. Contraceptive options reviewed and information provided. 3) STD screening: Accepted STD check for Gonorrhea and Chlamydia. 4) Follow up one year or sooner as needed. 5) Pt wanting a Nexplanon with submit to insurance ROBIN GONZALEZ Ma 09/17/2017 1:22 PM Signed Patient identified by name and date of . Gideon Ball is here for her HPV 9 vaccination, injection # three of the series. Patient ?No Gardasil injection was given without incident. See immunizations for details of immunizations administered today. VIS sheet provided: Yes Patient advised to follow up in Series completed Provider Mckayla Monreal CNP was present in office at time of injection. Lavonne Marquez Ma 09/17/2017 9:22 AM Signed Gardasil Gardasil is a vaccine to protect against Human Papillomavirus (HPV) types 6, 11, 16 and 18. These viruses cause cancer and precancerous lesions on the cervix (opening between vagina and uterus), in the vagina and on the vulva (skin around the outside of the vagina) as well as genital warts. The vaccine cannot cause these diseases and cannot treat them if already present. Gardasil works best if given before contact with HPV. Most people are exposed to HPV soon after starting sexual activity. The vaccine is recommended between the ages of 9 and 26. Gardasil does not protect against all strains of HPV. Women who receive the vaccine still need to have annual pelvic exams and cervical cancer screening with the pap smear. You should ask your doctor if Gardasil is right for you if you have a weakened immune system, a bleeding disorder, plan to become soon or have a current illness causing fever. Gardasil is not recommended for women. You should be sure your doctor is aware of any allergies you have and all medications and herbal supplements you take. Gardasil is given in 3 doses with the second dose 2 months after the first injection and the last dose 6 months after the first injection. Common side effects include pain, redness, itching and swelling at the injection site, nausea, fever, dizziness and fainting. Rare but potentially serious reactions have been reported. These include allergic reaction, swollen glands, joint and muscle pain, weakness and Guillain-Tucson syndrome. Shantel Wheatley Psr 09/29/2017 2:08 PM Signed pap logged, letter sent. Shantel Wheatley Psr Referring Provider: SELF [200] Allergies As of Date: 09/17/2017 Noted Allergy Reaction NICKEL 05/13/2017 2 - Rash environmental [Other] 12/23/2006 Date Reviewed: 09/17/2017 Reviewed by: Mckayla Brody) Mirza - Fully Assessed Reason for Visit: Yearly Exam [187] Gardasil Injection [1654] Reason For Visit History Recorded Primary Visit Diagnosis:Encounter for gynecological examination without abnormal finding [Z01.419] Other Visit Diagnoses:Screening for malignant neoplasm of cervix [Z12.4] Screen for STD (sexually transmitted disease) [Z11.3] Need for prophylactic vaccination/inoculation against viral disease [Z23] Order(s):PAP FLUID CERVICAL SCREENING [4153434] Order #: [id number]. #:[id number] GC/CHLAMYDIA DNA DET [SQGCCAMP] Order #: [id number]. #:[id number] THER/PROPH/DIAG INJ, SC/IM [03091RHT] Order #: [id number] HUMAN PAPILLOMAVIRUS 9-VALENT HPV IM [72513HWD] Order #: [id number] Prescriptions as of 09/17/2017 Sig: PAMELLA ORAL Take by mouth. DIPHENHYDRAMINE 25 MG TABLET Take 50 mg by mouth every 6 h* IBUPROFEN 200 MG TABLET Take 200 mg by mouth every 6 * Problem List As Of Date 09/17/2017 Noted Resolved Closed fracture of one or more phalanges of makayla*INVALID FOR*07/22/2012 Irritated//Inflamed Seborrheic Keratosis [L82.0]INVALID FOR* Viral warts, unspecified [B07.9] INVALID FOR*07/22/2012 Melanocytic nevus of L upper extremity: L shoul*INVALID FOR* Acne [L70.9] INVALID FOR* Left-sided weakness [R53.1] INVALID FOR* Other instructions from your clinician: Gardasil Gardasil is a vaccine to protect against Human Papillomavirus (HPV) types 6, 11, 16 and 18. These viruses cause cancer and precancerous lesions on the cervix (opening between vagina and uterus), in the vagina and on the vulva (skin around the outside of the vagina) as well as genital warts. The vaccine cannot cause these diseases and cannot treat them if already present. Gardasil works best if given before contact with HPV. Most people are exposed to HPV soon after starting sexual activity. The vaccine is recommended between the ages of 9 and 26. Gardasil does not protect against all strains of HPV. Women who receive the vaccine still need to have annual pelvic exams and cervical cancer screening with the pap smear. You should ask your doctor if Gardasil is right for you if you have a weakened immune system, a bleeding disorder, plan to become soon or have a current illness causing fever. Gardasil is not recommended for women. You should be sure your doctor is aware of any allergies you have and all medications and herbal supplements you take. Gardasil is given in 3 doses with the second dose 2 months after the first injection and the last dose 6 months after the first injection. Common side effects include pain, redness, itching and swelling at the injection site, nausea, fever, dizziness and fainting. Rare but potentially serious reactions have been reported. These include allergic reaction, swollen glands, joint and muscle pain, weakness and Guillain-Tucson syndrome. Medications Discontinued During This Encounter medroxyPROGESTERone (DEPO-PROVERA) 1* 1 Sy* 5 01/18/2015 09/17/2017 Route: INTRAMUSCULAR Sig: Inject 1 mL intramuscularly every 12 weeks. Disc: Reason for discontinue is not on file. Disposition: Return in about 1 year (around 09/17/2018) for Routine CLINICAL PHARMACY COORDINATOR exam. Follow-up and Disposition History Recorded Letter Text [facility] [address] [place] [phone] Gideon Ball [address] [place], [place] [address] 09/29/2017 [facility]: [id number] Dear Gideon, We are pleased to inform you that your recent Pap Test was within normal limits. Because Pap tests are so effective in the early detection of cervical cancer, you are encouraged to continue having the test at regular intervals. You will be due for a CLINICAL PHARMACY COORDINATOR annual exam after this date 09/17/2018. If you have any questions regarding the above information, do not hesitate to call our office at between the hours of 8:00 a.m. and 5:00 p.m. Sincerely, Mckayla Monreal CNP Encounter Status:Closed by MCKAYLA MONREAL on 09/17/17 PROGRESS Observed: 09/17/2017 Status: COMPLETED Source: [place] 8:44 AM [facility] REPOSITORY O ID: [id number] Author: Mckayla Monreal Service: (none) Author Type: Nurse Practitioner Type: Progress Notes Filed: 09/17/2017 1:22 PM Note Text: Gideon Ball is a 21 year old No obstetric history on file. who presents for her annual gynecologic exam without complaints. Menses: cycles every 25-28 days and 4-5 days of flow. Contraception: condoms HPV vaccine: Yes 2 doses Last pap smear: never Sexually active: Yes Patient concerns for STD exposure: No. @OB(<SYNTAX> error)@ PAST MEDICAL HISTORY Diagnosis Date - Acne 02/20/2011 - Fracture of metatarsal of right foot, closed fall fo 2009 resolved, right great toe - Irritated//Inflamed Seborrheic Keratosis 09/18/2010 - Melanocytic nevus of L upper extremity: L shoulder 09/18/2010 PAST SURGICAL HISTORY Procedure Laterality Date - NONE FAMILY HISTORY Problem Relation Age of Onset - Alcohol/Drug Brother - Alcohol/Drug Sister - Genitourinary () Mother Kidney stones - Alcohol/Drug Mother - hepatitis c [OTHER] Mother - Alcohol/Drug Father - Heart Paternal Grandfather , CABG triple - Hypertension Paternal Grandfather - Coronary Artery Disease Paternal Grandmother stroke-68, carotid arteries - Hypertension Paternal Grandmother - Diabetes Maternal Grandfather - Breast Cancer Maternal Grandmother SOCIAL HISTORY Social History Substance Use Topics - Smoking status: Current Every Day Smoker Packs/day: 0.50 - Smokeless tobacco: Never Used - Alcohol use No REVIEW OF SYSTEMS Abdomen: No bloating, early satiety, indigestion, or increased flatulence. No abdominal pain, nausea, vomiting, diarrhea, or constipation. Bladder: No dysuria, gross hematuria, urinary frequency, urinary urgency, or incontinence. Breast: No breast lumps, nipple d/c, overlying skin changes, redness or skin retraction. Allergies and current medication updated:Yes EXAM: There were no vitals taken for this visit. GENERAL: pleasant, female in no apparent distress HEENT: Normocephalic, atraumatic, mucus membranes moist and no lesions NECK: Supple, full range of motion, no adenopathy and thyroid normal DERMATOLOGY: Normal, without lesions, non-icteric and non-hirsute BREAST: soft, non-tender, symmetric, no dominant mass, normal nipple-areolar complex, no lymphadenopathy and no nipple discharge CHEST: Normal inspiratory effort ABDOMEN: soft, non-tender and no masses PELVIC: external genitalia normal, normal Bartholin's glands, urethra, Cayuga's glands, no vulvar lesions, no cervical lesions, good vaginal support, physiologic discharge present, normal appearing perineal body and perianal region, well estrogenized BIMANUAL: uterus normal size, shape and consistency, no adnexal masses, non-tender and no cervical motion tenderness NEURO: alert and oriented x3,exam grossly non-focal EXTREMITIES: normal ASSESSMENT/PLAN: 1) Health maintenance: Nutrition, exercise, and routine health maintenance exams reviewed. HPV vaccine Has recieved two doses. 2) Contraception: condoms. Contraceptive options reviewed and information provided. 3) STD screening: Accepted STD check for Gonorrhea and Chlamydia. 4) Follow up one year or sooner as needed. 5) Pt wanting a Nexplanon with submit to insurance MCKAYLA MONREAL CNP ALLERGIES ALLERGIES DATE TYPE / CODE NAME / CODE REACTION SEVERITY SOURCE 06/21/2018 Drug No Known Unknown Kelli Allergy/[id number]( Allergies/[address]) [id number]([facility]) Repository 05/13/2017 DRUG NICKEL RASH [facility] INGREDI/[id number]([facility] NOMED CT) Repository 12/23/2006 Miscellaneous OTHER [facility] Allergy/[id number]([facility] NOMED CT) Repository ENCOUNTERS ENCOUNTERS ADMIT/DISCHARGE ACCOUNT ADMITTING ENCOUNTER LOCATION SOURCE NUMBER CLASS 07/10/2018/07/14/20 [id number] Ambulatory [address] Repository 07/06/2018/07/07/20 [id number] Ambulatory [address] Repository 06/22/2018/06/26/20 [id number] [facility] Inpatient [facility] Girard [address], Elsie Encounter [facility] ing:WPRoom: Repository GI441Smm: 1 06/22/2018/06/23/20 [id number] Ambulatory [address] Repository 06/21/2018/06/21/20 [id number] Ambulatory [place] Kelli 18 [facility] ing:WPOUTRoom Repository : [id number] 06/17/2018/06/19/20 [id number] Ambulatory [address] Repository 06/12/2018/06/15/20 [id number] Ambulatory [address] Repository 06/04/2018/06/05/20 [id number] Ambulatory [address] Repository 05/28/2018/11/02 [id number] Ambulatory [facility] Repository 05/21/2018/05/22/20 [id number] Ambulatory [place] Repository 05/04/2018/05/05/20 [id number] Ambulatory [place] [facility] Repository 04/15/2018/04/16/20 [id number] Ambulatory [place] 18 [facility] Repository 04/01/2018/04/04/20 [id number] Ambulatory [place] 18 [facility] Repository 03/18/2018/03/18/20 [id number] Ambulatory [place] 18 [facility] Repository 03/18/2018/03/19/20 [id number] Ambulatory [place] 18 [facility] Repository 03/15/2018/03/15/20 [id number] Emergency [facility]ard Girard [address] [place] [address] ing:ED Repository 02/16/2018/02/18/20 [id number] Ambulatory [place] 18 [facility] [place] Repository 02/16/2018/02/18/20 [id number] Ambulatory [place] 18 [facility] Repository 01/22/2018/01/28/20 [id number] Ambulatory [place] 18 [facility] Repository 01/20/2018/01/22/20 [id number] Ambulatory [place] 18 [facility] Repository 12/08/2017/12/09/19 [id number] Ambulatory [place] 18 [facility] Repository 12/08/2017/12/10/19 [id number] Ambulatory [place] 18 [facility] Repository 12/08/2017/12/12/19 [id number] Ambulatory [place] 18 [facility] Repository 12/05/2017 [id number] Emergency [facility] [place] g:H.ED Repository 11/17/2017/11/19/19 [id number] Ambulatory [place] 18 [facility] Repository 11/11/2017/11/13/19 [id number] Ambulatory [place] 18 [facility] [place] Repository 11/08/2017/11/09/19 [id number] Emergency [facility] [address] [place] [address] ing:ED Repository 11/03/2017/11/06/19 [id number] Ambulatory [place] 18 [facility] [place] Repository 11/03/2017/11/04/19 [id number] Ambulatory [place] [facility] Repository 09/26/2017/10/01/[id number] Repository 09/17/2017/09/26/[id number] Repository PAYERS PAYERS ENCOUNTER GUARANTOR PAYER SUBSCRIBER SOURCE 06/22/2018 GIDEON A Primary GIDEON A Kelli [id number] Insurance:PIA DANGELO: [facility] [id number]: Repository [id number]: 330 [id number] (HP) Date:2222-54-06[address] [place], [place] [address]RICARDA HOROWITZ [address]RS: 06/22/2018 Secondary NOT GIVENUNK Kelli Insurance:SELF PAY [facility] Number: Effective Repository Date:2018-06-22 06/21/2018 GIDEON A Primary GIDEON A Girard [id number] Insurance:PIA BALLKIANA: [facility] [id number] HealthPolicy Number: Repository [id number]: 330 [id number] () Date:5534-49-48[address] [place], [place] [address]RICARDA HOROWITZ [address]SY: 06/21/2018 Secondary NOT GIVENUNK Kelli Insurance:SELF PAY [facility] Number: Effective Repository Date:2018-06-21 03/15/2018 GIDEON A Primary GIDEON A Girard [id number] Insurance:PIA BALLKIANA: [facility] [id number] HealthPolicy Number: Repository [id number]: 330 [id number] () Date:0919-02-31[address] [place], [place] [address]RICARDA KOCH [address]AG: 03/15/2018 Secondary NOT GIVENUNK Girard Insurance:SELF PAY [facility] Number: Effective Repository Date:2018-03-15 12/05/2017 GIDEON A Primary GIDEON A [facility] Medical [id number] Insurance:PIA DÍAZ [place] HEALTH PLANPolicy Repository [id number]: (330) Number: [phone] () [id number] Date:8858-70-81[address] [place] [address]KG: 2017 GIDEON A Primary YASH F Girard [id number] Insurance:Starla DANGELO: [facility] Number: [id number] [id number] Repository [address]Nvu: (330) Date:2186-63-87[phone] () [address] [place] [phone]: 2017 Secondary GIDEON A Girard Insurance:PIA DANGELOB: [facility] [id number] Number: Repository [id number] Date:1971-36-89[address] [place] [address] [place] [address]FS: 2017 Tertiary NOT GIVENUNK Girard Insurance:SELF PAY [facility] Number: Effective Repository Date:2017
== END 2018-06-26 11:15 | disposition home or self-care (01) | DRG 540 ==
LOC: WPOUT 22:26
PROVIDERS: Admitting Provider Obstetrics & Gynecology; Referring Provider Obstetrics & Gynecology; Visit Provider Obstetrics & Gynecology
DX: O64.8XX0 Obstructed labor due to other malposition and malpresentation, not applicable or unspecified (principal); Z3A.40 40 weeks gestation of pregnancy; Z37.0 Single live birth; O42.02 Full-term premature rupture of membranes, onset of labor within 24 hours of rupture; O99.824 Streptococcus B carrier state complicating childbirth; Z87.891 Personal history of nicotine dependence; O75.2 Pyrexia during labor, not elsewhere classified; O09.93 Supervision of high risk pregnancy, unspecified, third trimester
CPT/HCPCS: 59025; 59050; 84112; 85025; 85027; 86850; 86900; 87804; 99218; J7120; A4216; G0378; J2405

== ENCOUNTER 2020-03-25 20:14 | Emergency (ER) | payer MEDICAID, SELFPAY ==
[2020-03-25 20:15] VITALS: BP 145/96; PULSE 71; RESP 22; TEMP 36.3; O2SAT 94; BMI 32.9
--- NOTE | 2020-03-25 20:30 | RAD_ITS ---
STUDY: X-RAY CHEST REASON FOR EXAM: Female, 24 years old. Cough and wheezing. TECHNIQUE: 2 AP portable views COMPARISON: 2017 FINDINGS: The lungs are clear and expanded. There is no demonstrated pleural abnormality. Normal size heart. Normal mediastinum and alphonse. Normal visualized pulmonary arteries. Normal visualized aortic arch and descending thoracic aorta. Normal visualized thoracic spine. Normal visualized ribs, clavicles, and shoulders. There is no demonstrated abnormality of the visualized soft tissue structures of the upper abdomen. RAD/Chest 1 View (Portable) IMPRESSION: Normal x-ray examination of the chest. Electronically Signed: Tres Calero MD at 21:13 EDT , Service support ,
--- NOTE | 2020-03-25 20:32 | ED.DCSUM_ITS ---
- ER Visit Summary Date of Service: 03/25/20 Chief Complaint: Cough History of Present Illness: The patient is a 24 F presenting with cough, shortness of breath. Patient states this started yesterday. She has had a nonproductive cough. She complains of shortness of breath. She had a mild sore throat earlier with cough but this has improved. She complains of myalgias. She denies fever. No known exposure to COVID. She has not lost her sense of taste or smell. No other complaints. Physical Examination: Vitals are stable. Patient is afebrile. Alert no acute distress. HEENT exam pharynx is normal. Neck is supple. Lungs are wheezing bilaterally. Heart is regular rate and rhythm. Abdomen is soft nontender nondistended. Extremities are unremarkable. Skin is warm and dry. No focal neurologic deficit. Remainder of exam is unremarkable. Emergency Department Course and Treatment: Patient was given albuterol, Atrovent aerosols. Chest x-ray shows no acute process. On reevaluation, lung sounds are improved. Patient is feeling improved. Her pulse ox is 98% on room air. COVID test is sent and is pending. Advised to follow-up with primary care physician. Advised return to ED for worsening complaints. Disposition: Discharge home Impression: Viral illness This note was generated with All-Sc[employer] dictation software. It may contain incorrect words, spelling, and punctuation that were not noted in review of the chart prior to signing ED Disposition - Plan for ED Patient: Referrals: Care Physician,No Primary [Primary Care Provider] -
[2020-03-25 20:43] VITALS: PULSE 105; RESP 20; O2SAT 97
[2020-03-25] MEDS: Ipratropium/Albuterol Sulfate 3 ML AMPUL.NEB INHALATION (20:43)
[2020-03-25] MEDS: Albuterol 2.5 MG/3 ML VIAL.NEB. INHALATION ×3 (21:06)
[2020-03-25 21:36] VITALS: BP 153/66; PULSE 71; RESP 22; TEMP 36.3; O2SAT 95
--- NOTE | 2020-03-25 22:02 | CPS ---
x3 Albuterol given to pt. in ED as well
--- NOTE | 2020-03-25 22:09 | ED.DEP ---
ED Disposition - Plan for ED Patient: Instructions: ED Upper Resp Infec No Abx Tx Referrals: Max Carey MD [NON-STAFF] -
[2020-03-25 22:21] VITALS: BP 169/77
== END 2020-03-25 22:26 | disposition home or self-care (01) ==
LOC: ED 21:00
PROVIDERS: Emergency Provider Emergency Medicine
DX: B34.9 Viral infection, unspecified (principal); R05 Cough; R06.02 Shortness of breath; M79.10 Myalgia, unspecified site; J02.9 Acute pharyngitis, unspecified; Z72.0 Tobacco use
CPT/HCPCS: 71045; 87635; 94640; 94799; 99251; 99282; G0463; U0003

== ENCOUNTER 2021-02-15 07:48 | Day surgery (SDC) | payer MEDICAID, SELFPAY ==
[2021-02-15] VITALS (7 sets, daily range): BP systolic 98–132; BP diastolic 56–88; PULSE 55–84; RESP 16–17; TEMP 36.2–36.8; O2SAT 97–99; BMI 33.0
--- NOTE | 2021-02-15 08:16 | RAD_ITS ---
STUDY: X-RAY - ABDOMEN/PELVIS REASON FOR EXAM: Female, 25 years old. Rectal FB TECHNIQUE: COMPARISON: None. FINDINGS: There is an unremarkable bowel gas pattern. There is a 5.3 cm x 1.9 cm metallic foreign body in the proximal rectum. Normal soft tissue structures. Normal visualized osseous structures. RAD/Abdomen Single View IMPRESSION: Foreign body in the proximal portion of the rectum. Electronically Signed: Victoriano Juárez MD at 8:58 EDT , Service support ,
--- NOTE | 2021-02-15 08:17 | EX.ED.DYSGE1 ---
HPI History of Present Illness Chief Complaint: Foreign Body Narrative Narrative: Patient presents with a rectal foreign body, this is a vibrator that was vibrating up until about half an hour ago, the foreign body was inserted about 2-1/2 hours ago. Patient has no abdominal pain. PFSH PFSH Home Medications NK 02/15/21 [History Last Taken Unknown] Allergy/AdvReac Type Severity Reaction Status Date / Time No Known Allergies Allergy Verified 02/15/21 07:48 Social History Smoking Status: Current every day smoker ROS ROS ED ROS Narrative Past medical history: Reviewed, noncontributory Medications: Reviewed Social history: Noncontributory Review of systems: All systems negative except as indicated General: Last ate about 8 hours ago Cardiovascular: No chest pain Respiratory: No shortness of breath or cough Gastrointestinal: No abdominal pain Rectal: Rectal foreign body as in HPI Genitourinary: No dysuria Back: She feels some of the rectal foreign body pain in her back Skin: No rash Neurological: Negative Hematologic: No easy bleeding or easy bruising EXAM Physical Exam Narrative Exam Narrative: Physical exam General: Does not appear in any distress Head: Normocephalic, Atraumatic ENT: Moist membranes Cardiovascular: Regular rate, Regular rhythm Respiratory: No distress, CTA bilaterally Abdomen: Soft, Nontender, Nondistended Rectal: Barely palpated rectal foreign body deep in the rectum. Back: Nontender, Normal Inspection. Negative for: CVA tenderness Extremities: Nontender, No edema Skin: Normal color, No rash Neurological: Alert, Normal Strength, Normal Sensation Psychological: Normal affect Const Vital Signs: 02/15/21 07:49 Temperature 98.2 F Temperature Source Temporal Pulse Rate 84 Respiratory Rate 17 Blood Pressure 132/88 H Blood Pressure Mean 102 Pulse Ox 98 Oxygen Delivery Method Room Air MDM MDM MDM Narrative Medical decision making narrative: X-ray demonstrates the foreign body. I talked to Dr. Conner who will try endoscopy. Radiography Diagnostic Testing: KUB read by emergency doctor shows foreign body in the rectum. Discharge Plan Triage Chief Complaint: Foreign Body ED Provider: Shai Brown Dx/Rx/DC Orders Clinical Impression: FB anus/rectum Prescriptions: No Action NK RF: 0 Primary Care Provider: Care Physician,No Primary Referrals: Care Physician,No Primary [Primary Care Provider] -
--- NOTE | 2021-02-15 08:55 | EX.PCM.CON.S ---
Assessment & Plan Assessment/Plan (1) FB anus/rectum: PLAN: I have discussed the above with the patient. I have offered the patient colonoscopy for retrieval of foreign body. I have explained the risks/benefits of the procedure and described the procedure. I have discussed the risks with the patient, including but not limited to: infection, bleeding, perforation of the GI tract requiring emergency surgery, inability to complete the procedure, injury to any internal organs, complications of anesthesia, possibly need for surgery if unable to retrieve?do not expect etc. - the patient understands and agrees to proceed. I have answered all the patient's questions to the patient's satisfaction and the patient has no further questions. Coco Conner M.D. Pager: [phone] [facility] [address] [place] [address], [facility], [address] [place] [address] Office: [phone] HPI Consult Data Date of Consult: 02/15/21 HPI Narrative HPI Narrative: GIDEON TAYLOR, is a 25 F who presents presents to the ER due to foreign body/vibrator in her rectum. Patient states she was unable to retrieve the vibrator. This occurred about 4:56 AM, patient denies abdominal pain. KUB does show about a 5 cm vibrator that is in the rectum about 5 to 6 cm from the anus. [facility] Home Medications NK 02/15/21 [History Last Taken Unknown] Allergy/AdvReac Type Severity Reaction Status Date / Time No Known Allergies Allergy Verified 02/15/21 07:48 Social History Smoking Status: Current every day smoker tobacco type: cigarettes Physical Exam Const alert, oriented x3 and no apparent distress HEENT normocephalic and head/scalp atraumatic Resp normal respiratory effort Cardio regular rate GI soft to palpation and non-tender; Negative for non-distended Palpation: Negative for guarding Extremity no clubbing, cyanosis or edema Neuro CN's II-XII intact bilaterally Psych mental status grossly normal Charges/Coding Visit Charges Inpatient E&M: 75229 Subs Hosp L2
--- NOTE | 2021-02-15 09:03 | NURSING ---
ENDO ROBOTHAM COLONOSCOPY
[2021-02-15] MEDS: Lactated Ringers 1,000 ML 100 ML IV (09:28)
--- NOTE | 2021-02-15 10:06 | OP.CCLET_ITS ---
02/15/2021 No Primary Care Physician Re : Colonoscopy procedure for [facility] Junior [facility] Physician This procedure was performed on January. My impressions and recommendations are as follows: Impressions : - The rectum and recto-sigmoid colon are normal. - No specimens collected. Recommendations : - Discharge patient to home. - Resume previous diet. - Continue present medications. - Repeat colonoscopy at age 45/50 depending on if insurance has changed the screening age to 45 as [employer] did change it to 45. My findings are described in the full procedure note, which is enclosed. If I can be of further assistance, please feel free to contact me at Doctor phone number(s): , Work: . Sincerely, MD Coco Downey MD 02/15/2021 10:05:49 AM This report has been signed electronically.
--- NOTE | 2021-02-15 10:06 | OP.COLON_ITS ---
Patient Name: Daya Junior Procedure Date: 02/15/2021 9:12 AM Date of : 1995 Age: 25 Procedure: Colonoscopy Indications: Foreign body in the rectum, Abnormal abdominal x-ray of the GI tract Providers: Coco Conner MD Medicines: Monitored Anesthesia Care Patient Profile: This is a 25 year old female. Last Colonoscopy: none. The patient's first colonoscopy is today. Complications: No immediate complications. Procedure: Pre-Anesthesia Assessment: - Prior to the procedure, a History and Physical was performed, and patient medications and allergies were reviewed. The patient's tolerance of previous anesthesia was also reviewed. The risks and benefits of the procedure and the sedation options and risks were discussed with the patient. All questions were answered, and informed consent was obtained. Prior Anticoagulants: The patient has taken no previous anticoagulant or antiplatelet agents. ASA Grade Assessment: Per anesthesia. After reviewing the risks and benefits, the patient was deemed in satisfactory condition to undergo the procedure. After I obtained informed consent, the scope was passed under direct vision. Throughout the procedure, the patient's blood pressure, pulse, and oxygen saturations were monitored continuously. The Colonoscope was introduced through the anus and advanced to the sigmoid colon for evaluation. This was the intended extent. The colonoscopy was performed without difficulty. No bowel preparation was given prior to the procedure. The quality of visualization was adequate. Scope In: 9:52:38 AM Scope Out: 9:55:52 AM Total Procedure Duration Time 0 hours 3 minutes 14 seconds Findings: The perianal and digital rectal examinations were normal. The rectum and recto-sigmoid colon appeared normal. vibrator removed manually with ness catheter prior to scope Impression: - The rectum and recto-sigmoid colon are normal. - No specimens collected. Recommendation: - Discharge patient to home. - Resume previous diet. - Continue present medications. - Repeat colonoscopy at age 45/50 depending on if insurance has changed the screening age to 45 as [employer] [place] [employer] did change it to 45. Procedure Code(s): --- Professional --- 15074, 53, Colonoscopy, flexible; diagnostic, including collection of specimen(s) by brushing or washing, when performed (separate procedure) Diagnosis Code(s): --- Professional --- T18.5XXA, Foreign body in anus and rectum, initial encounter R93.3, Abnormal findings on diagnostic imaging of other parts of digestive tract CPT copyright 2017 [employer] [place] [employer]. All rights reserved. The codes documented in this report are preliminary and upon medical records coder review may be revised to meet current compliance requirements. MD Coco Downey MD 02/15/2021 10:05:49 AM This report has been signed electronically. Number of Addenda: 0 Note Initiated On: 02/15/2021 9:12 AM
== END 2021-02-15 10:45 | disposition home or self-care (01) ==
LOC: ED 08:49 → SDC 08:58 → AC 09:11
PROVIDERS: Emergency Provider Emergency Medicine; Visit Provider Surgery
PROC: 0DJD8ZZ Inspection of Lower Intestinal Tract, Via Natural or Artificial Opening Endoscopic (ICD-10-PCS; CPT 45378; principal; 2021-02-15 09:25)
DX: T18.5XXA Foreign body in anus and rectum, initial encounter (principal); X58.XXXA Exposure to other specified factors, initial encounter; Y93.9 Activity, unspecified; Y92.9 Unspecified place or not applicable; Y99.9 Unspecified external cause status; F17.210 Nicotine dependence, cigarettes, uncomplicated
CPT/HCPCS: 45332; 74018; 87426; J7120; A4216

== ENCOUNTER 2022-03-18 14:36 | Observation (INO) | payer MEDICAID, SELFPAY ==
[2022-03-18 14:37] VITALS: BP 134/89; PULSE 56; RESP 15; TEMP 36.4; O2SAT 97; BMI 30.3
--- NOTE | 2022-03-18 15:29 | US_ITS ---
ACR Level 3 findings have been noted. An addendum which confirms receipt of the report will follow. INDICATION: PAIN EXAMINATION: US Abdomen RUQ (limited) TECHNIQUE: Jennings-scale and color Doppler imaging was performed of the right upper abdominal quadrant. COMPARISON: None. Findings: The liver is homogenous and normal in echogenicity and echotexture. There is no evidence of contour nodularity. No focal hepatic mass is identified. The main portal vein is normal in size and patent demonstrating hepatopetal flow. The gallbladder is hydropic and contains a single nonmobile stone in the neck. Sonographic Vargas''s tenderness is appreciated. There is no evidence of intrahepatic biliary ductal dilatation. The CBD is nondilated measuring 4 mm at the level of the fior hepatis. The visualized portions of the pancreas are unremarkable without evidence of focal or diffuse enlargement. Specifically, the tail is obscured by overlying bowel gas. Right kidney measures 11.3 cm in length. It is normal in echogenicity. No focal renal lesion is identified. There is no evidence of hydronephrosis. US/Gallbladder IMPRESSION: Findings suspicious for acute cholecystitis. Electronically Signed: Bandar Farooq MD at 17:17 EDT ,
--- NOTE | 2022-03-18 15:32 | EDS_ITS ---
HPI HPI - GI History of Present Illness Chief Complaint: Abd Pain Detail of Chief Complaint: Right upper quadrant abdominal pain. Informant: patient Abdominal Pain/Flank Pain Onset: Today Context: Gradual Onset Timing: Continuous Quality: Aching Location: RUQ Current Severity: Mild Maximum Severity: Mild Worsened by: Nothing Relieved by: Nothing Nausea/Vomiting/Emesis GI Symptom: Positive for Nausea; Negative for Vomiting Onset: Today Severity: Mild Diarrhea/Melena/Hematochezia GI Symptom: Positive for Diarrhea; Negative for Melena or Hematochezia Associated Symptoms Associated Symptoms: Negative for Dysuria, Frequency, Hematuria or Urgency Narrative Narrative: 26-year-old female recent COVID within the last 2 weeks. Prior no other abdominal surgeries. Ab0. Today he developed right upper quadrant abdominal pain about 10:15 AM and the pain is increased. So she had nausea no vomiting. She had diarrhea today and yesterday mainly loose stools no melena. No fever. No recent weight loss. No abdominal trauma. She has not eaten all today. She denies any lower quadrant abdominal pain. Last menstrual period was 7 to 10 days ago. She denies any vaginal bleeding or discharge. No dysuria. Prior similar symptoms: No Recent Illness/Hospitalization: No PFSH PFSH Medical History no medical history no medical history Home Medications NK 02/15/21 [History Last Taken Unknown] Allergy/AdvReac Type Severity Reaction Status Date / Time No Known Allergies Allergy Verified 03/18/22 14:37 Social History Smoking Status: Current every day smoker tobacco type: cigarettes ROS ROS ED Review of Systems ROS Unobtainable: Denies due to encephalopathy Constitutional Constitutional ED: Denies chills or fever(s) ENT ENT ED: Denies ear pain Cardiovascular Cardiovascular: Denies chest pain Respiratory/Chest Respiratory/Chest: Denies cough or dyspnea Gastrointestinal Gastrointestinal: Reports abdominal pain, diarrhea and nausea; Denies constipation, melena or vomiting Genitourinary Genitourinary ED: Denies dysuria or hematuria Musculoskeletal Musculoskeletal: Denies arthralgias Integumentary Denies abscess Neurologic Neurologic: Denies headache(s) Psychiatric Psychiatric: Denies anxiety Endocrine Endocrinology: Denies polydipsia Hematologic/Lymphatic Hematologic/Lymphatic: Denies easy bleeding Allergic/Immunologic Allergic/Immunologic ED: Denies mouth swelling EXAM Physical Exam Narrative Exam Narrative: 26-year-old female no acute distress. Vital signs stable afebrile. Does not look septic or toxic. Does not look dehydrated. H EENT exam unremarkable. Neck nontender. Lungs clear to auscultation bilaterally. Heart regular rhythm rate about 60 no murmur. Abdomen soft nondistended normal bowel sounds no peritoneal signs. Tender right upper quadrant only. Right lower quadrant left- sided abdomen nontender. Nondistended. Normal bowel sounds. Soft. No hernia or mass. No obstruction. Moving all 4 extremities. Back nontender. Const Vital Signs: 03/18/22 14:37 Temperature 97.5 F L Temperature Source Temporal Pulse Rate 56 L Respiratory Rate 15 Blood Pressure 134/89 H Blood Pressure Mean 104 Pulse Ox 97 Oxygen Delivery Method Room Air Positive well nourished, well developed and obese; Negative for cachectic, contractures or unkempt General Appearance ED: well developed and NAD; Negative for unkempt, cachectic, contractures or pallor Nutritional Appearance: obese; Negative for cachectic HEENT Reports moist mucous membranes normocephalic and atraumatic; Negative for trauma or tenderness Eyes PERRL and EOMs intact bilaterally General Eye ED: Negative for pale conjunctiva or scleral icterus Neck no lymphadenopathy, supple and no JVD General: Negative for tenderness Carotids: Negative for other Lymph Lymphatic: Negative for other Resp normal respiratory effort Effort and Inspection: Negative for respiratory distress or retractions Auscultation: Negative for rales, rhonchi or wheezes Cardio regular rate, regular rhythm, S1 normal heart sound, S2 normal heart sound and no murmurs GI non-distended and no masses; Negative for non-tender Inspection: Negative for abdominal distention Auscultation: normoactive bowel sounds; Negative for hyperactive bowel sounds or hypoactive bowel sounds Palpation: soft and tender; Negative for guarding, rigid, hepatomegaly, splenomegaly, hernia, mass, pulsatile mass or rebound tenderness present Back/Spine no CVA tenderness General Back: Negative for CVA tenderness Cervical Spine: Negative for cervical spine tenderness Thoracic Spine / Upper Back: Negative for thoracic spinal tenderness Extremity full ROM General Extremety ED: Negative for edema or tenderness General Extremity: Negative for edema Neuro CN's II-XII intact bilaterally and moves all extremities Sensorium / Orientation: alert, oriented to person, oriented to place and oriented to time; Negative for orientation impaired, confused, lethargic or stuporous Motor Exam: strength 5/5 throughout Psych mental status grossly normal Appearance: Negative for unkempt Mood & Affect: Negative for depressed Skin no wounds General Skin Exam: Negative for jaundice or pallor Lesions: no lesions Rashes: no rashes Trauma: Negative for abrasion Nails: Negative for discolored MDM MDM MDM Narrative Medical decision making narrative: 26-year-old female with right upper quadrant abdominal pain. Family history of gallbladder disease. She will be treated with IV fluids, Zofran, Toradol and morphine for pain. Ultrasound and labs pending. Repeat exam at 5:30 PM patient still having pain. Has positive right upper quadrant pain to palpation. I discussed with her test results. She does not want any more at this time for pain she says she is feeling better after the Toradol, morphine and Zofran. I have the general surgeon on page to discuss admission for acute cholecystitis. Lab Data Attestation: I reviewed the patient's lab results. Lab results narrative: CBC shows a white count of 7. H&H 14 and 42. Platelets low at 96. CMP shows a gap of 6 BUN and creatinine 22 and 0.8. Liver enzymes unremarkable. Lipase normal at 87. test negative. Ultrasound read by the radiologist as acute cholecystitis. Labs: Laboratory Results - last 24 hr 03/18/22 03/18/22 03/18/22 14:51 14:51 14:51 WBC 7.8 RBC 4.76 Hgb 14.1 Hct 42.0 MCV 88.2 MCH 29.6 MCHC 33.6 RDW Std Deviation 44.0 H RDW Coeff of Dai 13.5 Plt Count 96 L MPV 13.9 H Immature Gran % (Auto) 0.300 Neut % (Auto) 56.5 Lymph % (Auto) 30.3 Wharton % (Auto) 7.2 Eos % (Auto) 5.4 H Baso % (Auto) 0.3 Absolute Neuts (auto) 4.4 Absolute Lymphs (auto) 2.36 Nucleated RBC % 0 Platelet Estimate SLT DEC Plt Morphology Comment LARGE RBC Morphology N CHROM Anisocytosis RARE Sodium 141 Potassium 4.0 Chloride 107 Carbon Dioxide 28.0 Anion Gap 6 BUN 22 H Creatinine 0.86 Estim Creat Clear Calc 97.24 Est GFR (MDRD) Af Amer 103 Est GFR (MDRD) Non-Af 85 BUN/Creatinine Ratio 25.5 H Glucose 78 Calcium 8.7 Total Bilirubin 0.30 AST 14 L ALT 31 Alkaline Phosphatase 104 Total Protein 7.7 Albumin 3.8 Globulin 3.9 Albumin/Globulin Ratio 1.0 Lipase 87 Serum , Qual NEGATIVE Radiography Diagnostic Testing: Clinical Impression(s) from Imaging Studies Gallbladder Ultrasound 03/18/22 15:29 IMPRESSION: Findings suspicious for acute cholecystitis. Electronically Signed: Bandar Farooq MD at 17:17 EDT , Discharge Plan Triage Chief Complaint: Abd Pain ED Provider: Anders Adair Dx/Rx/DC Orders Clinical Impression: Abdominal pain, Acute cholecystitis Prescriptions: No Action NK Primary Care Provider: Antoinette Matt Referrals: Antoinette Matt MD [Primary Care Provider] - Disposition Disposition: Acute Care Hospital [facility]
[2022-03-18 15:49] LABS: Absolute Lymphocyte Count 2.36 X10^3/uL (0.83-4.51); Absolute Neutrophil Count 4.4 X10^3/uL (2.0-7.7); Basophil# 0.02 X10^3/uL; Basophil% 0.3 % (0-1); Eosinophil# 0.42 X10^3/uL; Eosinophils% 5.4 % (0-5); Hemoglobin 14.1 g/dL (12.0-15.0); Lymphocyte # 2.36 X10^3/ul (0.83-4.51); Lymphocyte % 30.3 % (19-41); Mean Corp Hgb Conc 33.6 g/dL (32-36); Mean Corpuscular Hgb 29.6 pg (27.0-32.0); Mean Corpuscular Volume 88.2 fL (81-99); Mean Platelet Vol. 13.9 fl (6.2-12.0); Monocyte# 0.56 X10^3/uL; Monocyte% 7.2 % (0-10); NRBC Flagged by Analyzer 0 % (0-5); Neutrophil # 4.41 X10^3/uL (2.7-7.7); Neutrophil % 56.5 % (47-70); POSITIVE COUNT YES; Platelet Count 96 K/mm3 (150-450); RBC Distribution Width CV 13.5 % (11.6-14.6); Red Blood Count 4.76 M/mm3 (4.2-5.4); White Blood Count 7.8 K/mm3 (4.4-11.0)
[2022-03-18 15:51] LABS: Differential Indicated SCAN CRITERIA MET
[2022-03-18] MEDS: 0.9% Normal Saline 1,000 ML 1000 ML IV (15:53)
[2022-03-18] MEDS: Morphine 4 MG/ML Syringe 6 MG IV (15:53)
[2022-03-18] MEDS: Ketorolac 30 MG/ML Syringe IV (15:53)
[2022-03-18 15:54] LABS: Internal QC Validated? YES +Cl - CLEAR BKGD; Pregnancy, Serum, hCG Quali. NEGATIVE Negative
[2022-03-18] MEDS: Ondansetron 4 MG/2 ML Vial IV (15:54)
[2022-03-18 16:00] LABS: AST(SGOT) 14 U/L (15-37); Alanine Aminotransfer ALT/SGPT 31 U/L (13-56); Albumin, Serum 3.8 g/dL (3.2-5.0); Alkaline Phosphatase 104 U/L (45-117); Anion Gap 6 (5-15); BUN 22 mg/dL (7-18); BUN/Creat Ratio 25.5 RATIO (10-20); Calcium,Total 8.7 mg/dL (8.5-10.1); Chloride 107 mmol/L (98-107); Creatinine, Serum 0.86 mg/dL (0.55-1.02); EST Glomerular Filtration Rate 85 mL/min (>60); Est Glom Filt Rate - Afr Amer 103 mL/min (>60); Estimated Creatinine Clearance 97.24 ml/min; Globulin 3.9 g/dL (2.2-4.2); Glucose 78 mg/dL (74-106); Lipase 87 U/L (73-393); Protein, Total 7.7 g/dL (6.4-8.2); Sodium Level 141 mmol/L (136-145)
[2022-03-18 16:25] LABS: Anisocytosis RARE; Platelet Estimate SLT DEC (ADEQ); Platelet Morphology LARGE; Red Cell Morphology N CHROM NORMAL (NORM C&C)
[2022-03-18 17:57] VITALS: BP 124/74; PULSE 42; RESP 15; TEMP 36.6; O2SAT 98
--- NOTE | 2022-03-18 18:02 | CON.PCM.SX_ITS ---
Assessment & Plan Assessment/Plan (1) Acute cholecystitis: PLAN: My plan is to perform a laparoscopic cholecystectomy with possible intra operative cholangiogram. The planned surgical procedure was discussed extensively with the patient. The risks, benefits, anticipated outcomes and possible complication were mentioned. My staff has also explained the procedure in understandable terms and the patient was given the option to take printed material concerning the planned procedure. The patient had the opportunity to ask questions concerning the planned procedure. The patient freely consents to the planned procedure. HPI Consult Data Date of Consult: 03/18/22 HPI Narrative HPI Narrative: GIDEON TAYLOR, is a 26-year-old female recent COVID within the last 2 weeks.? Prior no other abdominal surgeries.? Ab0.? Today he developed right upper quadrant abdominal pain about 10:15 AM and the pain is increased.? So she had nausea no vomiting.? She had diarrhea today and yesterday mainly loose stools no melena.? No fever.? No recent weight loss.? No abdominal trauma.? She has not eaten all today.? She denies any lower quadrant abdominal pain.? Last menstrual period was 7 to 10 days ago.? She denies any vaginal bleeding or discharge.? No dysuria. Prior similar symptoms: No Recent Illness/Hospitalization: No Work-up in the emergency department did not show any elevation in her LFTs and a normal white count. Ultrasound did confirm acute cholecystitis. [facility] Medical History no medical history Home Medications NK 02/15/21 [History Last Taken Unknown] Allergy/AdvReac Type Severity Reaction Status Date / Time No Known Allergies Allergy Verified 03/18/22 14:37 Social History Smoking Status: Current every day smoker tobacco type: cigarettes ROS Constitutional Constitutional: Denies chills or fever(s) Cardiovascular Cardiovascular: Denies chest pain Respiratory/Chest Respiratory/Chest: Denies cough or dyspnea Gastrointestinal Gastrointestinal: Reports abdominal pain, diarrhea and nausea; Denies constipation, melena or vomiting Physical Exam Const alert, oriented x3 and no apparent distress HEENT normocephalic and head/scalp atraumatic Eyes PERRL and EOMs intact bilaterally Resp clear to auscultation bilaterally Cardio Rate: regular rate Rhythm: regular rhythm GI GI Narrative: No rebound guarding or peritoneal signs are identified Palpation: tender RUQ Bladder / Kidney Exam: no CVA tenderness Extremity normal to inspection and no calf tenderness Lab / Micro Data Result Diagrams: 03/18/22 14:51 03/18/22 14:51 Labs: Laboratory Results - last 24 hr 03/18/22 14:51: WBC 7.8, RBC 4.76, Hgb 14.1, Hct 42.0, MCV 88.2, MCH 29.6, MCHC 33.6, RDW Std Deviation 44.0 H, RDW Coeff of Dai 13.5, Plt Count 96 L, MPV 13.9 H, Immature Gran % (Auto) 0.300, Neut % (Auto) 56.5, Lymph % (Auto) 30.3, Clayton % (Auto) 7.2, Eos % (Auto) 5.4 H, Baso % (Auto) 0.3, Absolute Neuts (auto) 4.4, Absolute Lymphs (auto) 2.36, Nucleated RBC % 0, Platelet Estimate SLT DEC, Plt Morphology Comment LARGE, RBC Morphology N CHROM, Anisocytosis RARE 03/18/22 14:51: Sodium 141, Potassium 4.0, Chloride 107, Carbon Dioxide 28.0, Anion Gap 6, BUN 22 H, Creatinine 0.86, Estim Creat Clear Calc 97.24, Est GFR (MDRD) Af Amer 103, Est GFR (MDRD) Non-Af 85, BUN/Creatinine Ratio 25.5 H, Glucose 78, Calcium 8.7, Total Bilirubin 0.30, AST 14 L, ALT 31, Alkaline Phosphatase 104, Total Protein 7.7, Albumin 3.8, Globulin 3.9, Albumin/Globulin Ratio 1.0, Lipase 87 03/18/22 14:51: Serum , Qual NEGATIVE Radiology Impression Gallbladder Ultrasound 03/18/22 15:29 IMPRESSION: Findings suspicious for acute cholecystitis. Electronically Signed: Bandar Farooq MD at 17:17 EDT ,
[2022-03-18 18:47] VITALS: BMI 30.3
[2022-03-18 19:00] VITALS: BP 131/76; PULSE 49; RESP 16; TEMP 36.4; O2SAT 99
--- NOTE | 2022-03-18 19:06 | NURSING ---
covid symptoms started on fri03/08/22. went [facility] 03/10/22. was told on mon 03/11/22 she was +COVID
[2022-03-18] MEDS: 0.9% Normal Saline 1,000 ML 100 ML IV (19:37)
[2022-03-18 23:00] VITALS: BP 100/78; PULSE 66; RESP 16; TEMP 36.9; O2SAT 97
[2022-03-19] VITALS (12 sets, daily range): BP systolic 100–145; BP diastolic 56–86; PULSE 50–85; RESP 16–18; TEMP 36.6–36.9; O2SAT 97–100; BMI 30.4
--- NOTE | 2022-03-19 | GALL_PTH ---
PATIENT: YUVAL BALL LOC: MS3 U#:[id number] AGE/SX: 26/F ROOM: OR315 RE03/18/[address]: Dr. Regis Chery MD : 1995 BED: 1 DIS: 03/20/2022 SPEC #: [id number] RECD: 03/19/22 17:36 STATUS: MENG SEALS #: [id number] STEPHAN: 03/19/22 00:[address]: Regis Chery DEPT: SURGICAL PATHOLOGY RECD BY: Stefan Gleason ENTERED: 03/20/22 11:41 SP TYPE: CAM GOINS DR: Dr. Antoinette Matt MD Tissues: Gallbladder, NOS Procedures: Surgery Specimen Level III HEADER OPERATION: Laparoscopic cholecystectomy PRE-OP DIAGNOSIS: Acute cholecystitis TISSUE SUBMITTED: Gallbladder MICROSCOPIC DIAGNOSIS Gallbladder, cholecystectomy: Acute and chronic cholecystitis and cholelithiasis. LYN:leslie 03/21/2022 MICROSCOPIC DESCRIPTION Slides are reviewed. GROSS DESCRIPTION Received is one container labeled with the patient's name and designated gallbladder. The specimen consists of a gallbladder measuring 8 cm in length and up to 4 cm in diameter. The external surface is pink-arroyo, smooth and glistening for the most part. Focally it is granular, hemorrhagic and contains cautery artifact. The gallbladder contains green-yellow mucoid bile and one ovoid, greenish-yellow stone measuring 2 cm in greatest dimension. The mucosa is bile-stained and without any mass lesions. The gallbladder wall measures up to 0.5 cm in thickness. Sections of the gallbladder wall reveal edematous cut surfaces. Housekeeping Staff sections from the gallbladder and the cystic duct are submitted in one cassette. / SJ:leslie 03/20/2022 TC:2 CPT: 48359
[2022-03-19] MEDS: 0.9% Normal Saline 1,000 ML 100 ML IV ×2 (05:40→18:35)
[2022-03-19 05:53] LABS: Absolute Lymphocyte Count 2.47 X10^3/uL (0.83-4.51); Absolute Neutrophil Count 2.2 X10^3/uL (2.0-7.7); Basophil# 0.02 X10^3/uL; Basophil% 0.4 % (0-1); Eosinophil# 0.33 X10^3/uL; Eosinophils% 6.1 % (0-5); Hematocrit 40.4 % (37-47); Hemoglobin 13.2 g/dL (12.0-15.0); Lymphocyte # 2.47 X10^3/ul (0.83-4.51); Lymphocyte % 45.6 % (19-41); Mean Corp Hgb Conc 32.7 g/dL (32-36); Mean Corpuscular Hgb 29.4 pg (27.0-32.0); Mean Platelet Vol. 13.1 fl (6.2-12.0); Monocyte# 0.38 X10^3/uL; NRBC Flagged by Analyzer 0 % (0-5); Neutrophil # 2.21 X10^3/uL (2.7-7.7); Neutrophil % 40.7 % (47-70); POSITIVE COUNT YES; Platelet Count 89 K/mm3 (150-450); RBC Distribution Width CV 13.5 % (11.6-14.6); RBC Distribution Width SD 44.7 fl (35.1-43.9); Red Blood Count 4.49 M/mm3 (4.2-5.4); White Blood Count 5.4 K/mm3 (4.4-11.0)
--- NOTE | 2022-03-19 05:55 | EKG12_ITS ---
Test Reason : PRE-OP Blood Pressure : / mmHG Vent. Rate : 040 BPM Atrial Rate : 040 BPM P-R Int : 226 ms QRS Dur : 092 ms QT Int : 498 ms P-R-T Axes : 039 075 035 degrees QTc Int : 405 ms Marked sinus bradycardia with 1st degree A-V block Abnormal ECG Confirmed by TESHA GILMORE, JAYDON ([id number]), film editor SAHWN ACOSTA ([id number]) on 03/20/2022 11:37:39 AM Referred By: GUERA Confirmed By:JAYDON PARKINSON MD
[2022-03-19 06:38] LABS: ALB/GLOB Ratio 0.9 RATIO (0.9-2.4); AST(SGOT) 31 U/L (15-37); Alanine Aminotransfer ALT/SGPT 57 U/L (13-56); Albumin, Serum 3.1 g/dL (3.2-5.0); Alkaline Phosphatase 97 U/L (45-117); Anion Gap 6 (5-15); BUN 19 mg/dL (7-18); BUN/Creat Ratio 25.1 RATIO (10-20); Calcium,Total 7.9 mg/dL (8.5-10.1); Chloride 112 mmol/L (98-107); Creatinine, Serum 0.76 mg/dL (0.55-1.02); EST Glomerular Filtration Rate 99 mL/min (>60); Est Glom Filt Rate - Afr Amer 120 mL/min (>60); Estimated Creatinine Clearance 110.04 ml/min; Globulin 3.4 g/dL (2.2-4.2); Glucose 88 mg/dL (74-106); Potassium 3.8 mmol/L (3.5-5.1); Protein, Total 6.5 g/dL (6.4-8.2); Sodium Level 139 mmol/L (136-145)
--- NOTE | 2022-03-19 14:44 | OP.PCM_ITS ---
Problems Associated Problem List Diagnoses (1) Acute cholecystitis: Report of Operation Date of Procedure: 03/19/22 Pre-Operative Diagnosis: Acute cholecystitis with cholelithiasis Post-Operative Diagnosis: Same Surgery/Procedure Performed:: Laparoscopic cholecystectomy Surgeon: Regis Chery hand tennis ball coverer: Qiana Mejía Type of Anesthesia: General Anesthesiologist: Roque Bui Specimen's removed: Gallbladder Drains: None Estimated Blood Loss (mL): < 25 cc Fluids Replaced: 900 cc LR Description of Procedure: Patient brought to the operating room. Placed in the supine position. Under excellent general anesthetic the abdomen was sterilely prepped and draped in the usual fashion. Local was injected infraumbilically. Dissection was carried down to the fascia. The fascia was grasped with a [place]. Varies needle was placed inside the abdomen. The abdomen was insufflated to 15 torr. A 10/12 trocar was placed not difficulty. Patient was placed in the head up and rotated to the left position. Subxiphoid #5 trochars placed, inferior to this another #5 trocar was placed, laterally a #5 trocar was placed. All these trochars were placed under direct visualization without injury to underlying structures. I aspirated out the gallbladder it was fairly tense. I grabbed the fundus of the gallbladder and retracted in a cephalad direction. I took down significant adhesions to the gallbladder with electrocautery. I dissected out the cystic duct and the cystic artery and posterior to the liver. I placed hemoclips proximally and distally on the duct ligated the duct place hemoclips proximally and distally on the artery and ligated the artery placed an extra clip on the artery. Deliver the gallbladder from the gallbladder bed with use of electrocautery I had no spillage of bile or stones placed in a specimen bag and delivered through the umbilical port without difficulty. Reinflated the abdomen inspected the liver bed use electrocautery for good my stasis. Once this was achieved I remove the trochars under direct visualization good mistakes was noted. Close the fascia the umbilical port with a [id number] stitch of 0 Vicryl. Skin incisions were closed with subcuticular stitches of 4-0 Monocryl. Steri-Strips were applied sterile dressings were applied and the patient tolerated the procedure well. Admit VTE Documentation VTE Present on Admission: No VTE Mechan Device Prophylaxis: SCD's VTE Pharm Prophylaxis ordered?: No Reason prophylaxis not ordered:: Treatment Not Indicated
[2022-03-19] MEDS: Bupivacaine 0.25% 30 ML Vial (14:49)
--- NOTE | 2022-03-19 14:51 | DCINST_ITS ---
Discharge Instructions Procedure Gallbladder Diet Discharge Diet: Light diet - advance as tolerated Activity Discharge Activity: May Not Drive (for 2-3 days or while taking narcotic pain medications.) and - (Do not drive, work heavy equipment or sign legal documents for 24 hours.) May shower in (days): 1 (with the bandage in place.) Additional Activity Instructions:: Pain medication may cause nausea. You should typically eat light foods as you take your pain medications. Pain medication may also cause constipation. If this is a problem for you, please discuss with your doctor. Dressing / Incision Call your doctor if your incision/area has: Continuous Slow Oozing, Sudden Increased Bleeding, Increased Pain/ Swelling, Increased Redness and Foul Sm elling Discharge Call your doctor if you observe: Fever of 101 or Higher Suture Line Care: Avoid Pulling/Pushing and Avoid Pinching/Bending Additional Dressing/Incision Instructions:: Leave operative bandaids on for 2 days. When you remove dressing, leave Steri-Strips on until your follow-up appointment, or until the Steri-Strips fall off on their own. Follow Up Care Please Follow Up With: Jacklyn Marte PA-C When: Call office to schedule an appointment to be seen in 7 days after surgery. Test Results: Test results from this visit will be discussed in further detail at your follow- up appointment, if applicable. Discharge Plan Admission Admit Date/Time: 03/18/22 18:47 Attending Provider: Regis Chery Primary Care Provider: Antoinette Matt Discharge Orders/Prescriptions Prescriptions: New oxycodone-acetaminophen [Endocet] 5-325 mg tablet 1 tab PO Q4H PRN (Reason: pain) 5 Days Qty: 20 0RF Referrals / Follow Up: Antoinette Matt MD [Primary Care Provider] - Jacklyn Marte PA-C [Med Staff - [facility] Prof] - Disposition Disposition (needs filled in before D/C Order can be placed): Home, Self Care
[2022-03-19] MEDS: oxyCODONE 5 MG Tablet PO (18:33)
[2022-03-20 03:00] VITALS: BP 118/61; PULSE 56; RESP 18; TEMP 36.6; O2SAT 97
[2022-03-20] MEDS: 0.9% Normal Saline 1,000 ML 100 ML IV (05:06)
[2022-03-20] MEDS: oxyCODONE 5 MG Tablet PO (05:09)
--- NOTE | 2022-03-20 06:59 | DCINST_ITS ---
Discharge Instructions Diet Discharge Diet: Light diet - advance as tolerated Activity May shower in (days): 1 (with the bandage in place.) Additional Activity Instructions:: Pain medication may cause nausea. You should typically eat light foods as you take your pain medications. Pain medication may also cause constipation. If this is a problem for you, please discuss with your doctor. Dressing / Incision Call your doctor if your incision/area has: Continuous Slow Oozing, Sudden Increased Bleeding, Increased Pain/ Swelling, Increased Redness and Foul Smelling Discharge Call your doctor if you observe: Fever of 101 or Higher Suture Line Care: Avoid Pulling/Pushing and Avoid Pinching/Bending Additional Dressing/Incision Instructions:: Leave operative bandaids on for 2 days. When you remove dressing, leave Steri-Strips on until your follow-up appointment, or until the Steri-Strips fall off on their own. Follow Up Care Please Follow Up With: Jacklyn Marte PA-C Test Results: Test results from this visit will be discussed in further detail at your follow- up appointment, if applicable. Discharge Plan Admission Admit Date/Time: 03/18/22 18:47 Attending Provider: Regis Chery Primary Care Provider: Antoinette Matt Instructions Additional Instructions / Restrictions: Recommended pain control regimen - May take 600 mg ibuprofen (Motrin) and then in 3-4 hours, may take 650 mg acetaminophen (Tylenol), then in 3-4 hours may take 600 mg ibuprofen, then in 3- 4 hours may take 650 mg acetaminophen and so on for 2-3 days May take narcotic pain medication for pain that is not controlled by above and at night for comfort through the night Leave dressings in place May shower, do not scrub in the areas of the dressings as they may unravel. If they become overly soiled you may remove them but leave incision site open to air. Do not soak - no tub baths/swimming Ice applied to areas of discomfort may help No lifting/pushing/pulling greater than 20 pounds for two weeks. Regular diet as tolerated, drink plenty of fluids. Avoid carbonated beverages for a few days as this will cause abdominal bloating and thus discomfort after our surgery. Please call my office for an appointment to see Jacklyn Marte PA-C, in 1-2 weeks. Office number is Discharge Orders/Prescriptions Prescriptions: New oxycodone-acetaminophen [Endocet] 5-325 mg tablet 1 tab PO Q4H PRN (Reason: pain) 5 Days Qty: 20 0RF Referrals / Follow Up: Antoinette Matt MD [Primary Care Provider] - [place],ROMINA JohnsonC [Med Staff - [facility]] - Disposition Disposition (needs filled in before D/C Order can be placed): Home, Self Care
--- NOTE | 2022-03-20 07:01 | PCM.PN.SRG ---
Subjective Subjective patient with minimal abdominal pain has been able to void Objective Data Objective Data Vital Signs: Vital Signs Temp Pulse Resp BP Pulse Ox O2 Del Method O2 Flow Rate 97.9 F 56 L 18 118/61 97 Room Air 2 03/20/22 03:00 03/20/22 03:00 03/20/22 03:00 03/20/22 03:00 03/20/22 03:00 03/20/22 03:00 03/19/22 16:30 Oxygen Flow Rate (L/min) 2 Oxygen Delivery Method Room Air Weight: 87.9 kg Body Mass Index (BMI) 30.4 Intake & Output: Intake and Output for Last 24 Hours 03/18/22 03/19/22 03/20/22 23:59 23:59 23:59 Intake Total 1000 / 1300 2800 / 3260 19090 Output Total 900 / 900 Balance 1000 / 1300 1900 / 2360 1909 Lab / Micro Data Attestation: I reviewed the patient's lab results. Result Diagrams: 03/19/22 05:33 03/19/22 05:33 Physical Exam Const alert and oriented x3 General Appearance: cooperative Neck supple Resp normal respiratory effort Effort and Inspection: able to speak in complete sentences GI GI Narrative: abdomen is soft and benign, dressings intact with minimal seepage Assessment & Plan Assessment/Plan (1) Status post laparoscopic cholecystectomy: PLAN: patient for discharge this morning follow up in clinic with PA postoperative instructions discussed with patient
[2022-03-20 09:00] VITALS: BP 123/84; PULSE 61; RESP 18; TEMP 36.7; O2SAT 97
== END 2022-03-20 09:20 | disposition home or self-care (01) ==
LOC: ED 17:38 → MS3 03-19 06:25
PROVIDERS: Admitting Provider Surgery; Emergency Provider Emergency Medicine; PCP Internal Medicine; Visit Provider Surgery
PROC: (CPT 47562; principal; 2022-03-19 13:25)
DX: K80.12 Calculus of gallbladder with acute and chronic cholecystitis without obstruction (principal); F17.210 Nicotine dependence, cigarettes, uncomplicated; Z86.16 Personal history of COVID-19
CPT/HCPCS: 47562; 00790; 36415; 76705; 80053; 83690; 84703; 85025; 88304; 93005; 96361; 96365; 96366; 96375; 99218; 99251; 99283; 99406; J7030; J7120; A4216; G0378; G0463; J2405

== ENCOUNTER 2022-03-28 13:24 | Emergency (ER) | payer MEDICAID, SELFPAY ==
[2022-03-28 13:25] VITALS: BP 131/77; PULSE 85; RESP 16; TEMP 37.2; O2SAT 98; BMI 29.7
[2022-03-28 13:26] VITALS: BP 131/77; PULSE 85; RESP 16; TEMP 37.2; O2SAT 98
--- NOTE | 2022-03-28 14:18 | CT_ITS ---
STUDY: CT ABDOMEN AND PELVIS WITH CONTRAST REASON FOR EXAM: Female, 26 years old. s/p lap porfirio with fever and discomfort. RADIATION DOSAGE (If Supplied By Facility): CTDIvol = ( 8.82 ) mGy, DLP = ( 581.15 ) mGycm TECHNIQUE: Transaxial images were obtained from the dome of the diaphragm to the symphysis pubis without oral contrast. IV 100mL Isovue-370 was administered. Sagittal and coronal images were reconstructed. Individualized dose optimization techniques were used for this CT. COMPARISON: None. FINDINGS: The visualized lung bases are unremarkable. The visualized portions of the heart are within normal limits. Normal liver. The patient is status post cholecystectomy. Postoperative changes are seen in the region of the gallbladder fossa. Borderline splenomegaly. Normal pancreas. Normal bilateral adrenal glands. Normal right kidney. Normal left kidney. Retroaortic left renal vein. Normal visualized stomach. Normal small intestine. Normal colon. The appendix is visualized and appears normal. Normal abdominal aorta. Normal inferior vena cava. Normal retroperitoneum. Normal urinary bladder. Postoperative soft tissue prominence in the region of the umbilicus in keeping with prior laparoscopic surgery. Normal osseous structures. CT/Abdomen/Pelvis W IV Cont ONLY IMPRESSION: Postoperative changes in the gallbladder fossa in keeping with recent laparoscopic cholecystectomy. No acute abnormality is seen. Electronically Signed: Victoriano Juárez MD at 15:36 EDT ,
--- NOTE | 2022-03-28 14:20 | ED.VIS.GI ---
HPI HPI - GI History of Present Illness Chief Complaint: Wound Check Detail of Chief Complaint: Fever with nausea, vomiting and diarrhea post laparoscopic cholecystectomy Informant: patient Abdominal Pain/Flank Pain Onset: Days Context: Gradual Onset Timing: Continuous Location: RUQ Current Severity: Mild Maximum Severity: Mild Nausea/Vomiting/Emesis GI Symptom: Positive for Nausea and Vomiting Onset: Days Severity: Mild Diarrhea/Melena/Hematochezia GI Symptom: Positive for Diarrhea; Negative for Melena or Hematochezia Onset: Days Stool Quality: Positive for Loose Severity: Mild Associated Symptoms Associated Symptoms: Negative for Dysuria, Frequency, Hematuria or Urgency Narrative Narrative: 26-year-old female no seen past medical history. Last Friday had a laparoscopic cholecystectomy. I actually saw her and diagnosed her through the emergency department. Dr. Regis Chery took out her gallbladder. Initially she was doing well she was discharged on Friday. The last several days she has developed nausea, vomiting and diarrhea. Fever as high as 103. Denies dysuria. Mild chills. Mild right upper quadrant pain. Not getting worse. 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 Prior similar symptoms: Yes Recent Illness/Hospitalization: No PFSH PFSH Medical History delivery delivered Depression Home Medications ondansetron 4 mg disintegrating tablet 4 mg PO Q6H PRN nausea and vomiting #7 tabs 03/28/22 [Rx Last Taken Unknown] Allergy/AdvReac Type Severity Reaction Status Date / Time nickel Allergy Rash Verified 03/28/22 13:27 Surgical History Status post laparoscopic cholecystectomy Social History Smoking Status: Current every day smoker tobacco type: cigarettes ROS ROS ED ROS Narrative Nausea, vomiting, diarrhea, abdominal pain, fever. Review of Systems ROS Unobtainable: Denies due to encephalopathy Constitutional Constitutional ED: Reports chills and fever(s) ENT ENT ED: Denies ear pain Cardiovascular Cardiovascular: Denies chest pain Respiratory/Chest Respiratory/Chest: Denies cough or dyspnea Gastrointestinal Gastrointestinal: Reports abdominal pain, diarrhea, nausea and vomiting; Denies constipation or melena Genitourinary Genitourinary ED: Denies dysuria or hematuria Musculoskeletal Musculoskeletal: Denies arthralgias Integumentary Denies abscess Neurologic Neurologic: Denies headache(s) Psychiatric Psychiatric: Denies anxiety Endocrine Endocrinology: Denies polydipsia Hematologic/Lymphatic Hematologic/Lymphatic: Denies easy bleeding Allergic/Immunologic Allergic/Immunologic ED: Denies mouth swelling EXAM Physical Exam Narrative Exam Narrative: 26-year-old female no acute distress. Current temperature is 9 9 degrees. She does not look septic toxic. H EENT exam unremarkable. Moist with membranes. Neck nontender no medicate rate and rhythm rate about 85 no murmur. Abdomen soft nondistended normal bowel sounds no peritoneal signs. No obstruction. Well-healing laparoscopic incisions are dry and clean 1 has a small wound separation but no signs of infection. No discharge, drainage, pus or cellulitis. They are only minimally tender. She also has some mild right upper quadrant tenderness. No peritoneal signs. Moving all 4 extremities. Back nontender. Neurologically she is awake and alert. Const Vital Signs: 03/28/22 13:25 03/28/22 13:26 03/28/22 15:08 Temperature 99 F 99 F 98.1 F Temperature Source Oral Oral Oral Pulse Rate 85 85 81 Respiratory Rate 16 16 16 Blood Pressure 131/77 H 131/77 H 138/66 H Blood Pressure Mean 95 95 90 Pulse Ox 98 98 97 Oxygen Delivery Method Room Air Room Air Room Air Positive well nourished and well developed; Negative for obese, cachectic, contractures or unkempt General Appearance ED: well developed and NAD; Negative for unkempt, cachectic, contractures or pallor Nutritional Appearance: Negative for cachectic or obese HEENT Reports moist mucous membranes normocephalic and atraumatic; Negative for trauma or tenderness Eyes PERRL and EOMs intact bilaterally General Eye ED: Negative for pale conjunctiva or scleral icterus Neck no lymphadenopathy, supple and no JVD General: Negative for tenderness Carotids: Negative for other Lymph Lymphatic: Negative for other Resp normal respiratory effort and clear to auscultation bilaterally Effort and Inspection: Negative for respiratory distress or retractions Auscultation: Negative for rales, rhonchi or wheezes Cardio regular rate, regular rhythm, S1 normal heart sound, S2 normal heart sound and no murmurs Rate: Negative for bradycardia Rhythm: Negative for abnormal rhythm GI non-distended and no masses; Negative for non-tender GI Narrative: Mild right upper quadrant tenderness. Well-healing laparoscopic incisions. One with small wound separation but no discharge, no pus or cellulitis. Inspection: Negative for abdominal distention Auscultation: normoactive bowel sounds Palpation: soft and tender; Negative for guarding, rigid, hepatomegaly, splenomegaly, hernia, mass, pulsatile mass or rebound tenderness present Back/Spine no CVA tenderness General Back: Negative for CVA tenderness Cervical Spine: Negative for cervical spine tenderness Thoracic Spine / Upper Back: Negative for thoracic spinal tenderness Lumbar Spine / Lower Back: Negative for lumbar spinal tenderness Coccyx: Negative for other Extremity full ROM General Extremety ED: Negative for edema or tenderness General Extremity: Negative for edema Neuro CN's II-XII intact bilaterally, moves all extremities and no sensory deficits noted Sensorium / Orientation: alert, oriented to person, oriented to place and oriented to time; Negative for orientation impaired, confused, lethargic or stuporous Motor Exam: strength 5/5 throughout Psych mental status grossly normal and thought process normal Appearance: Negative for unkempt Attitude: No agitated Mood & Affect: Negative for depressed or anxious Skin no wounds General Skin Exam: Negative for jaundice or pallor Lesions: no lesions and No lesion noted Rashes: no rashes Trauma: Negative for abrasion Nails: Negative for discolored MDM MDM MDM Narrative Medical decision making narrative: 26-year-old status post laparoscopic cholecystectomy on last Friday. Was doing well last several days has developed nausea, vomiting and diarrhea. 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 With her recent surgery CAT scan and labs to be obtained to rule out any intra-abdominal abscess or other etiologies. Repeat exam patient is doing well at 4:15 PM. She will be discharged home. Treated as a viral gastroenteritis. Zofran for nausea. Fluids and rest. Return if worse. Follow-up with her general surgeon if not improving. At this time between the labs and the CAT scan there is no signs of any acute postoperative complication. Lab Data Attestation: I reviewed the patient's lab results. Lab results narrative: CBC normal white count of 6.5 H&H of 14.4 and 43. Urinalysis shows no nitrates. 10-25 red cells no white cells. Only 1+ bacteria. She is having no urinary symptoms. Electrolytes show potassium 3.4. Normal BUN and creatinine. Normal gap. Normal liver enzymes except for alkaline phosphatase of 122. Lipase is normal. Labs are basically unremarkable. Labs: Laboratory Results - last 24 hr 03/28/22 03/28/22 03/28/22 14:56 14:56 14:56 WBC 6.5 RBC 4.79 Hgb 14.4 Hct 43.0 MCV 89.8 MCH 30.1 MCHC 33.5 RDW Std Deviation 46.2 H RDW Coeff of Dai 14.0 Plt Count 160 MPV 12.2 H Immature Gran % (Auto) 0.200 Neut % (Auto) 65.3 Lymph % (Auto) 16.4 L [place] % (Auto) 16.9 H Eos % (Auto) 0.6 Baso % (Auto) 0.6 Absolute Neuts (auto) 4.3 Absolute Lymphs (auto) 1.07 Nucleated RBC % 0 Sodium 139 Potassium 3.4 L Chloride 105 Carbon Dioxide 28.0 Anion Gap 6 BUN 10 Creatinine 0.77 Estim Creat Clear Calc 108.61 Est GFR (MDRD) Af Amer 117 Est GFR (MDRD) Non-Af 96 BUN/Creatinine Ratio 12.9 Glucose 90 Calcium 9.2 Total Bilirubin 0.70 AST 21 ALT 55 Alkaline Phosphatase 122 H Total Protein 7.8 Albumin 3.8 Globulin 4.0 Albumin/Globulin Ratio 1.0 Lipase 78 Urine Color Yellow Urine Clarity Sl. Cloudy Urine pH 6.0 Ur Specific [place] 1.020 Urine Protein 30 H Urine Glucose (UA) Normal Urine Ketones Negative Urine Occult Blood 150 H Urine Nitrite Negative Urine Bilirubin Negative Urine Urobilinogen Normal Ur Leukocyte Esterase Negative Urine RBC 10-25 SEEN Urine WBC 0 SEEN Ur Squamous Epith Cells 0-5 SEEN Urine Bacteria 1+ Urine Mucus 1+ Radiography Diagnostic Testing: Clinical Impression(s) from Imaging Studies Abdomen/Pelvis CT 03/28/22 14:18 IMPRESSION: Postoperative changes in the gallbladder fossa in keeping with recent laparoscopic cholecystectomy. No acute abnormality is seen. Electronically Signed: Victoriano Juárez MD at 15:36 EDT , CAT scan is read by the radiologist shows no acute abnormality. Discharge Plan Triage Chief Complaint: Wound Check ED Provider: Anders Adair Dx/Rx/DC Orders Clinical Impression: Viral gastroenteritis Instructions: ED Gastroenteritis, Viral (Adult) Prescriptions: New ondansetron 4 mg tablet,disintegrating 4 mg PO Q6H PRN (Reason: nausea and vomiting) Qty: 7 0RF Primary Care Provider: Antoinette Matt Referrals: Antoinette Matt MD [Primary Care Provider] - 3-5 Days if not improving Activity Restrictions/Additional Instructions: Plenty of fluids and rest. Zofran as needed for nausea. Follow-up with your doctor if not improving or return if worse. Your CAT scan and labs tonight were unremarkable. This appears to be a virus and not related to your gallbladder surgery. Disposition Disposition: Home, Self Care
[2022-03-28 15:02] LABS: White Blood Cells 0 SEEN /hpf (0-5)
[2022-03-28 15:04] LABS: Absolute Lymphocyte Count 1.07 X10^3/uL (0.83-4.51); Absolute Neutrophil Count 4.3 X10^3/uL (2.0-7.7); Basophil# 0.04 X10^3/uL; Basophil% 0.6 % (0-1); Eosinophil# 0.04 X10^3/uL; Eosinophils% 0.6 % (0-5); Hemoglobin 14.4 g/dL (12.0-15.0); Lymphocyte # 1.07 X10^3/ul (0.83-4.51); Lymphocyte % 16.4 % (19-41); Mean Corp Hgb Conc 33.5 g/dL (32-36); Mean Corpuscular Hgb 30.1 pg (27.0-32.0); Mean Corpuscular Volume 89.8 fL (81-99); Mean Platelet Vol. 12.2 fl (6.2-12.0); Monocyte% 16.9 % (0-10); NRBC Flagged by Analyzer 0 % (0-5); Neutrophil # 4.25 X10^3/uL (2.7-7.7); Neutrophil % 65.3 % (47-70); Platelet Count 160 K/mm3 (150-450); RBC Distribution Width SD 46.2 fl (35.1-43.9); Red Blood Count 4.79 M/mm3 (4.2-5.4); White Blood Count 6.5 K/mm3 (4.4-11.0)
[2022-03-28 15:05] LABS: Color, Urine Yellow (Yellow); Glucose, Dipstick Normal (Normal); Ketone-Dipstick Negative (Negative); Leukocyte Esterase-Dipstick Negative /ul (Negative); Nitrite-Dipstick Negative (Negative); Occult Blood-Urine 150 /ul (Negative); Protein-Dipstick 30 mg/dl (Negative); Urine Bilirubin Dipstick Negative (Negative); Urine Clarity Sl. Cloudy (Clear); Urine Urobilinogen Normal (Normal)
[2022-03-28 15:08] VITALS: BP 138/66; PULSE 81; RESP 16; TEMP 36.7; O2SAT 97
[2022-03-28 15:14] LABS: Bacteria 1+ /hpf (None Seen); Mucous, Urine 1+ /hpf (<or=2+); Red Blood Cells-Urine 10-25 SEEN /hpf (0-5); Squamous Epithelial Cells - UA 0-5 SEEN /hpf (5-10)
[2022-03-28 15:21] LABS: AST(SGOT) 21 U/L (15-37); Alanine Aminotransfer ALT/SGPT 55 U/L (13-56); Albumin, Serum 3.8 g/dL (3.2-5.0); Alkaline Phosphatase 122 U/L (45-117); Anion Gap 6 (5-15); BUN 10 mg/dL (7-18); BUN/Creat Ratio 12.9 RATIO (10-20); Calcium,Total 9.2 mg/dL (8.5-10.1); Chloride 105 mmol/L (98-107); Creatinine, Serum 0.77 mg/dL (0.55-1.02); EST Glomerular Filtration Rate 96 mL/min (>60); Est Glom Filt Rate - Afr Amer 117 mL/min (>60); Estimated Creatinine Clearance 108.61 ml/min; Glucose 90 mg/dL (74-106); Lipase 78 U/L (73-393); Potassium 3.4 mmol/L (3.5-5.1); Protein, Total 7.8 g/dL (6.4-8.2); Sodium Level 139 mmol/L (136-145)
[2022-03-28] MEDS: 0.9% Normal Saline 1,000 ML 125 ML IV (15:24)
[2022-03-28 16:29] VITALS: PULSE 67; RESP 17; TEMP 37.1; O2SAT 99
== END 2022-03-28 16:30 | disposition home or self-care (01) ==
PROVIDERS: Emergency Provider Emergency Medicine; PCP Internal Medicine; Visit Provider Emergency Medicine
DX: A08.4 Viral intestinal infection, unspecified (principal); F17.210 Nicotine dependence, cigarettes, uncomplicated; Z90.49 Acquired absence of other specified parts of digestive tract
CPT/HCPCS: 74177; 80053; 81001; 83690; 85025; 87811; 96360; 99283; J7030; Q9967; A4216

== ENCOUNTER 2022-07-29 14:15 | Emergency (ER) | payer MEDICAID, SELFPAY ==
[2022-07-29 14:16] VITALS: BP 141/83; PULSE 69; RESP 16; TEMP 36.5; O2SAT 97
--- NOTE | 2022-07-29 15:24 | EDS_ITS ---
HPI History of Present Illness Chief Complaint: Back Informant: patient Onset/Context/Timing Onset: Weeks (1 week) Current Severity: Mild Maximum Severity: Moderate Worsened by: improves with Movement Narrative Narrative: Patient presents with a 1 week history of low back pain. She states she was diagnosed with degenerative disc disease several years ago. Every once in a while she will injure her back and she will have pain for a few days. Pain is now been ongoing for a week. Pain is in the left lower lumbar region and with certain movements will shoot down her leg. She has had sciatica in the past. She been taking Tylenol intermittently for pain. There was no fall or direct injury. 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 No fever or chills. No urinary symptoms. [facility] Medical History Degenerative disc disease Home Medications cyclobenzaprine 10 mg tablet 10 mg PO BID PRN muscle spasm #10 tabs 07/29/22 [Rx Last Taken Unknown] lidocaine 5 % topical patch (Lidoderm) 1 patch topical DAILY #15 ea 07/29/22 [Rx Last Taken Unknown] naproxen 500 mg tablet (Naprosyn) 500 mg PO BID PRN pain #20 tabs 07/29/22 [Rx Last Taken Unknown] prednisone 20 mg tablet 40 mg PO DAILY #8 tabs 07/29/22 [Rx Last Taken Unknown] Allergy/AdvReac Type Severity Reaction Status Date / Time nickel [dandre] Allergy Rash Verified 07/29/22 14:18 ROS ROS ED Constitutional Constitutional ED: Denies chills or fever(s) Eyes Eyes: Denies change in vision or discharge from eye(s) ENT ENT ED: Denies discharge from eye(s), rhinorrhea or sore throat Cardiovascular Cardiovascular: Denies chest pain or palpitations Respiratory/Chest Respiratory/Chest: Denies cough or dyspnea Gastrointestinal Gastrointestinal: Denies abdominal pain, diarrhea, nausea or vomiting Genitourinary Genitourinary ED: Denies difficulty urinating or dysuria Musculoskeletal Musculoskeletal: Reports back pain Integumentary Denies Abrasions or rash Neurologic Neurologic: Denies headache(s), paresthesias or weakness Psychiatric Psychiatric: Denies anxiety or depression Allergic/Immunologic Allergic/Immunologic ED: Denies lip swelling or urticaria EXAM Physical Exam Const Vital Signs: 07/29/22 14:16 Temperature 97.7 F L Temperature Source Temporal Pulse Rate 69 Respiratory Rate 16 Blood Pressure 141/83 H Blood Pressure Mean 102 Pulse Ox 97 Oxygen Delivery Method Room Air Positive well nourished and well developed General Appearance ED: well developed HEENT Reports normocephalic and head/scalp atraumatic Eyes PERRL and EOMs intact bilaterally Neck supple Chest Wall inspection of chest normal and palpation of chest normal Resp normal respiratory effort and clear to auscultation bilaterally Cardio regular rate and regular rhythm GI normal to inspection, nondistended, normoactive bowel sounds Palpation: soft Back/Spine Back/Spine Narrative: Reproducible tenderness in the left low lumbar paraspinal muscles. No midline tenderness. No overlying skin change. Extremity normal to inspection Neuro oriented x3 and no sensory deficits noted Sensorium / Orientation: alert Motor Exam: strength 5/5 throughout Psych mental status grossly normal Skin no rashes or lesions noted MDM MDM MDM Narrative Medical decision making narrative: Patient hears a muscle spasm with sciatica. She will be treated with anti- inflammatories, Flexeril, prednisone, and Lidoderm patches. First dose is given here. She is written off work today and tomorrow. Discharge Plan Triage Chief Complaint: Back ED Provider: Alma Juarez Dx/Rx/DC Orders Clinical Impression: Sciatica Instructions: ED Sciatica Prescriptions: New naproxen [Naprosyn] 500 mg tablet 500 mg PO BID PRN (Reason: pain) Qty: 20 0RF cyclobenzaprine 10 mg tablet 10 mg PO BID PRN (Reason: muscle spasm) Qty: 10 0RF lidocaine [Lidoderm] 5 % adhesive patch,medicated 1 patch topical DAILY Qty: 15 0RF Rx Instructions: leave on most painful area for up to 12 hrs prednisone 20 mg tablet 40 mg PO DAILY Qty: 8 0RF Stand Alone Forms: ED Work / School Excuse Primary Care Provider: rEnst Gottlieb Referrals: Ernst Gottlieb MD [Primary Care Provider] - Disposition Disposition: Home, Self Care
[2022-07-29] MEDS: predniSONE 20 MG Tablet 60 MG PO (15:28)
[2022-07-29] MEDS: Naproxen 500 MG Tablet PO (15:28)
[2022-07-29] MEDS: Lidocaine 5% Patch 1 PATCH TOPICAL (15:32)
== END 2022-07-29 15:36 | disposition home or self-care (01) ==
LOC: ED 15:35
PROVIDERS: Emergency Provider Emergency Medicine; Visit Provider Emergency Medicine
DX: M54.30 Sciatica, unspecified side (principal); Z79.52 Long term (current) use of systemic steroids
CPT/HCPCS: 99283